=== PATIENT | female | born 1960 | race African-American/Black ===

== ENCOUNTER 2017-02-16 10:28 | Inpatient (IN) | payer OTHER ==
[2017-02-16] VITALS (14 sets, daily range): BP systolic 109–178; BP diastolic 58–103; PULSE 76–114; RESP 15–24; TEMP 97.8–98.9; O2SAT 96–100
[~2017-02-16] VITALS: Ht 152.4 cm; Wt 95.5 kg
[~2017-02-16 10:28] MED LIST: ASPI1TAB69 PO; ASPI81TA82 PO; CYCL1TAB29 PO; FLON0.053; FLUT50SP EACH NARE; GLIP10TA6 PO; IBUP800T23 PO; LISI40TA PO; NITR1SUB3 SL; SIMV5TAB3 PO
[2017-02-16] MEDS ORDERED: ASPIRIN 325 MG TAB PO ONE (11:00)
[2017-02-16] MEDS ORDERED: SODIUM CHLORIDE 0.9% FLUSH 10 ML FLUSH IVF PRN (11:00)
--- NOTE | 2017-02-16 11:02 | PD ---
HPI Chief Complaint: Chest Pain Time Seen by Provider: 10:47 Travel History International Travel<30 days: No Contact w/Intl Traveler<30days: No Traveled to known affect area: No History of Present Illness HPI 56 y/o female states she's been having intermittent chest pain for 2 months but it has gotten bad over the past couple days. She states this morning's episode felt even more intense. She states she took a baby aspirin and 2 nitroglycerin and the pain is now resolved. She states rest will help to episodes clear. She states her primary care physician ordered a stress test and she was told there was a blockage based on this and she was referred to Dr. Bernard that she has elected to switch to Dr. Archer. She had a cardiac catheterization scheduled for today but this got canceled after she switched atg java developer. She denies any other concurrent complaints. Severity is now resolved. Quality when present is tight. PFSH Past Medical History Blood Disorders: No Cancer: No High Cholesterol: Yes Chest Pain: Yes Diabetes: Yes (DIET CONTROLLED) Patient Takes Glucophage: Yes (GLIPIZIDE ) Diminished Hearing: No Genitourinary: No Hypertension: Yes Musculoskeletal: No Neurologic: No Psychiatric: No Respiratory: No ?: Not Menopausal: Yes : 0 Past Surgical History Abdominal Surgery: No Cardiac Surgery: No Ear Surgery: No Endocrine Surgery: No Eye Surgery: No Genitourinary Surgery: No Gynecologic Surgery: Yes (TOTAL HYSTERECTOMY) Hysterectomy: Yes Pacemaker: No Thoracic Surgery: No Social History Alcohol Use: No Tobacco Use: No Substance Use: No Allergies-Medications (Allergen,Severity, Reaction): Coded Allergies: No Known Allergies (Verified , 12/27/16) Reported Meds & Prescriptions Reported Meds & Active Scripts Active Nitroglycerin SL (Nitroglycerin) 0.4 Mg Subl 0.4 Mg SL DIRECTED PRN ONE TABLET UNDER THE TONGUE NEEDED FOR CHEST PAIN, MAY REPEAT EVERY FIVE MINUTES FOR A TOTAL OF 3 DOSES OR CALL 911 IF NO RELIEF Reported Aspir-81 (Aspirin) 81 Mg Tabdr Lisinopril 40 Mg Tab 40 Mg PO DAILY Glipizide 10 Mg Tab 10 Mg PO DAILY Take 30 minutes before a meal Review of Systems Except as stated in HPI: all other systems reviewed are Neg Physical Exam Narrative GENERAL: Well-nourished, well-developed patient. SKIN: Warm and dry. HEAD: Normocephalic and atraumatic. EYES: No injection or drainage. ENT: No nasal drainage noted. NECK: Supple, trachea midline. CARDIOVASCULAR: Regular rate and rhythm RESPIRATORY: Breath sounds equal bilaterally. No accessory muscle use. GASTROINTESTINAL: Abdomen soft, non-tender, nondistended. EXTREMITIES: No edema. NEUROLOGICAL: Awake and alert. Motor and sensory grossly within normal limits. Normal speech. Data Data Last Documented VS Vital Signs Date Time Temp Pulse Resp B/P Pulse Ox O2 Delivery O2 Flow Rate FiO2 02/16/17 11:15 88 15 145/73 99 Room Air 178/92 02/16/17 10:39 98.4 Orders Electrocardiogram (02/16/17 ) Electrocardiogram (02/16/17 10:48) Ckmb (Isoenzyme) Profile (02/16/17 10:48) Complete Blood Count With Diff (02/16/17 10:48) Comprehensive Metabolic Panel (02/16/17 10:48) Magnesium (Mg) (02/16/17 10:48) Prothrombin Time / Inr (Pt) (02/16/17 10:48) Act Partial Throm Time (Ptt) (02/16/17 10:48) Troponin I (02/16/17 10:48) Chest, Single Ap (02/16/17 10:48) Ecg Monitoring (02/16/17 10:48) Bilateral Bp Monitoring (02/16/17 10:48) Iv Access Insert/Monitor (02/16/17 10:48) Oximetry (02/16/17 10:48) Sodium Chloride 0.9% Flush (Ns Flush) (02/16/17 11:00) Aspirin (Aspirin) (02/16/17 11:00) Nitroglycerin 2% Oint (Nitroglycerin 2% (02/16/17 11:15) CKMB (02/16/17 10:50) CKMB% (02/16/17 10:50) Heparin Infusion FROILAN.Q1H (02/16/17 12:16) Heparin Inj (Heparin Inj) (02/16/17 12:30) Heparin Inj (Heparin Inj) (02/16/17 18:30) Heparin Inj (Heparin Inj) (02/16/17 18:30) Heparin-D5w Inj (Heparin-D5w Inj) (02/16/17 12:30) Cbc No Diff, Includes Plts (02/19/17 06:00) Act Partial Throm Time (Ptt) (02/16/17 19:16) Occult Blood (Hemoccult) Stool (02/16/17 12:16) Diet Npo (02/16/17 Lunch) Consult Cardiology (02/16/17 ) Admit Order (Ed Use Only) (02/16/17 12:24) Admit To Inpatient (02/16/17 ) Code Status (02/16/17 12:24) Vital Signs (Adult) FROILAN.Q4H (02/16/17 12:24) Activity Oob With Assistance (02/16/17 12:24) Aircraft Maintenance Engineer / Telemetry FROILAN.Q8H (02/16/17 12:24) Resp Oxygen Jesus C Titrat 1-4 L (02/16/17 ) Sodium Chloride 0.9% Flush (Ns Flush) (02/16/17 12:30) Sodium Chloride 0.9% Flush (Ns Flush) (02/16/17 21:00) Inpatient Certification (02/16/17 ) Labs Laboratory Tests Test 02/16/17 10:50 White Blood Count 8.2 TH/MM3 Red Blood Count 4.98 MIL/MM3 Hemoglobin 12.7 GM/DL Hematocrit 39.8 % Mean Corpuscular Volume 79.9 FL Mean Corpuscular Hemoglobin 25.4 PG Mean Corpuscular Hemoglobin 31.8 % Concent Red Cell Distribution Width 14.6 % Platelet Count 241 TH/MM3 Mean Platelet Volume 8.4 FL Neutrophils (%) (Auto) 48.5 % Lymphocytes (%) (Auto) 40.5 % Monocytes (%) (Auto) 8.6 % Eosinophils (%) (Auto) 1.7 % Basophils (%) (Auto) 0.7 % Neutrophils # (Auto) 4.0 TH/MM3 Lymphocytes # (Auto) 3.3 TH/MM3 Monocytes # (Auto) 0.7 TH/MM3 Eosinophils # (Auto) 0.1 TH/MM3 Basophils # (Auto) 0.1 TH/MM3 CBC Comment DIFF FINAL Differential Comment Prothrombin Time 10.7 SEC Prothromb Time International 1.0 RATIO Ratio Activated Partial 25.3 SEC Thromboplast Time Sodium Level 139 MEQ/L Potassium Level 4.4 MEQ/L Chloride Level 105 MEQ/L Carbon Dioxide Level 26.5 MEQ/L Anion Gap 8 MEQ/L Blood Urea Nitrogen 16 MG/DL Creatinine 1.03 MG/DL Estimat Glomerular Filtration 67 ML/MIN Rate Random Glucose 303 MG/DL Calcium Level 8.8 MG/DL Magnesium Level 2.0 MG/DL Total Bilirubin 0.3 MG/DL Aspartate Amino Transf 29 U/L (AST/SGOT) Alanine Aminotransferase 39 U/L (ALT/SGPT) Alkaline Phosphatase 135 U/L Total Creatine Kinase 114 U/L Creatine Kinase MB 0.8 NG/ML Troponin I LESS THAN 0.02 NG/ML Total Protein 8.0 GM/DL Albumin 3.4 GM/DL MDM Medical Decision Making Medical Screen Exam Complete: Yes Emergency Medical Condition: Yes Medical Record Reviewed: Yes (past history confirmed) Interpretation(s) EKG is normal sinus rhythm at [address] segment changes or T-wave inversion CBC & BMP Diagram 02/16/17 10:50 Last 24 hours Impressions Chest X-Ray 02/16/17 1048 Signed Impressions: Service Date/Time: Thursday, February 16, 2017 10:49 - CONCLUSION: Minimal atelectasis otherwise no evidence of acute process. Srinath Malloy MD Differential Diagnosis VA, angina, musculoskeletal, gastritis Narrative Course Will check blood work, chest x-ray and dose with additional aspirin and monitor patient developed pain, nitro paste ordered patient updated and agrees to admit Physician Communication Physician Communication dr Negrete states to start on heparin and work on getting nuclear stress test results from Dr. Bernard to find area of defect resident team states to admit under dr mukherjee and notify about need for records Diagnosis Primary Impression: Angina at rest Admitting Information Admitting Physician Requests: Admit Kelly Singleton MD Feb 16, 2017 11:02
[2017-02-16 11:04] LABS: BASOPHIL # 0.1 TH/MM3 (0-0.2); BASOPHIL % 0.7 % (0.0-2.0); EOSINOPHIL # 0.1 TH/MM3 (0-0.4); EOSINOPHIL % 1.7 % (0.0-4.0); HEMATOCRIT 39.8 % (35.0-46.0); HEMO FLAGS DIFF FINAL; LYMPH % 40.5 % (9.0-44.0); LYMPHOCYTE # 3.3 TH/MM3 (1.0-4.8); MEAN CELL VOLUME 79.9 FL (80.0-100.0); MEAN CORPUSCULAR HEMOGLOBIN 25.4 PG (27.0-34.0); MEAN CORPUSCULAR HGB CONC 31.8 % (32.0-36.0); MONO % 8.6 % (0.0-8.0); NEUT % 48.5 % (16.0-70.0); PLATELET COUNT 241 TH/MM3 (150-450); RED BLOOD COUNT 4.98 MIL/MM3 (4.00-5.30); RED CELL DISTRIBUTION WIDTH 14.6 % (11.6-17.2); WHITE BLOOD COUNT 8.2 TH/MM3 (4.0-11.0)
[2017-02-16 11:14] LABS: APTT (PATIENT) 25.3 SEC (24.3-30.1); PROTHROMBIN TIME - PATIENT 10.7 SEC (9.8-11.6)
[2017-02-16] MEDS ORDERED: NITROGLYCERIN 2% OINT 1 GM PACKET TOP ONE (11:15)
[2017-02-16 11:35] LABS: ALKALINE PHOSPHATASE 135 U/L (45-117); ALT (GPT) 39 U/L (10-53); ANION GAP 8 MEQ/L (5-15); AST (GOT) 29 U/L (15-37); BICARBONATE 26.5 MEQ/L (21.0-32.0); BLOOD UREA NITROGEN 16 MG/DL (7-18); CHLORIDE 105 MEQ/L (98-107); CREATINE KINASE 114 U/L (26-192); GLOMERULAR FILTRATION RATE 67 ML/MIN (>89); POTASSIUM 4.4 MEQ/L (3.5-5.1); SODIUM (NA) 139 MEQ/L (136-145); TOTAL BILIRUBIN ADULT 0.3 MG/DL (0.2-1.0)
[2017-02-16] MEDS ORDERED: ASPI81TA81 (11:43)
[2017-02-16 11:48] LABS: CKMB 0.8 NG/ML (0.5-3.6)
--- NOTE | 2017-02-16 11:51 | RADRPT ---
EXAM DATE/TIME: 02/16/2017 10:49 [facility] COMPARISON: No previous studies available for comparison. INDICATIONS : Chest pain. MEDICAL HISTORY : Hypertension. Diabetes mellitus type II. Heart blockage. SURGICAL HISTORY : None. ENCOUNTER: Initial ACUITY: 3 weeks PAIN SCORE: 10/10 LOCATION: Bilateral chest FINDINGS: A single view of the chest demonstrates the lungs to be symmetrically aerated without evidence of mas s, infiltrate or effusion. Minimal atelectasis is identified in the right midlung and left base. The cardiomediastinal contours are unremarkable. Osseous structures are intact. CONCLUSION: Minimal atelectasis otherwise no evidence of acute process. Srinath Malloy MD on February 16, 2017 at 11:49 Board Certified Radiologist. This report was verified electronically.
[2017-02-16] MEDS ORDERED: SODIUM CHLORIDE 0.9% FLUSH 10 ML FLUSH IV FLUSH PRN ×2 (12:30→14:15)
[2017-02-16] MEDS ORDERED: HEPARIN SODIUM - IV 10,000 UNITS/10 ML VIAL IV ONE (12:30)
[2017-02-16] MEDS ORDERED: HEPARIN-D5W 25,000 U/250 ML 250 ML IV SCH (12:30)
--- NOTE | 2017-02-16 13:55 | HHI.HP ---
[facility] Service Family Medicine Primary Care Physician Stephen Perez MD Admission Diagnosis angina Diagnoses: International Travel<30 Days: No Contact w/Intl Traveler<30days: No Known Affected Area: No History of Present Illness Patient is a 56 year old female with past history of HTN and DM2 who presented to the ED with chest pain. For the past 3 months she has had intermittent chest tightness, left sided, accompanied by shortness of breath, provoked by physical activity. No tenderness of the chest, nausea, vomiting, fever, chill, arm or jaw pain, sweating, weakness. She states she sees Dr. Perez for primary care , who sent her to have a nuclear stress stress test, which was abnormal. She was also followed with by Dr Bernard for cardiology. Recently she saw for a second opinion. The patient stated she was going to have a cardiac catheterization today, however it was cancelled after changing cardiologists. Over the past week the tightness has gotten worse, especially the past two days. At this point the tightness is exacerbated by minimal physical activity such as walking up stairs or picking anything up. She states she took nitro at 1140pm (02/16/17) and at 900 this morning (02/16/17). No other complaints of abdominal pain, change in bowel habits, change in urinary habits. (Jerry Griffith MD R1) Review of Systems Constitutional: DENIES: Diaphoretic episodes, Fatigue, Fever, Chills, Dizziness , Night Sweats Endocrine: DENIES: Polydipsia, Polyuria Eyes: DENIES: Blurred vision, Diplopia, Eye pain, Vision loss, Double Vision Ears, nose, mouth, throat: DENIES: Tinnitus, Hearing loss, Nasal discharge, Throat pain, Hoarseness, Ear Pain, Running Nose Respiratory: COMPLAINS OF: Shortness of breath, DENIES: Cough, Snoring, Wheezing, Hemoptysis, Sputum production Cardiovascular: COMPLAINS OF: Chest pain, Palpitations, Dyspnea on Exertion, Lower Extremity Edema (normal), DENIES: Syncope Gastrointestinal: DENIES: Abdominal pain, Black stools, Bloody stools, Constipation, Diarrhea, Nausea, Vomiting Genitourinary: DENIES: Urinary frequency, Urinary incontinence, Urgency, Hematuria, Dysuria, Nocturia Musculoskeletal: DENIES: Joint pain, Muscle aches, Joint Swelling Integumentary: DENIES: Rash Neurologic: DENIES: Abnormal gait, Headache, Localized weakness, Paresthesias Psychiatric: DENIES: Anxiety, Confusion, Depression (Jerry Griffith MD R1) Past Family Social History Past Medical History HTN DM type 2 (on glipizide) Past Surgical History Total hysterectomy Reported Medications Reported Meds & Active Scripts Active Nitroglycerin SL (Nitroglycerin) 0.4 Mg Subl 0.4 Mg SL DIRECTED PRN ONE TABLET UNDER THE TONGUE NEEDED FOR CHEST PAIN, MAY REPEAT EVERY FIVE MINUTES FOR A TOTAL OF 3 DOSES OR CALL 911 IF NO RELIEF Reported Aspir-81 (Aspirin) 81 Mg Tabdr Lisinopril 40 Mg Tab 40 Mg PO DAILY Glipizide 10 Mg Tab 10 Mg PO DAILY Take 30 minutes before a meal (Jerry Griffith MD R1) Allergies: Coded Allergies: No Known Allergies (Verified , 12/27/16) Family History Adopted Social History EtOH : none Smoking: never Illicit: Cocaine, marijuana in her 20s lives in [facility] in an apartment alone (Jerry Griffith MD R1) Physical Exam Vital Signs Vital Signs Date Time Temp Pulse Resp B/P Pulse Ox O2 Delivery O2 Flow Rate FiO2 02/16/17 13:10 87 20 170/103 99 02/16/17 11:15 88 15 145/73 99 Room Air 178/92 02/16/17 10:50 98 Room Air 02/16/17 10:48 90 18 99 Room Air 02/16/17 10:39 98.4 98 18 149/83 99 02/16/17 10:33 98.9 104 24 173/93 98 Physical Exam GENERAL: This is a well-nourished, well-developed patient, in no apparent distress. SKIN: No rashes, ecchymoses or lesions. Cool and dry. HEAD: Atraumatic. Normocephalic. No temporal or scalp tenderness. EYES: Pupils equal round and reactive. Extraocular motions intact. No scleral icterus. No injection or drainage. ENT: Nose without bleeding, purulent drainage or septal hematoma. Throat without erythema, tonsillar hypertrophy or exudate. Uvula midline. Airway patent. NECK: Trachea midline. No JVD or lymphadenopathy. Supple, nontender, no meningeal signs. CARDIOVASCULAR: Regular rate and rhythm without murmurs, gallops, or rubs. RESPIRATORY: Clear to auscultation. Breath sounds equal bilaterally. No wheezes , rales, or rhonchi. GASTROINTESTINAL: Abdomen soft, non-tender, nondistended. No hepato-splenomegaly , or palpable masses. No guarding. MUSCULOSKELETAL: Extremities without clubbing, cyanosis, or edema. No joint tenderness, effusion, or edema noted. No calf tenderness. NEUROLOGICAL: Awake and alert. Cranial nerves II through XII intact. Motor and sensory grossly within normal limits. Five out of 5 muscle strength in all muscle groups. Normal speech. Laboratory Laboratory Tests Test 02/16/17 10:50 White Blood Count 8.2 Red Blood Count 4.98 Hemoglobin 12.7 Hematocrit 39.8 Mean Corpuscular Volume 79.9 Mean Corpuscular Hemoglobin 25.4 Mean Corpuscular Hemoglobin 31.8 Concent Red Cell Distribution Width 14.6 Platelet Count 241 Mean Platelet Volume 8.4 Neutrophils (%) (Auto) 48.5 Lymphocytes (%) (Auto) 40.5 Monocytes (%) (Auto) 8.6 Eosinophils (%) (Auto) 1.7 Basophils (%) (Auto) 0.7 Neutrophils # (Auto) 4.0 Lymphocytes # (Auto) 3.3 Monocytes # (Auto) 0.7 Eosinophils # (Auto) 0.1 Basophils # (Auto) 0.1 CBC Comment DIFF FINAL Differential Comment Prothrombin Time 10.7 Prothromb Time International 1.0 Ratio Activated Partial 25.3 Thromboplast Time Sodium Level 139 Potassium Level 4.4 Chloride Level 105 Carbon Dioxide Level 26.5 Anion Gap 8 Blood Urea Nitrogen 16 Creatinine 1.03 Estimat Glomerular Filtration 67 Rate Random Glucose 303 Calcium Level 8.8 Magnesium Level 2.0 Total Bilirubin 0.3 Aspartate Amino Transf 29 (AST/SGOT) Alanine Aminotransferase 39 (ALT/SGPT) Alkaline Phosphatase 135 Total Creatine Kinase 114 Creatine Kinase MB 0.8 Troponin I LESS THAN 0.02 Total Protein 8.0 Albumin 3.4 (Jerry Griffith MD R1) Result Diagram: 02/16/17 1050 02/16/17 1050 Imaging Last Impressions Chest X-Ray 02/16/17 1048 Signed Impressions: Service Date/Time: Thursday, February 16, 2017 10:49 - CONCLUSION: Minimal atelectasis otherwise no evidence of acute process. Srinath Malloy MD (Jerry Griffith MD R1) Assessment and Plan Assessment and Plan 56 year old female with DM2 and HTN who came into the ED complaining of chest tightness. She has had chest tightness for 3 month, had an abnormal nuclear stress test and had a cardiac catheterization with stent scheduled for 02/16/17 which was cancelled when she changed cardiologists. Continues to have severe chest tightness and shortness of breath during minimal physical activity upon admission. Code Status Full (Jerry Griffith MD R1) Attending Attestation THIS PATIENT WAS SEEN AND EXAMINED. CASE DISCUSSED WITH THE RESIDENT PHYSICIANS. I HAVE REVIEWED THE RECORD AND AGREE WITH THE ABOVE NOTE AND PLAN OF CARE WAS DISCUSSED. I HAVE AUTHORIZED THE ORDER FOR ADMISSION TO AN IN- PATIENT STATUS. (Reyes Al MD) Problem List: (1) Chest pain, atypical Status: Acute Plan: 3 months of chest pain, worsening, had a scheduled cath with sten on which was cancelled. -Consult cardiology, appreciate recommendations -Nitro Q8 prn chest pain -F/U lipid profile -Troponin >.2 at admission, follow up troponin @ 1400, 2000 - ASA - [place]/morphine PRN pain (2) Diabetes mellitus type 2 in obese Status: Chronic Plan: Held home medications - Low dose sliding scale insulin (3) Benign hypertension Status: Chronic Plan: Continue home meds -Lisinopril 40mg daily (4) FEN Status: Acute Plan: Fluids -Maintenance NS 140 Electrolytes -Monitor and correct as needed Nutrition -NPO for possible cath, F/U cardiac recommendations PPX -SCDs (likely to have catheterization soon) - Zofran prn (Jerry Griffith MD R1) Physician Certification 2 Midnight Certification Type: Admission for Inpatient Services Order for Inpatient Services The services are ordered in accordance with Medicare regulations or non- Medicare payer requirements, as applicable. In the case of services not specified as inpatient-only, they are appropriately provided as inpatient services in accordance with the 2-midnight benchmark. Estimated LOS (days): 2 2 days is the estimated time the patient will need to remain in the hospital, assuming treatment plan goals are met and no additional complications. Post-Hospital Plan: Home (Jerry Griffith MD R1) Jerry Griffith MD R1 Feb 16, 2017 13:54 Reyes Al MD Feb 16, 2017 16:56
[2017-02-16] MEDS ORDERED: ONDANSETRON HCL 4 MG/2 ML VIAL IVP PRN (14:15)
[2017-02-16] MEDS ORDERED: LACTULOSE SYRUP 20 GM/30 ML CUP PO PRN (14:15)
[2017-02-16] MEDS ORDERED: GLUCAGON 1 MG/ML VIAL OTHER PRN (14:15)
[2017-02-16] MEDS ORDERED: ACETAMINOPHEN/HYDROcodone 325 MG/10 MG TAB PO PRN (14:15)
[2017-02-16] MEDS ORDERED: SENNOSIDES 8.6 MG TAB PO PRN (14:15)
[2017-02-16] MEDS ORDERED: ZOLPIDEM TARTRATE 5 MG TAB PO PRN (14:15)
[2017-02-16] MEDS ORDERED: NALOXONE HCL 0.4 MG/ML AMP IV PRN ×2 (14:15)
[2017-02-16] MEDS ORDERED: MORPHINE SULFATE 4 MG/ML INJ IV PRN (14:15)
[2017-02-16] MEDS ORDERED: ACETAMINOPHEN 325 MG TAB PO PRN (14:15)
[2017-02-16] MEDS ORDERED: BISACODYL 10 MG SUPP RECTAL PRN (14:15)
[2017-02-16] MEDS ORDERED: IBUPROFEN 400 MG TAB PO PRN (14:15)
[2017-02-16] MEDS ORDERED: MAGNESIUM HYDROXIDE SUSP 30 ML CUP PO PRN (14:15)
[2017-02-16] MEDS ORDERED: DEXTROSE 50% IN WATER 50 ML VIAL(D50) IV PRN (14:15)
[2017-02-16] MEDS ORDERED: NITROGLYCERIN 0.4 MG SL 25 TABS/BTL SL PRN (14:30)
--- NOTE | 2017-02-16 14:46 | MB ---
cc: JOSE ANTONIO HAYDEN MD DATE OF CONSULTATION: 02/16/2017 REASON FOR CONSULTATION: Angina. HISTORY OF PRESENT ILLNESS: Miss Cruz is a 56 year-old a 56-year-old female he does have a history of hypertension and diabetes. She had initially been following with Dr. Bernard. She had a normal exercise treadmill study at her primary care providers. She subsequently because of ongoing angina was referred to Dr. Bernard. She underwent nuclear stress test which was reportedly abnormal. He subsequently requested cardiac catheterization and she elected to have a second opinion with my partner Dr. Archer. This was however scheduled for next week. The records from Dr. Bernard are not available. The patient does report progressive episodes of chest pain or any exertion. She has relief with rest. It is over her left thigh. She describes it as a tightness. She is currently pain free. PAST MEDICAL HISTORY: 1. Past medical history significant for hypertension 2. Obesity 3. diabetes. PAST SURGICAL HISTORY: Her surgical history includes a hysterectomy. SOCIAL HISTORY The patient does not smoke or drink. ALLERGIES NO KNOWN DRUG ALLERGIES. OUTPATIENT MEDICATIONS Include 1. Aspirin. 2. Lisinopril 40 mg of 20. 3. Glipizide 10 mg a day. REVIEW OF SYSTEMS Except as mentioned in HPI all 12 systems are negative. PHYSICAL EXAMINATION: On physical examination vital signs are 170 over 103 with a heart rate 87, respiratory rate of 20. IN GENERAL: In general she is a morbidly obese female in no apparent distress. NECK: Her neck is free from jugular venous distention. LUNGS: The lungs are bilaterally clear to auscultation. CARDIOVASCULAR SYSTEM: She has a normal S1, S2, no murmurs, rubs, or gallops were appreciated. ABDOMEN: The abdomen is soft. EXTREMITIES: The extremities are free from edema. LABORATORY VALUES: Significant for creatinine of 1.03. Her glucose is 303, The troponin is less than 0.02. EKG shows sinus tachycardia and 103 beats a minute. There are inverted T-waves inferiorly which is unchanged from her 2010 EKG. IMPRESSION/PLAN: Angina - the patient does give a history of progressive angina. She does have cardiovascular risk factors and reportedly abnormal nuclear stress test. The patient is going to be observed at this point that she is pain free. We will continue an aspirin. She has been placed on heparin. Her blood pressure is uncontrolled, in light of this and her abnormal stress test I am going to add a vasodilator; Amlodipine. Consideration will be given towards catheterization when she has better blood pressure control. Camille Robles /2:14 PM /2:35 PM
[2017-02-16] MEDS ORDERED: SODIUM CHLOR 0.9% 1000 ML INJ 1,000 ML IV SCH (15:00)
[2017-02-16] MEDS: amLODIPine BESYLATE 5 MG TAB PO SCH (15:30)
[2017-02-16] MEDS: INSULIN ASPART SUPPLEMENTAL SCALE SQ SCH ×2 (15:41→21:50)
[2017-02-16] MEDS: ACETAMINOPHEN/HYDROcodone 325 MG/5 MG TAB PO PRN (17:46)
[2017-02-16] MEDS ORDERED: HEPARIN SODIUM - IV 10,000 UNITS/10 ML VIAL IV PRN ×2 (18:30)
[2017-02-16 18:42] LABS: APTT (PATIENT) 36.1 SEC (24.3-30.1)
[2017-02-16] MEDS: DOCUSATE SODIUM 50 MG/SENNA 8.6 MG TAB PO SCH (21:00)
[2017-02-16] MEDS: SODIUM CHLORIDE 0.9% FLUSH 10 ML FLUSH IV FLUSH SCH (21:00)
[2017-02-16] MEDS ORDERED: SODIUM CHLORIDE 0.9% FLUSH 10 ML FLUSH IV FLUSH SCH (21:00)
[2017-02-16] MEDS: NITROGLYCERIN 2% OINT 1 GM PACKET TOPICAL SCH (21:46)
[2017-02-17] VITALS (27 sets, daily range): BP systolic 100–138; BP diastolic 50–81; PULSE 68–112; RESP 16–18; TEMP 98–99.1; O2SAT 98–99
[2017-02-17 02:00] LABS: APTT (PATIENT) 40.5 SEC (24.3-30.1)
[2017-02-17 03:56] LABS: HEMATOCRIT 36.7 % (35.0-46.0); MEAN CELL VOLUME 79.5 FL (80.0-100.0); MEAN CORPUSCULAR HEMOGLOBIN 25.5 PG (27.0-34.0); MEAN CORPUSCULAR HGB CONC 32.1 % (32.0-36.0); PLATELET COUNT 221 TH/MM3 (150-450); RED BLOOD COUNT 4.62 MIL/MM3 (4.00-5.30); RED CELL DISTRIBUTION WIDTH 14.4 % (11.6-17.2); REVIEW FLAG FINAL; WHITE BLOOD COUNT 9.3 TH/MM3 (4.0-11.0)
[2017-02-17 04:32] LABS: ALKALINE PHOSPHATASE 104 U/L (45-117); ALT (GPT) 35 U/L (10-53); ANION GAP 9 MEQ/L (5-15); AST (GOT) 18 U/L (15-37); BICARBONATE 26.8 MEQ/L (21.0-32.0); BLOOD UREA NITROGEN 15 MG/DL (7-18); CHLORIDE 105 MEQ/L (98-107); CREATINE KINASE 111 U/L (26-192); GLOMERULAR FILTRATION RATE 91 ML/MIN (>89); HDL CHOLESTEROL 34.5 MG/DL (40.0-60.0); LDL CHOLESTEROL 142 MG/DL (0-99); POTASSIUM 3.8 MEQ/L (3.5-5.1); SODIUM (NA) 141 MEQ/L (136-145); TOTAL BILIRUBIN ADULT 0.2 MG/DL (0.2-1.0)
[2017-02-17] MEDS: ACETAMINOPHEN/HYDROcodone 325 MG/5 MG TAB PO PRN ×2 (05:22→14:52)
[2017-02-17] MEDS: NITROGLYCERIN 2% OINT 1 GM PACKET TOPICAL SCH ×3 (05:44→21:21)
[2017-02-17] MEDS: INSULIN ASPART SUPPLEMENTAL SCALE SQ SCH ×4 (05:53→21:19)
[2017-02-17] MEDS: SODIUM CHLORIDE 0.9% FLUSH 10 ML FLUSH IV FLUSH SCH ×2 (08:12→21:21)
[2017-02-17] MEDS: DOCUSATE SODIUM 50 MG/SENNA 8.6 MG TAB PO SCH ×2 (08:12→21:00)
[2017-02-17] MEDS: amLODIPine BESYLATE 5 MG TAB PO SCH (08:12)
[2017-02-17] MEDS ORDERED: LISINOPRIL 20 MG TAB PO SCH (09:00)
[2017-02-17] MEDS: SODIUM CHLOR 0.9% 1000 ML INJ 1,000 ML IV SCH (09:03)
--- NOTE | 2017-02-17 09:05 | PD.CARD.PN ---
Subjective Subjective Remarks Pt without complaints Objective Medications Current Medications Medications (Trade) Dose Ordered Sig/Telma Route Start Time Stop Time Status Last Admin (Heparin Inj) 5,000 units UNSCH PRN IV 02/16/17 18:30 Heparin Sodium (Porcine) 2500 units 2,500 units UNSCH PRN IV 02/16/17 18:30 Heparin Sodium/ Dextrose 250 ml @ 0 mls/hr TITRATE IV 02/16/17 12:30 02/16/17 13:10 (NS 1000 ml Inj) 1,000 ml @ 0 mls/hr Q7H9M IV 02/16/17 15:00 02/16/17 15:25 (NS Flush) 2 ml UNSCH PRN IV FLUSH 02/16/17 14:15 (NS Flush) 2 ml BID IV FLUSH 02/16/17 21:00 (Tylenol) 650 mg Q4H PRN PO 02/16/17 14:15 02/16/17 15:30 (Zofran Inj) 4 mg Q6H PRN IVP 02/16/17 14:15 (Ambien) 5 mg HS PRN PO 02/16/17 14:15 (Mary Beth-Colace) 1 tab BID PO 02/16/17 21:00 (Milk Of Magnesia Liq) 30 ml Q12H PRN PO 02/16/17 14:15 (Senokot) 17.2 mg Q12H PRN PO 02/16/17 14:15 (Dulcolax Supp) 10 mg DAILY PRN RECTAL 02/16/17 14:15 (Lactulose Liq) 30 ml DAILY PRN PO 02/16/17 14:15 (D50w (Vial) Inj) 50 ml UNSCH PRN IV 02/16/17 14:15 (Glucagon Inj) 1 mg UNSCH PRN OTHER 02/16/17 14:15 (Motrin) 400 mg Q6H PRN PO 02/16/17 14:15 ([place] 5-325 Mg) 1 tab Q4H PRN PO 02/16/17 14:15 02/17/17 05:22 ([place] 10-325 Mg) 1 tab Q4H PRN PO 02/16/17 14:15 (Morphine Inj) 4 mg Q3H PRN IV 02/16/17 14:15 8/11/17 23:11 (Narcan Inj) 0.4 mg UNSCH PRN IV 02/16/17 14:15 (Prinivil) 40 mg DAILY PO 02/17/17 09:00 (Norvasc) 5 mg DAILY PO 02/16/17 15:00 02/16/17 15:30 (Nitroglycerin 2% Oint) 1 inch Q8HR TOPICAL 02/16/17 22:00 02/17/17 05:44 (Pneumovax-23 Inj) 25 mcg ONCE ONCE IM 02/17/17 10:00 02/17/17 10:01 Vital Signs / I&O Vital Signs Date Time Temp Pulse Resp B/P Pulse Ox O2 Delivery O2 Flow Rate FiO2 02/17/17 08:09 96 02/17/17 07:00 91 02/17/17 07:00 98.1 97 17 100/54 99 02/17/17 06:00 84 02/17/17 05:00 74 02/17/17 04:08 85 16 102/64 98 02/17/17 04:00 80 02/17/17 03:00 81 02/17/17 02:00 88 02/17/17 01:00 80 02/17/17 00:00 88 02/16/17 23:15 76 16 118/58 96 02/16/17 23:00 87 02/16/17 22:00 114 02/16/17 21:00 92 02/16/17 20:00 98 02/16/17 19:30 98.4 94 16 109/60 100 02/16/17 19:00 88 02/16/17 15:46 100 02/16/17 15:46 97.8 100 18 141/82 96 02/16/17 14:10 101 18 156/87 99 02/16/17 13:10 87 20 170/103 99 02/16/17 11:15 88 15 145/73 99 Room Air 178/92 02/16/17 10:50 98 Room Air 02/16/17 10:48 90 18 99 Room Air 02/16/17 10:39 98.4 98 18 149/83 99 02/16/17 10:33 98.9 104 24 173/93 98 I/O 02/16/17 02/16/17 02/16/17 02/17/17 02/17/17 02/17/17 07:00 15:00 23:00 07:00 15:00 23:00 Intake Total 530 ml 612 ml Output Total 400 ml Balance 530 ml 212 ml Intake Oral 500 ml 480 ml IV Total 30 ml 132 ml Output Urine Total 400 ml # Voids 2 # Bowel Movements 0 Physical Exam GENERAL: Well developed, well nourished. No acute distress. HEENT: Jugular venous pressure is normal. CHEST: Lungs clear to auscultation bilaterally. Unlabored respiratory effort. CARDIAC: Regular rate and rhythm without S3, S4, or murmur. ABDOMEN: Soft, nontender, no hepatosplenomegaly. Bowel sounds present. EXTREMITIES: No clubbing, cyanosis, or edema. Laboratory Laboratory Tests Test 02/16/17 02/16/17 02/17/17 02/17/17 10:50 18:19 01:31 03:15 White Blood Count 8.2 TH/MM3 9.3 TH/MM3 Red Blood Count 4.98 MIL/MM3 4.62 MIL/MM3 Hemoglobin 12.7 GM/DL 11.8 GM/DL Hematocrit 39.8 % 36.7 % Mean Corpuscular Volume 79.9 FL 79.5 FL Mean Corpuscular Hemoglobin 25.4 PG 25.5 PG Mean Corpuscular Hemoglobin 31.8 % 32.1 % Concent Red Cell Distribution Width 14.6 % 14.4 % Platelet Count 241 TH/MM3 221 TH/MM3 Mean Platelet Volume 8.4 FL 8.5 FL Neutrophils (%) (Auto) 48.5 % Lymphocytes (%) (Auto) 40.5 % Monocytes (%) (Auto) 8.6 % Eosinophils (%) (Auto) 1.7 % Basophils (%) (Auto) 0.7 % Neutrophils # (Auto) 4.0 TH/MM3 Lymphocytes # (Auto) 3.3 TH/MM3 Monocytes # (Auto) 0.7 TH/MM3 Eosinophils # (Auto) 0.1 TH/MM3 Basophils # (Auto) 0.1 TH/MM3 CBC Comment DIFF FINAL Differential Comment Prothrombin Time 10.7 SEC Prothromb Time International 1.0 RATIO Ratio Activated Partial 25.3 SEC 36.1 SEC 40.5 SEC Thromboplast Time Sodium Level 139 MEQ/L 141 MEQ/L Potassium Level 4.4 MEQ/L 3.8 MEQ/L Chloride Level 105 MEQ/L 105 MEQ/L Carbon Dioxide Level 26.5 MEQ/L 26.8 MEQ/L Anion Gap 8 MEQ/L 9 MEQ/L Blood Urea Nitrogen 16 MG/DL 15 MG/DL Creatinine 1.03 MG/DL 0.79 MG/DL Estimat Glomerular Filtration 67 ML/MIN 91 ML/MIN Rate Random Glucose 303 MG/DL 174 MG/DL Calcium Level 8.8 MG/DL 8.4 MG/DL Magnesium Level 2.0 MG/DL Total Bilirubin 0.3 MG/DL 0.2 MG/DL Aspartate Amino Transf 29 U/L 18 U/L (AST/SGOT) Alanine Aminotransferase 39 U/L 35 U/L (ALT/SGPT) Alkaline Phosphatase 135 U/L 104 U/L Total Creatine Kinase 114 U/L 146 U/L 111 U/L Creatine Kinase MB 0.8 NG/ML Troponin I LESS THAN 0.02 0.05 NG/ML 0.08 NG/ML NG/ML Total Protein 8.0 GM/DL 7.0 GM/DL Albumin 3.4 GM/DL 3.0 GM/DL Triglycerides Level 228 MG/DL Cholesterol Level 222 MG/DL LDL Cholesterol 142 MG/DL HDL Cholesterol 34.5 MG/DL Cholesterol/HDL Ratio 6.43 RATIO Assessment and Plan Assessment and Plan Angina- episode of CP overnight, on 2 vasodilators -Trop 0.08 -risk/bene of cath today discussed and she is agreeable HTN- good to low today Yenny Negrete MD Feb 17, 2017 09:05
[2017-02-17 09:12] LABS: APTT (PATIENT) 39.6 SEC (24.3-30.1)
[2017-02-17] MEDS ORDERED: diphenhydrAMINE HCL 50 MG/ML VIAL IV SCH (09:15)
[2017-02-17] MEDS ORDERED: ASPIRIN 325 MG TAB PO SCH (09:15)
--- NOTE | 2017-02-17 09:19 | HHI.FPPN ---
Subjective Remarks Patient seen and examined this morning. Patient reports that last night she had another episode of chest tightness. Morphine alleviated the pain. She also noted a significant headache which she attributes to the nitroglycerine she is taking. It was mostly resolved at the time of interview. No changes in vision, weakness, numbness, tingling, confusion. No other complaints of nausea, vomiting , fever, chills, chest pain, shortness of breath, abdominal pain, change in bowel habits, change in urinary habits. (Jerry Griffith MD R1) Objective Vitals Vital Signs Date Time Temp Pulse Resp B/P Pulse Ox O2 Delivery O2 Flow Rate FiO2 02/17/17 09:08 85 02/17/17 08:09 96 02/17/17 07:00 91 02/17/17 07:00 98.1 97 17 100/54 99 02/17/17 06:00 84 02/17/17 05:00 74 02/17/17 04:08 85 16 102/64 98 02/17/17 04:00 80 02/17/17 03:00 81 02/17/17 02:00 88 02/17/17 01:00 80 02/17/17 00:00 88 02/16/17 23:15 76 16 118/58 96 02/16/17 23:00 87 02/16/17 22:00 114 02/16/17 21:00 92 02/16/17 20:00 98 02/16/17 19:30 98.4 94 16 109/60 100 02/16/17 19:00 88 02/16/17 15:46 100 02/16/17 15:46 97.8 100 18 141/82 96 02/16/17 14:10 101 18 156/87 99 02/16/17 13:10 87 20 170/103 99 02/16/17 11:15 88 15 145/73 99 Room Air 178/92 02/16/17 10:50 98 Room Air 02/16/17 10:48 90 18 99 Room Air 02/16/17 10:39 98.4 98 18 149/83 99 02/16/17 10:33 98.9 104 24 173/93 98 I/O 02/16/17 02/16/17 02/16/17 02/17/17 02/17/17 02/17/17 07:00 15:00 23:00 07:00 15:00 23:00 Intake Total 530 ml 612 ml Output Total 400 ml Balance 530 ml 212 ml Intake Oral 500 ml 480 ml IV Total 30 ml 132 ml Output Urine Total 400 ml # Voids 2 # Bowel Movements 0 (Jerry Griffith MD R1) Result Diagram: 02/17/1731402/17/17 0315 Imaging Last 48 hours Impressions Chest X-Ray 02/16/17 1048 Signed Impressions: Service Date/Time: Thursday, February 16, 2017 10:49 - CONCLUSION: Minimal atelectasis otherwise no evidence of acute process. Srinath Malloy MD Objective Remarks GENERAL: Pleasant, laying in bed, no acute distress SKIN: Warm and dry. HEAD: Atraumatic. Normocephalic. EYES: Pupils equal and round. No scleral icterus. No injection or drainage. ENT: No nasal bleeding or discharge. Mucous membranes pink and moist. NECK: Trachea midline. No JVD. CARDIOVASCULAR: Regular rate and rhythm. Normal S1/S2 RESPIRATORY: No accessory muscle use. Clear to auscultation. Breath sounds equal bilaterally. GASTROINTESTINAL: Abdomen soft, non-tender, nondistended. Hepatic and splenic margins not palpable. MUSCULOSKELETAL: Extremities without clubbing, cyanosis, or edema. No obvious deformities. NEUROLOGICAL: Awake and alert. No obvious cranial nerve deficits. Motor grossly within normal limits. Five out of 5 muscle strength in the arms and legs. Normal speech. PSYCHIATRIC: Appropriate mood and affect; insight and judgment normal. Medications and IVs Current Medications Medications (Trade) Dose Ordered Sig/Telma Route Start Time Stop Time Status Last Admin (NS 1000 ml Inj) 1,000 ml @ 0 mls/hr Q7H9M IV 02/16/17 15:00 02/16/17 15:25 (NS Flush) 2 ml UNSCH PRN IV FLUSH 02/16/17 14:15 (NS Flush) 2 ml BID IV FLUSH 02/16/17 21:00 (Tylenol) 650 mg Q4H PRN PO 02/16/17 14:15 02/16/17 15:30 (Zofran Inj) 4 mg Q6H PRN IVP 02/16/17 14:15 (Ambien) 5 mg HS PRN PO 02/16/17 14:15 (Mary Beth-Colace) 1 tab BID PO 02/16/17 21:00 (Milk Of Magnesia Liq) 30 ml Q12H PRN PO 02/16/17 14:15 (Senokot) 17.2 mg Q12H PRN PO 02/16/17 14:15 (Dulcolax Supp) 10 mg DAILY PRN RECTAL 02/16/17 14:15 (Lactulose Liq) 30 ml DAILY PRN PO 02/16/17 14:15 (D50w (Vial) Inj) 50 ml UNSCH PRN IV 02/16/17 14:15 (Glucagon Inj) 1 mg UNSCH PRN OTHER 02/16/17 14:15 (Motrin) 400 mg Q6H PRN PO 02/16/17 14:15 ([place] 5-325 Mg) 1 tab Q4H PRN PO 02/16/17 14:15 02/17/17 05:22 ([place] 10-325 Mg) 1 tab Q4H PRN PO 02/16/17 14:15 (Morphine Inj) 4 mg Q3H PRN IV 02/16/17 14:15 02/16/17 23:11 (Narcan Inj) 0.4 mg UNSCH PRN IV 02/16/17 14:15 Nitroglycerin 1 inch 1 inch Q8HR TOPICAL 02/16/17 22:00 02/17/17 05:44 (NS 1000 ml Inj) 1,000 ml @ 30 mls/hr Q24H IV 02/17/17 09:03 02/22/17 09:02 (Norvasc) 2.5 mg DAILY PO 02/18/17 09:00 (Prinivil) 20 mg DAILY PO 02/18/17 09:00 (Lipitor) 80 mg HS PO 02/17/17 21:00 (Coreg) 3.125 mg Q12HR PO 02/17/17 21:00 (Jerry Griffith MD R1) A/P Assessment and Plan 56 year old female with DM2 and HTN who came into the ED complaining of chest tightness. She has had chest tightness for 3 month, had an abnormal nuclear stress test and had a cardiac catheterization with stent scheduled for 02/16/17 which was cancelled when she changed cardiologists. Continues to have severe chest tightness and shortness of breath during minimal physical activity upon admission. Discharge Planning Need to evaluate s/p cath, cardio clearance (Jerry Griffith MD R1) Attending Attestation Patient seen and examined. Case reviewed and discussed with the resident team. Agree with plan of care as discussed with me and documented in the resident note. (Reyes Al MD) Problem List: (1) Chest pain, atypical Status: Acute Plan: 3 months of chest pain, worsening, had a scheduled cath with sten on which was cancelled. -Consult cardiology, appreciate recommendations -F/U cardiac catheterization today (02/17/17) -Nitro Q8 prn chest pain -F/U lipid profile -Troponin >.2 at admission, uptrending .05, then .08 - ASA - [place]/morphine PRN pain (2) Diabetes mellitus type 2 in obese Status: Acute Plan: Held home medications - Low dose sliding scale insulin (3) Benign hypertension Status: Chronic Plan: Continue home meds -Lisinopril 40mg daily (4) FEN Status: Acute Plan: Fluids -Maintenance NS 140 Electrolytes -Monitor and correct as needed Nutrition -NPO for possible cath, F/U cardiac recommendations PPX -SCDs (likely to have catheterization soon) - Zofran prn (Jerry Griffith MD R1) Jerry Griffith MD R1 Feb 17, 2017 09:19 Reyes Al MD Feb 18, 2017 15:11
[2017-02-17] MEDS: PNEUMOCOCCAL POLYVALENT INJ 25 MCG/0.5 ML SYR IM ONE ×2 (10:00→14:53)
[2017-02-17] MEDS ORDERED: INFLUENZA VIRUS VACCINE (QUADRIVALENT) 0.5 ML SYR IM ONE (10:00)
[2017-02-17] MEDS ORDERED: HEPARIN-NS/PF INJ 500 ML ONE (10:53)
[2017-02-17] MEDS ORDERED: diphenhydrAMINE HCL 50 MG/ML VIAL ONE (10:54)
--- NOTE | 2017-02-17 12:37 | CATHPROC ---
[employer] I/O HIS Report Study Information Study Number Admission Scheduled Start Study Start [id number] Feb 16 2017 12:26PM 02/17/2017 Feb 17 2017 11:23AM Study Type Ronald Service Left/Possible PCI Cardiac Catheterization Admit Source Facility Department Other [facility] - [employer] Operator Physician and Clinical Staff Initial Yenny Gonzalez Blending Tank Helper Maryjo Talbot RN Blending Tank Helper Marianela Thompson RN/BA Recorder Yulia Rizzo RT(R) Scrub Jorden Rolon RCIS(BS) Procedures Performed Procedure Location (Site) Vessel Name Angiogram LV LV Ventricle Coronary Angiograms LCA Left Coronary Coronary Angiograms RCA Right Coronary Coronary Angiograms TSE TSE L Heart Cath Wire insertion Fem Art (right) Femoral Art Equipment Time Sprinkling Truck Driver Description Size Mfg Part Number Used/Scraped TRANSDUCER, TRSatariiAVE [id number] 11:24 TENORIO TALBOT * Used W/STOCKCOCK *[id number] *[id number] *[id number] *[id number] *[id number] 11:24 MEDLINE INDUSTRIES PACK, CCL CUSTOM * Used *[id number] 11:24 MEDLINE PACER PEN, SKIN DUAL W/ RULER * Used *[id number] 11:24 Lang-8 MEDICAL SHEATH, FR4.5 PRELUDE 11CM FR 4.5 Used 035ACT [id number] 11:24 Lang-8 MEDICAL WIRE, 3MMJ .035 180CM 180CM Used *[id number] 11:24 NAMIC CONTRAST CONTROLLER, SPIKE * Used *[id number] 11:24 NAMIC MANIFOLD, 4 PORT * Used *[id number] 11:24 NYCOMED OMNIPAQUE, 350 MG, 150ML 150ML [id number] Used 12:09 NYCOMED OMNIPAQUE, 350 MG, 150ML 150ML [id number] Used [id number] 11:24 WALKER MEDICAL BLANKET,WARM AIR CCL * Used *[id number] 11:24 WALKER MEDICAL BLANKET,WARM AIR CCL * Used *[id number] History: Current Medications Medication Dosage/Unit Route Frequency Last Date/Time Taken ASA LISINOPRIL Statins (any) Glypizide History: Allergies Allergy Reaction No Known Allergies History: Risk Factors Family History of Hypertension Dyslipidemia Previous [place] Previous Heart Failure Premature CAD Yes Yes No No No Prior Valve Prior PCI Prior CABG Surgery No No No Cerebrovascular Peripheral Artery Chronic Lung On Dialysis Diabetes Diabetes Therapy Disease Disease Disease No No No No Yes Oral History: Symptoms/Diagnosis Selection Items Chest pain History: Stress Tests Stress or Imaging Studies Performed Yes Standard Exercise Stress Test No Stress Echo No Stress Test SPECT Stress Test SPECT Result Stress Test SPECT Ischemia Risk/Extent Yes Positive Intermediate Stress Test CMR No Cardiac CTA Coronary Calcium Score No No History: Other Disease Selection Items HTN History: Other Current Smoker No Labs Hgb (g/dl) Hct (%) RBC (MIL/MM3) WBC (l/cumm) Platelets (thousands) 11.60-17.00 35.00-51.00 4.00-5.90 4.00-11.00 150.00-450.00 11.8 36.7 4.6 9.3 221 Glucose (mg/dl) BUN (mg/dl) Creatinine (mg/dl) BUN:Creatinine (1:x) 74.00-106.00 7.00-18.00 0.50-1.30 10.00-20.00 174 15 0.7 21.4 Na (meq/l) K (meq/l) Cl (meq/l) CO2 (mmol/L) Ca (mg/dl) 136.00-145.00 3.50-5.10 98.00-107.00 21.00-32.00 8.50-10.10 141 3.8 105 26.3 8.4 PT (sec) PTT (sec) INR (PTT:PT) 9.80-11.60 24.30-30.10 0.90-1.10 10.7 40.5 1 Troponin I (ng/ml) CPK (u/l) CPK-MB (ng/ML) 0.02-0.05 26.00-308.00 0.50-3.60 0.08 111 0.8 Medication Medication Total Dose (Bolus/Oral) Medication Total Dosage/Unit 1% XYLOCAINE 20 mL BENADRYL 25 mg FENTANYL 50 mcg NTG (IC) 100 mcg Medications (Bolus/Oral) Medication Time Given Dosage/Unit Administered By Reason BENADRYL 02/17/2017 11:25:47 AM 25 mg Maryjo Talbot Patient arrived on 25 mg BENADRYL given by Maryjo Talbot, RN in Left Antecubital via Peripheral I V. FENTANYL 02/17/2017 11:52:50 AM 50 mcg Maryjo Talbot Patient arrived on 50 mcg FENTANYL given by Maryjo Talbot RN via Peripheral IV. 1% XYLOCAINE 02/17/2017 11:56:26 AM 20 mL Yenny Negrete 20 mL 1% XYLOCAINE given by Yenny Negrete in Right Groin via Subcutaneous. NTG (IC) 02/17/2017 12:03:28 PM 100 mcg Jorden Rolon 100 mcg NTG (IC) given in lab by Jorden Rolon RCIS(BS) via Intra-coronary. Medication (Drip) Medication Time Given Dosage/Unit Concentration/Unit Diluent (ml) Solutio n IV Solutions 02/17/2017 11:36:01 AM 0 mL (IV) 1000 NaCl .9 Patient arrived on IV Solutions in Left Antecubital via Peripheral IV. Pump/Drip Flow = 100 ml/hr usi ng NaCl .9. Initial Case Assessment Cardiovascular HR Rhythm NIBP Chest Pain 105 REG 155/93 0 Edema Present Skin color Skin None Normal Warm Circulatory - Right Pulses Dorsalis Pedis Femoral 3 2 Scale (0,1,2,3,4,d) Circulatory - Left Pulses Dorsalis Pedis Femoral 3 2 Scale (0,1,2,3,4,d) Circulatory - Lower Extremities Color Lower Right Color Lower Left Normal Normal Neurological State Oriented to time-place- Alert Moves all extremities person Respiration - General Respiration Rate SpO2 (%) (B/min) 16 97 Final Case Assessment Cardiovascular HR Rhythm Chest Pain 104 REG 0 Edema Present Skin color Skin None Normal Warm Circulatory - Right Pulses Dorsalis Pedis Femoral 3 2 Scale (0,1,2,3,4,d) Circulatory - Left Pulses Dorsalis Pedis Femoral 3 2 Scale (0,1,2,3,4,d) Circulatory - Lower Extremities Color Lower Right Color Lower Left Normal Normal Neurological State Oriented to time-place- Alert Moves all extremities person Respiration - General Respiration Rate SpO2 (%) (B/min) 20 100 Chronological Log Time Study Chronological Log 11:24:12 Patient arrived via Bed. 11:24:13 Patient Name, D.O.B, / Armband Verified By R.N. 11:24:13 Consent signed by the physician and the patient and verified by the [employer] staff. 11:24:14 Pre-op and post- op instructions given; patient acknowledges understanding of instructions. 11:24:15 Verbal Stimulation=2 Physical Stimulation=2 Airway=2 Respiration=2 TOTAL=8. (0=absent, 1=li mited, 2=present) 11:25:47 Patient arrived on 25 mg BENADRYL given by Maryjo Talbot RN in Left Antecubital via Pe ripheral IV. Vitals capture started with the following parameters, Patient=Adult, Interval=5 min, Initial Pr vtdwgu=239 mmHg, 11:33:33 Deflation Rate=5 mmHg, Cuff placed on LEFT Arm 11:34:09 XD=226 bpm, BZYN=970/96 mmhg, SpO2=98 %, Resp=20 B/min, Pain=0, Yadiel=10, Pelayo=2 11:35:31 Reference ECG taken 11:35:39 Patient has been NPO for More than 6Hrs. 11:35:41 Skin Breakdown-NONE 11:35:49 Patient Warmer Placed on the Table. 11:35:52 A # 20 IV was noted in the Antecubital (left). Grade = 0 11:36:01 Patient arrived on IV Solutions in Left Antecubital via Peripheral IV. Pump/Drip Flow = 100 ml/hr using NaCl .9. 11:39:08 HR=97 bpm, SETW=106/96 mmhg, SpO2=97.0 %, Resp=17 B/min, Pain=0, Yadiel=10, Pelayo=2 11:44:12 History and physical on the chart or being dictated. Assessment: Initial Case, YP=900 BPM, Rhythm=REG, EAND=501/93 mmhg, Chest Pain=0, Edema=None, Color=Normal, Skin = Warm Right Pulses: Marquez Ped=3, Femoral=2 Left Pulses: Marquez Ped=3, Femoral=2 11:44:22 Lower Right Extremities: Color=Normal Lower Left Extremities: Color=Normal Neurological: State=Alert, Ox3, JIEMNEZ Respiration: Resp=16 B/min, SpO2=97 % 11:44:38 FQ=344 bpm, NTJO=911/103 mmhg, SpO2=98.0 %, Resp=19 B/min, Pain=0, Yadiel=10, Pelayo=2 11:46:03 Bilateral groins prepped with 2% chlorhexidine, and with a 3 min. waiting time. 11:46:07 paged 11:47:03 HEPARIN DISCONTINUED IN PTS ROOM AT 11:15AM 11:47:45 Pressure channel 1 zeroed. 11:49:08 OC=723 bpm, FRPY=962/99 mmhg, SpO2=98.0 %, Resp=25 B/min, Pain=0, Yadiel=10, Pelayo=2 11:52:06 MD arrived. 11:52:50 Patient arrived on 50 mcg FENTANYL given by Maryjo Talbot, RN via Peripheral IV. 11:54:09 KT=678 bpm, UZAI=692/95 mmhg, SpO2=99.0 %, Resp=21 B/min, Pain=0, Yadiel=10, Pelayo=2 Time Out. Correct patient, correct procedure,correct physician, ,power injector loaded with con trast with surgical team 11:55:17 present. Time Out Concurred by MD, individual staff and QUALITY CONTROL MANAGER in procedure 11:55:31 Case Start 11:55:38 Verbal Stimulation=2 Physical Stimulation=2 Airway=2 Respiration=2 TOTAL=8. (0=absent, 1=li mited, 2=present) 11:56:06 Case Start 11:56:26 20 mL 1% XYLOCAINE given by Yenyn Negrete in Right Groin via Subcutaneous. 11:59:04 Access site was Right Femoral Artery. 11:59:10 WT=917 bpm, BUPZ=153/95 mmhg, ZnM7=046.0 %, Resp=19 B/min, Pain=0, Yadiel=10, Pelayo=2 11:59:10 A WIRE, 3MMJ .035 180CM 180CM was inserted via Fem Art (right). 11:59:29 A SHEATH, FR4.5 PRELUDE 11CM FR 4.5 was advanced into the Fem Art (right) using the Percuta neous technique. 11:59:43 Activated Clotting Time Drawn Recorded Pressure: Ao, CL=275, Condition=Condition 1 11:59:54 (Aorta) Ao 166/86/119 12:00:23 An injection in the Fem Art (right) was made through the SHEATH, FR4.5 PRELUDE 11CM FR 4.5. A JL 4.0 INFINITI CATHETER FR 4 was advanced over a wire. OMNIPAQUE, 350 MG, 150ML 150ML was us ed for 12:01:09 injections. 12:02:26 The LCA was injected and visualized at various angles. OMNIPAQUE, 350 MG, 150ML 150ML used . 12:03:28 100 mcg NTG (IC) given in lab by Jorden Rolon RCIS(SLY) via Intra-coronary. 12:04:07 BI=052 bpm, CZNS=417/100 mmhg, VyF7=777.0 %, Resp=23 B/min, Pain=0, Yadiel=10, Pelayo=2 12:04:22 PT ARRIVED WITH NITRO PATCH ON RIGHT ANKLE 12:05:17 The LCA was injected and visualized at various angles. OMNIPAQUE, 350 MG, 150ML 150ML used . After removing the current catheter a 3DRC INFINITI CATHETER FR 4 was advanced over a WIRE, 3MM J .035 180CM 12:08:11 180CM. 12:09:08 NF=893 bpm, CXSC=580/93 mmhg, SpO2=98.0 %, Resp=19 B/min, Pain=0, Yadiel=10, Pelayo=2 12:12:40 The RCA was injected and visualized at various angles. OMNIPAQUE, 350 MG, 150ML 150ML used . 12:13:50 The TSE was injected and visualized at various angles. OMNIPAQUE, 350 MG, 150ML 150ML used . 12:14:07 CD=350 bpm, OEIZ=992/96 mmhg, SpO2=99 %, Resp=18 B/min, Pain=0, Yadiel=10, Pelayo=2 After removing the current catheter a PIGTAIL ANG. INFINITI CATHETER FR 4 was advanced over a WIRE, 3MMJ .035 12:14:44 180CM 180CM. 12:15:54 The LV was injected at 10 cc/sec for a total of 30. OMNIPAQUE, 350 MG, 150ML 150ML used. Recorded Pressure: LV, HR=99, Condition=Condition 1 12:16:39 (Left Ventricle) LV 157/11/19 Recorded Pressure: LV, Ao, JN=818, Condition=Condition 1 12:17:51 (Left Ventricle) LV 158/11/21, (Aorta) Ao 156/88/120 12:18:20 Catheter was removed Assessment: Final Case, UO=065 BPM, Rhythm=REG, Chest Pain=0, Edema=None, Color=Normal, Skin = Warm Right Pulses: Marquez Ped=3, Femoral=2 Left Pulses: Marquez Ped=3, Femoral=2 12:18:31 Lower Right Extremities: Color=Normal Lower Left Extremities: Color=Normal Neurological: State=Alert, Ox3, JIMENEZ Respiration: Resp=20 B/min, PnV2=736 % 12:19:10 YF=541 bpm, WOIW=692/96 mmhg, GeE4=405.0 %, Resp=14 B/min, Pain=0, Yadiel=10, Pelayo=2 12:19:53 Case End 12:24:32 Sheath removed; pressure applied to access site. JORDEN ROLON 12:24:52 WQ=796 bpm, TQJV=222/105 mmhg, VnU6=380.0 %, Resp=22 B/min, Pain=0, Yadiel=10, Pelayo=2 12:29:14 HR=94 bpm, CQHQ=954/95 mmhg, SpO2=97.0 %, Resp=16 B/min, Pain=0, Yadiel=10, Pelayo=2 12:33:29 Catheter(s) removed without difficulty 12:34:03 Sterile dressing applied to site 12:34:04 No case complications noted. 12:34:06 Cine recording checked. 12:34:09 Bedside Report will be given. 12:34:12 Contrast Scanned 12:34:13 HR=96 bpm, EHBH=550/96 mmhg, SpO2=99.0 %, Resp=16 B/min, Pain=0, Yadiel=10, Pelayo=2 12:34:16 A Left Heart Cath was performed. End Study - Contrast Media Used In Study Contrast Total Opened (mL) Total Used (mL) Total Wasted (mL) Omnipaque 110 110 0 End Study - Maximum Contrast Load Max Contrast Load (mL) 696.4 End Study - Radiation Exposure Fluoro Time (minutes) 3.6 End Study - Sheaths Sheaths Pulled By Sheath Hold Time (min) Jorden Rolon 20 End Study - Patient Disposition Complications Transferred To Interventional Outcome No Regular Bed No attempt made
[2017-02-17] MEDS ORDERED: MISC INFORMATION XX ONE (12:45)
--- NOTE | 2017-02-17 13:02 | MA ---
cc: JOSE ANTONIO HAYDEN MD DATE: 02/17/2017. PROCEDURES PERFORMED: Left heart catheterization, selective coronary angiography, left ventriculography, ASHLEY angiography. INDICATIONS FOR THE PROCEDURE: Unstable angina. DESCRIPTION OF THE PROCEDURE IN DETAIL: The patient gave informed consent. She was prepped in the usual sterile fashion. A subcutaneous injection of lidocaine was made in the right inguinal area. Access was achieved into the right femoral artery and a 4-American catheter was inserted. The angiogram was obtained through the sheath. A JL-4 and 3DRC were utilized to engage and left and right coronary arteries. Angiograms were obtained in multiple views and projections. The patient tolerated the procedure well. At the end of the case, the sheath was pulled. FINDINGS: 1. Left ventriculogram - this shows an ejection fraction of 60%. There are no focal wall motion abnormalities. 2. Left ventricular pressure 158/11 mmHg. 3. Aortic pressure 156/18 mmHg. CORONARY ANATOMY: 1. Left main - this is a long vessel that has a distal 80% to 90% stenosis. It gives rise to the left anterior descending and circumflex. The left anterior descending has an ostial 90% stenosis and bifurcates quickly into the diagonal. This too has an ostial 90% and proximal 80% stenosis. It is a fairly large sized vessel. The remainder of the left anterior descending is moderate caliber and has only mild disease. It barely reaches the apex. 2. Circumflex - Some images do suggest an ostial 90% stenosis. It is a small nondominant vessel. 3. Right coronary artery - this is a hyper-dominant vessel that has an ostial / proximal 90% stenosis. 4. Left internal mammary - this vessel is widely patent. CONCLUSIONS: 1. Normal left ventricular function. 2. Severe multivessel disease. 3. CT surgery consultation for CABG. Jose Antonio Hayden M.D. TAM/ROSALINA /12:30 PM /12:52 PM
--- NOTE | 2017-02-17 17:24 | EKG ---
Date Performed: 02/16/2017 Time Performed: 18:12:40 PTAGE: 56 years EKG: Sinus tachycardia Poor R wave progression - probable normal variant Inferior T wave changes are nonspecific Borderline ECG Compared to prior tracing no significant change PREVIOUS TRACING : 02/16/2017 10.43 DOCTOR: Efe Olivarez Interpretating Date/Time 02/17/2017 17:20:16
--- NOTE | 2017-02-17 17:38 | EKG ---
Date Performed: 02/16/2017 Time Performed: 10:43:01 PTAGE: 56 years EKG: SINUS TACHYCARDIA New Q waves in the inferior leads Diffuse nonspecific ST-T wave changes P oor R wave progession in the anterior precordium Clinical correlation is recommended ABNORMAL RHYTHM ECG PREVIOUS TRACING : 12/25/2003 19.29 DOCTOR: Efe Olivarez Interpretating Date/Time 02/17/2017 17:38:19
[2017-02-17] MEDS: ATORVASTATIN 80 MG TAB PO SCH (21:21)
[2017-02-17] MEDS: CARVEDILOL 3.125 MG TAB PO SCH (21:21)
[2017-02-18] VITALS (30 sets, daily range): BP systolic 107–142; BP diastolic 58–86; PULSE 65–114; RESP 16–18; TEMP 98.6–98.7; O2SAT 97–99
[2017-02-18] MEDS: INSULIN ASPART SUPPLEMENTAL SCALE SQ SCH ×4 (05:49→22:13)
[2017-02-18] MEDS: NITROGLYCERIN 2% OINT 1 GM PACKET TOPICAL SCH ×3 (05:49→22:09)
[2017-02-18] MEDS: ACETAMINOPHEN/HYDROcodone 325 MG/5 MG TAB PO PRN (05:53)
[2017-02-18] MEDS: CARVEDILOL 3.125 MG TAB PO SCH (07:41)
[2017-02-18] MEDS: DOCUSATE SODIUM 50 MG/SENNA 8.6 MG TAB PO SCH ×2 (07:41→19:34)
[2017-02-18] MEDS: amLODIPine BESYLATE 5 MG TAB PO SCH (07:42)
[2017-02-18] MEDS: SODIUM CHLOR 0.9% 1000 ML INJ 1,000 ML IV SCH (07:42)
[2017-02-18] MEDS: SODIUM CHLORIDE 0.9% FLUSH 10 ML FLUSH IV FLUSH SCH ×2 (07:42→21:00)
[2017-02-18] MEDS ORDERED: LISINOPRIL 20 MG TAB PO SCH (09:00)
--- NOTE | 2017-02-18 10:47 | PD.CARD.PN ---
Subjective Subjective Remarks Pt without complaints, reports twing of CP this am with bending over Objective Medications Current Medications Medications (Trade) Dose Ordered Sig/Telma Route Start Time Stop Time Status Last Admin (NS 1000 ml Inj) 1,000 ml @ 0 mls/hr Q7H9M IV 02/16/17 15:00 02/16/17 15:25 (NS Flush) 2 ml UNSCH PRN IV FLUSH 02/16/17 14:15 (NS Flush) 2 ml BID IV FLUSH 02/16/17 21:00 02/18/17 07:42 (Tylenol) 650 mg Q4H PRN PO 02/16/17 14:15 02/16/17 15:30 (Zofran Inj) 4 mg Q6H PRN IVP 02/16/17 14:15 (Ambien) 5 mg HS PRN PO 02/16/17 14:15 (Mary Beth-Colace) 1 tab BID PO 02/16/17 21:00 02/18/17 07:41 (Milk Of Magnesia Liq) 30 ml Q12H PRN PO 02/16/17 14:15 (Senokot) 17.2 mg Q12H PRN PO 02/16/17 14:15 (Dulcolax Supp) 10 mg DAILY PRN RECTAL 02/16/17 14:15 (Lactulose Liq) 30 ml DAILY PRN PO 02/16/17 14:15 (D50w (Vial) Inj) 50 ml UNSCH PRN IV 02/16/17 14:15 (Glucagon Inj) 1 mg UNSCH PRN OTHER 02/16/17 14:15 (Motrin) 400 mg Q6H PRN PO 02/16/17 14:15 ([place] 5-325 Mg) 1 tab Q4H PRN PO 02/16/17 14:15 02/18/17 05:53 ([place] 10-325 Mg) 1 tab Q4H PRN PO 02/16/17 14:15 (Morphine Inj) 4 mg Q3H PRN IV 02/16/17 14:15 02/16/17 23:11 (Narcan Inj) 0.4 mg UNSCH PRN IV 02/16/17 14:15 Nitroglycerin 1 inch 1 inch Q8HR TOPICAL 02/16/17 22:00 02/18/17 05:49 (NS 1000 ml Inj) 1,000 ml @ 30 mls/hr Q24H IV 02/17/17 09:03 02/22/17 09:02 (Norvasc) 2.5 mg DAILY PO 02/18/17 09:00 02/18/17 07:42 (Lipitor) 80 mg HS PO 02/17/17 21:00 02/17/17 21:21 (Coreg) 3.125 mg Q12HR PO 02/17/17 21:00 02/18/17 07:41 Vital Signs / I&O Vital Signs Date Time Temp Pulse Resp B/P Pulse Ox O2 Delivery O2 Flow Rate FiO2 02/18/17 10:12 97 02/18/17 09:02 92 02/18/17 08:08 95 02/18/17 07:04 92 02/18/17 07:00 98.6 94 18 134/81 97 02/18/17 06:00 94 02/18/17 05:00 80 02/18/17 04:00 88 02/18/17 03:12 102 16 125/86 98 02/18/17 03:00 94 02/18/17 02:00 90 02/18/17 01:00 94 02/18/17 00:00 96 02/17/17 23:52 103 18 138/81 98 02/17/17 23:00 98 02/17/17 22:00 98 02/17/17 21:00 100 02/17/17 20:00 106 02/17/17 20:00 99 21 02/17/17 19:15 99.1 110 18 137/77 99 02/17/17 19:00 108 02/17/17 18:14 112 02/17/17 17:12 108 02/17/17 16:16 108 02/17/17 15:02 101 18 136/73 99 02/17/17 15:02 107 02/17/17 14:31 92 02/17/17 13:19 89 02/17/17 11:02 88 02/17/17 11:00 98.0 98 17 129/50 99 I/O 02/17/17 02/17/17 02/17/17 02/18/17 02/18/17 02/18/17 07:00 15:00 23:00 07:00 15:00 23:00 Intake Total 612 ml 1550 ml 300 ml Output Total 400 ml 900 ml Balance 212 ml 1550 ml -600 ml Intake Oral 480 ml 500 ml 300 ml IV Total 132 ml 1050 ml Output Urine Total 400 ml 900 ml # Voids 3 # Bowel Movements 0 1 0 Physical Exam GENERAL: Well developed, well nourished. No acute distress. HEENT: Jugular venous pressure is normal. CHEST: Lungs clear to auscultation bilaterally. Unlabored respiratory effort. CARDIAC: Regular rate and rhythm without S3, S4, or murmur. ABDOMEN: Soft, nontender, no hepatosplenomegaly. Bowel sounds present. EXTREMITIES: No clubbing, cyanosis, or edema. Imaging Last 72 hours Impressions Chest X-Ray 02/16/17 1048 Signed Impressions: Service Date/Time: Thursday, February 16, 2017 10:49 - CONCLUSION: Minimal atelectasis otherwise no evidence of acute process. Srinath Malloy MD Assessment and Plan Assessment and Plan Angina- multivessel disease, awaiting CABG -restart heparin -aspirin BB statin HTN- good, increase coreg lipids- statin Yenny Negrete MD Feb 18, 2017 10:47
--- NOTE | 2017-02-18 10:50 | PD.CONS ---
History of Present Illness Service CT Surgery Consult Requested By Dr. Negrete Reason for Consult NSTEMI, CAD Primary Care Physician Stephen Perez MD Diagnoses: (1) NSTEMI (non-ST elevated myocardial infarction) (2) CAD (coronary artery disease) History of Present Illness 56 y/o female presents with several week h/o crescendo angina and an abnormal stress test. She experienced severe chest pain at rest with diaphoresis, nausea , dyspnea and presented to the ED. She ruled in for NSTEMI and underwent LHC yesterday which shows multivessel CAD with an EF of 50%. She is being considered for CABG. Review of Systems Constitutional: COMPLAINS OF: Fatigue, DENIES: Diaphoretic episodes, Fever, Weight gain, Weight loss, Chills, Dizziness, Change in appetite, Night Sweats Endocrine: DENIES: Abnorml menstrual pattern, Heat/cold intolerance, Polydipsia , Polyuria, Polyphagia Eyes: DENIES: Blurred vision, Diplopia, Eye inflammation, Eye pain, Vision loss , Photosensitivity, Double Vision Ears, nose, mouth, throat: DENIES: Tinnitus, Hearing loss, Vertigo, Nasal discharge, Oral lesions, Throat pain, Hoarseness, Ear Pain, Running Nose, Epistaxis, Sinus Pain, Toothache, Odynophagia Respiratory: DENIES: Apneas, Cough, Snoring, Wheezing, Hemoptysis, Sputum production, Shortness of breath Cardiovascular: COMPLAINS OF: Chest pain, Dyspnea on Exertion, Lower Extremity Edema, DENIES: Palpitations, Syncope, PND, Orthopnea, Claudication Gastrointestinal: DENIES: Abdominal pain, Black stools, Bloody stools, Constipation, Diarrhea, Nausea, Vomiting, Difficulty Swallowing, Anorexia Genitourinary: DENIES: Abnormal vaginal bleeding, Dysmenorrhea, Dyspareunia, Sexual dysfunction, Urinary frequency, Urinary incontinence, Urgency, Hematuria , Dysuria, Nocturia, Vaginal discharge Musculoskeletal: DENIES: Joint pain, Muscle aches, Stiffness, Joint Swelling, Back pain, Neck pain Integumentary: DENIES: Abnormal pigmentation, Pruritus, Rash, Nail changes, Breast masses, Breast skin changes, Nipple discharge Hematologic/lymphatic: DENIES: Bruising, Lymphadenopathy Immunologic/allergic: DENIES: Eczema, Urticaria Neurologic: DENIES: Abnormal gait, Headache, Localized weakness, Paresthesias, Seizures, Speech Problems, Tremor, Poor Balance Psychiatric: DENIES: Anxiety, Confusion, Mood changes, Depression, Hallucinations, Agitation, Suicidal Ideation, Homicidal Ideation, Delusions Past Family Social History Allergies: Coded Allergies: No Known Allergies (Verified , 12/27/16) Past Medical History HTN DM type 2 (on glipizide) Past Surgical History Total hysterectomy Reported Medications Reported Meds & Active Scripts Active Nitroglycerin SL (Nitroglycerin) 0.4 Mg Subl 0.4 Mg SL DIRECTED PRN ONE TABLET UNDER THE TONGUE NEEDED FOR CHEST PAIN, MAY REPEAT EVERY FIVE MINUTES FOR A TOTAL OF 3 DOSES OR CALL 911 IF NO RELIEF Reported Aspir-81 (Aspirin) 81 Mg Tabdr Lisinopril 40 Mg Tab 40 Mg PO DAILY Glipizide 10 Mg Tab 10 Mg PO DAILY Take 30 minutes before a meal Family History DM, HTN, CAD Social History Denies tobacco, ETOH Remote drug use Physical Exam Vital Signs Vital Signs Date Time Temp Pulse Resp B/P Pulse Ox O2 Delivery O2 Flow Rate FiO2 02/18/17 10:12 97 02/18/17 09:02 92 02/18/17 08:08 95 02/18/17 07:04 92 02/18/17 07:00 98.6 94 18 134/81 97 02/18/17 06:00 94 02/18/17 05:00 80 02/18/17 04:00 88 02/18/17 03:12 102 16 125/86 98 02/18/17 03:00 94 02/18/17 02:00 90 02/18/17 01:00 94 02/18/17 00:00 96 02/17/17 23:52 103 18 138/81 98 02/17/17 23:00 98 02/17/17 22:00 98 02/17/17 21:00 100 02/17/17 20:00 106 02/17/17 20:00 99 21 02/17/17 19:15 99.1 110 18 137/77 99 02/17/17 19:00 108 02/17/17 18:14 112 02/17/17 17:12 108 02/17/17 16:16 108 02/17/17 15:02 101 18 136/73 99 02/17/17 15:02 107 02/17/17 14:31 92 02/17/17 13:19 89 02/17/17 11:02 88 02/17/17 11:00 98.0 98 17 129/50 99 Physical Exam GENERAL: This is a morbidly obese patient, in no apparent distress. SKIN: No rashes, ecchymoses or lesions. Cool and dry. HEAD: Atraumatic. Normocephalic. No temporal or scalp tenderness. EYES: Pupils equal round and reactive. Extraocular motions intact. No scleral icterus. No injection or drainage. ENT: Nose without bleeding, purulent drainage or septal hematoma. Throat without erythema, tonsillar hypertrophy or exudate. Uvula midline. Airway patent. NECK: Trachea midline. No JVD or lymphadenopathy. Supple, nontender, no meningeal signs. CARDIOVASCULAR: Regular rate and rhythm without murmurs, gallops, or rubs. RESPIRATORY: Clear to auscultation. Breath sounds equal bilaterally. No wheezes , rales, or rhonchi. GASTROINTESTINAL: Abdomen soft, non-tender, nondistended. No hepato-splenomegaly , or palpable masses. No guarding. MUSCULOSKELETAL: Extremities without clubbing, cyanosis, or edema. No joint tenderness, effusion, or edema noted. No calf tenderness. Negative Homans sign bilaterally. NEUROLOGICAL: Awake and alert. Cranial nerves II through XII intact. Motor and sensory grossly within normal limits. Five out of 5 muscle strength in all muscle groups. Normal speech. Result Diagram: 02/17/1731402/17/175 Imaging Last Impressions Chest X-Ray 02/16/17 1048 Signed Impressions: Service Date/Time: Thursday, February 16, 2017 10:49 - CONCLUSION: Minimal atelectasis otherwise no evidence of acute process. Srinath Malloy MD Course Patient is stable s/p LHC and NSTEMI. Denies chest pain currently. Assessment and Plan Problem List: (1) BMI 40.0-44.9, adult Status: Acute (2) NSTEMI (non-ST elevated myocardial infarction) Status: Acute (3) CAD (coronary artery disease) Status: Acute (4) Diabetes mellitus type 2 in obese Status: Acute Plan: Check HbA1C Assessment and Plan 56y/o female presents with crescendo angina and NSTEMI. She was found to have multivessel CAD with an EF ~50%. CABG is recommended. Risk of surgery higher secondary to body habitus and comorbidities. I discussed the risks and benefits of CABG with her and she agrees to proceed. Risk Model and Variables - STS Adult Cardiac Surgery Database Version 2.81 RISK SCORES About the STS Risk Calculator Procedure: CAB Only Risk of Mortality: 0.43% Morbidity or Mortality: 9.031% Long Length of Stay: 2.803% Short Length of Stay: 54.064% Permanent Stroke: 0.922% Prolonged Ventilation: 6.491% DSW Infection: 0.32% Renal Failure: 1.191% Reoperation: 3.078% Problem Qualifiers (1) CAD (coronary artery disease): Qualified Code: I25.110 - Coronary artery disease involving [place] coronary artery of [place] heart with unstable angina pectoris Lluvia Perry MD Feb 18, 2017 10:50
--- NOTE | 2017-02-18 10:53 | HHI.FPPN ---
Subjective Remarks Patient seen and examined this morning. States she had a short period of chest tightness last night when she tried to greens picker a pen off the floor. The tightness went away, and was similar to her previous episodes. She also notes a slight headache which she attributes to her nitro patch. It was moved to her leg , which improved the severity of the headache. Her knowledge of her current situation and future plans were discussed. At this time the patient appears well informed of her catheter results and the necessity of cardiac surgery. No other complaints of nausea, vomiting, fever, chills, shortness of breath, abdominal pain, change in bowel habits, change in urinary habits. (Jerry Griffith MD R1) Objective Vitals Vital Signs Date Time Temp Pulse Resp B/P Pulse Ox O2 Delivery O2 Flow Rate FiO2 02/18/17 10:12 97 02/18/17 09:02 92 02/18/17 08:08 95 02/18/17 07:04 92 02/18/17 07:00 98.6 94 18 134/81 97 02/18/17 06:00 94 02/18/17 05:00 80 02/18/17 04:00 88 02/18/17 03:12 102 16 125/86 98 02/18/17 03:00 94 02/18/17 02:00 90 02/18/17 01:00 94 02/18/17 00:00 96 02/17/17 23:52 103 18 138/81 98 02/17/17 23:00 98 02/17/17 22:00 98 02/17/17 21:00 100 02/17/17 20:00 106 02/17/17 20:00 99 21 02/17/17 19:15 99.1 110 18 137/77 99 02/17/17 19:00 108 02/17/17 18:14 112 02/17/17 17:12 108 02/17/17 16:16 108 02/17/17 15:02 101 18 136/73 99 02/17/17 15:02 107 02/17/17 14:31 92 02/17/17 13:19 89 02/17/17 11:02 88 02/17/17 11:00 98.0 98 17 129/50 99 I/O 02/17/17 02/17/17 02/17/17 02/18/17 02/18/17 8/13/17 07:00 15:00 23:00 07:00 15:00 23:00 Intake Total 612 ml 1550 ml 300 ml Output Total 400 ml 900 ml Balance 212 ml 1550 ml -600 ml Intake Oral 480 ml 500 ml 300 ml IV Total 132 ml 1050 ml Output Urine Total 400 ml 900 ml # Voids 3 # Bowel Movements 0 1 0 (Jerry Griffith MD R1) Result Diagram: 02/17/175 02/17/175 Imaging Last Impressions Chest X-Ray 02/16/17 1048 Signed Impressions: Service Date/Time: Thursday, February 16, 2017 10:49 - CONCLUSION: Minimal atelectasis otherwise no evidence of acute process. Srinath Malloy MD Cardiac Cath 02/17/17 - 90% occlusion of the circumflex, RCA, distal left main and 80-90% occlusion of the LAD. Objective Remarks GENERAL: Pleasant, laying in bed, no acute distress SKIN: Warm and dry. HEAD: Atraumatic. Normocephalic. EYES: Pupils equal and round. No scleral icterus. No injection or drainage. ENT: No nasal bleeding or discharge. Mucous membranes pink and moist. NECK: Trachea midline. No JVD. CARDIOVASCULAR: Regular rate and rhythm. Normal S1/S2 RESPIRATORY: No accessory muscle use. Clear to auscultation. Breath sounds equal bilaterally. GASTROINTESTINAL: Abdomen soft, non-tender, nondistended. Hepatic and splenic margins not palpable. MUSCULOSKELETAL: Extremities without clubbing, cyanosis, or edema. No obvious deformities. NEUROLOGICAL: Awake and alert. No obvious cranial nerve deficits. Motor grossly within normal limits. Five out of 5 muscle strength in the arms and legs. Normal speech. PSYCHIATRIC: Appropriate mood and affect; insight and judgment normal. Procedures Cardiac catheterization 02/17/17 Medications and IVs Current Medications Medications (Trade) Dose Ordered Sig/Telma Route Start Time Stop Time Status Last Admin (NS 1000 ml Inj) 1,000 ml @ 0 mls/hr Q7H9M IV 02/16/17 15:00 02/16/17 15:25 (NS Flush) 2 ml UNSCH PRN IV FLUSH 02/16/17 14:15 (NS Flush) 2 ml BID IV FLUSH 02/16/17 21:00 02/18/17 07:42 (Tylenol) 650 mg Q4H PRN PO 02/16/17 14:15 02/16/17 15:30 (Zofran Inj) 4 mg Q6H PRN IVP 02/16/17 14:15 (Ambien) 5 mg HS PRN PO 02/16/17 14:15 ([place]-Colace) 1 tab BID PO 02/16/17 21:00 02/18/17 07:41 (Milk Of Magnesia Liq) 30 ml Q12H PRN PO 02/16/17 14:15 (Senokot) 17.2 mg Q12H PRN PO 02/16/17 14:15 (Dulcolax Supp) 10 mg DAILY PRN RECTAL 02/16/17 14:15 (Lactulose Liq) 30 ml DAILY PRN PO 02/16/17 14:15 (D50w (Vial) Inj) 50 ml UNSCH PRN IV 02/16/17 14:15 (Glucagon Inj) 1 mg UNSCH PRN OTHER 02/16/17 14:15 (Motrin) 400 mg Q6H PRN PO 02/16/17 14:15 ([place] 5-325 Mg) 1 tab Q4H PRN PO 02/16/17 14:15 02/18/17 05:53 ([place] 10-325 Mg) 1 tab Q4H PRN PO 02/16/17 14:15 (Morphine Inj) 4 mg Q3H PRN IV 02/16/17 14:15 02/16/17 23:11 (Narcan Inj) 0.4 mg UNSCH PRN IV 02/16/17 14:15 Nitroglycerin 1 inch 1 inch Q8HR TOPICAL 02/16/17 22:00 02/18/17 05:49 (NS 1000 ml Inj) 1,000 ml @ 30 mls/hr Q24H IV 02/17/17 09:03 02/22/17 09:02 (Norvasc) 2.5 mg DAILY PO 02/18/17 09:00 02/18/17 07:42 (Lipitor) 80 mg HS PO 02/17/17 21:00 02/17/17 21:21 (Coreg) 3.125 mg Q12HR PO 02/17/17 21:00 02/18/17 07:41 (Jerry Griffith MD R1) A/P Assessment and Plan 56 year old female with DM2 and HTN who came into the ED complaining of chest tightness. She has had chest tightness for 3 month, had an abnormal nuclear stress test and had a cardiac catheterization with stent scheduled for 02/16/17 which was cancelled when she changed cardiologists. Continues to have severe chest tightness and shortness of breath during minimal physical activity upon admission. Cardiac Cath 02/17/17 - 90% occlusion of the circumflex, RCA, distal left main and 80-90% occlusion of the LAD. Discharge Planning Need to evaluate s/p cath, cardio clearance (Jerry Griffith MD R1) Attending Attestation Patient seen and examined. Case reviewed and discussed with the resident team. Agree with plan of care as discussed with me and documented in the resident note. (Reyes Al MD) Problem List: (1) Chest pain, atypical Status: Acute Plan: 3 months of chest pain, worsening, had a scheduled cath with stent on which was cancelled after changing cardiologists. -Consult cardiology, appreciate recommendations -Cardiac Cath 02/17/17 - 90% occlusion of the circumflex, RCA, distal left main and 80-90% occlusion of the LAD. - CT surgery consulted for CABG -Nitro Q8 prn chest pain -Troponin >.2 at admission, uptrending .05, then .08 - ASA - New Era/morphine PRN pain (2) Diabetes mellitus type 2 in obese Status: Acute Plan: Held home medications - Low dose sliding scale insulin (3) Benign hypertension Status: Chronic Plan: Continue home meds -Lisinopril 40mg daily (4) FEN Status: Acute Plan: Fluids -Maintenance NS 140 Electrolytes -Monitor and correct as needed Nutrition -NPO for possible cath, F/U cardiac recommendations PPX -SCDs (likely to have catheterization soon) - Zofran prn (Jerry Griffith MD R1) Jerry Griffith MD R1 Feb 18, 2017 10:53 Reyes Al MD Feb 18, 2017 15:28
[2017-02-18] MEDS ORDERED: METOPROLOL TARTRATE 25 MG TAB PO SCH (11:15)
[2017-02-18] MEDS ORDERED: PAPAVERINE INJ 60 MG, NITROGLYCERIN INJ 100 MCG, DILTIAZEM INJ 100 MG in SODIUM CHLORID... IRRIGATION SCH (11:15)
[2017-02-18] MEDS ORDERED: ceFAZolin 2 GM PREMIX 50 ML IV SCH (11:15)
[2017-02-18] MEDS ORDERED: CEFAZOLIN INJ 500 MG in SODIUM CHLORIDE 0.9% IRR BTL 500 ML IRRIGATION SCH (11:15)
[2017-02-18] MEDS ORDERED: INSULIN REGULAR (IV INFUSION) 100 UNITS in SODIUM CHLORIDE 0.9% INJ 100 ML IV SCH (11:15)
[2017-02-18] MEDS ORDERED: HEPARIN SODIUM - IV 10,000 UNITS/10 ML VIAL IV ONE (11:15)
[2017-02-18] MEDS ORDERED: CHLORHEXIDINE GLUCONATE 4% SOLN 120 ML BTL TOPICAL SCH (11:15)
[2017-02-18] MEDS: MUPIROCIN 2% OINT 1 APPLIC/GM SYR EACH NARE SCH ×2 (13:04→19:34)
[2017-02-18] MEDS: HEPARIN-D5W 25,000 U/250 ML 250 ML IV SCH (13:09)
[2017-02-18 14:11] LABS: AUTOMATED NEUTROPHIL # 5.3 TH/MM3 (1.8-7.7); BASOPHIL # 0.1 TH/MM3 (0-0.2); BASOPHIL % 0.6 % (0.0-2.0); EOSINOPHIL # 0.2 TH/MM3 (0-0.4); EOSINOPHIL % 1.9 % (0.0-4.0); HEMATOCRIT 41.2 % (35.0-46.0); HEMO FLAGS DIFF FINAL; LYMPH % 37.8 % (9.0-44.0); LYMPHOCYTE # 3.8 TH/MM3 (1.0-4.8); MEAN CELL VOLUME 79.8 FL (80.0-100.0); MEAN CORPUSCULAR HEMOGLOBIN 26.2 PG (27.0-34.0); MEAN CORPUSCULAR HGB CONC 32.8 % (32.0-36.0); MONO % 7.8 % (0.0-8.0); NEUT % 51.9 % (16.0-70.0); PLATELET COUNT 239 TH/MM3 (150-450); RED BLOOD COUNT 5.17 MIL/MM3 (4.00-5.30); RED CELL DISTRIBUTION WIDTH 14.5 % (11.6-17.2); WHITE BLOOD COUNT 10.2 TH/MM3 (4.0-11.0)
[2017-02-18 14:17] LABS: PROTHROMBIN TIME - PATIENT 10.9 SEC (9.8-11.6)
[2017-02-18 14:29] LABS: ALKALINE PHOSPHATASE 119 U/L (45-117); ALT (GPT) 36 U/L (10-53); ANION GAP 8 MEQ/L (5-15); AST (GOT) 19 U/L (15-37); BICARBONATE 27.4 MEQ/L (21.0-32.0); BLOOD UREA NITROGEN 13 MG/DL (7-18); CHLORIDE 101 MEQ/L (98-107); GLOMERULAR FILTRATION RATE 80 ML/MIN (>89); POTASSIUM 4.3 MEQ/L (3.5-5.1); SODIUM (NA) 136 MEQ/L (136-145); TOTAL BILIRUBIN ADULT 0.4 MG/DL (0.2-1.0)
[2017-02-18 17:14] LABS: BLOOD, URINE NEG (NEG); COMMENT (UR) CULT NOT INDICATED; CULTURE IF INDICATED CULT NOT INDICATED; GLUCOSE,URINE 1000 mg/dL (NEG); KETONE, URINE NEG (NEG); MUCUS URINE FEW /lpf (OCC); NITRITE,URINE NEG (NEG); PH, URINE 5.5 (5.0-8.5); URINE COLOR YELLOW (YELLW/STRAW)
[2017-02-18] MEDS ORDERED: HEPARIN SODIUM - IV 10,000 UNITS/10 ML VIAL IV PRN (17:15)
--- NOTE | 2017-02-18 19:21 | RADRPT ---
EXAM DATE/TIME: 02/18/2017 18:05 [facility] COMPARISON: No previous studies available for comparison. INDICATIONS : Pre-op cardiac surgery. MEDICAL HISTORY : Hypercholesterolemia. Hypertension. Myocardial infarction. Diabetes. Coronary artery disease. SURGICAL HISTORY : Hysterectomy. ENCOUNTER: Initial ACUITY: 1 day PAIN SCORE: 0/10 LOCATION: Bilateral neck. PEAK SYSTOLIC VELOCITIES (cm/sec): ICA/CCA RATIO: Right: 1.0 Left: 1.1 ICA: Right: 96 Left: 95 CCA: Right: 100 Left: 89 ECA: Right: 172 Left: 100 VERTEBRAL: Right: 64 antegrade Left: 67 antegrade Elevated flow velocities and ICA/CCA ratios have been found to correlate with increased degrees of vessel stenosis, calculated as percentage of diameter relative to a normal segment of distal ICA/CCA FINDINGS: RIGHT CAROTID: No significant stenosis is visualized. The waveforms are within normal limits. LEFT CAROTID: Mild calcified plaque in the distal common carotid artery and carotid bulb. VERTEBRAL ARTERIES: Antegrade flow is seen in both vertebral arteries. MISCELLANEOUS: None. CONCLUSION: No evidence of hemodynamically significant carotid stenosis. Omar Hogan MD on February 18, 2017 at 19:18 Board Certified Radiologist. This report was verified electronically.
[2017-02-18] MEDS: AMIODARONE 200 MG TAB PO SCH (19:33)
[2017-02-18] MEDS: ATORVASTATIN 80 MG TAB PO SCH (19:33)
[2017-02-18] MEDS: CARVEDILOL 6.25 MG TAB PO SCH (19:33)
--- NOTE | 2017-02-18 19:38 | RADRPT ---
EXAM DATE/TIME: 02/18/2017 17:29 [facility] COMPARISON: No previous studies available for comparison. INDICATIONS : Pre-op cardiac surgery. MEDICAL HISTORY : Hypercholesterolemia. Hypertension. Myocardial infarction. Diabetes. Coronary artery disease. SURGICAL HISTORY : Hysterectomy. ENCOUNTER: Initial ACUITY: 1 day PAIN SCORE: 0/10 LOCATION: Bilateral legs. TECHNIQUE: Venous ultrasound of the left and right leg was performed from the inguinal ligament to the proximal calf. Real-time, color Doppler and spectral tracing, compression and augmentation techniques were us ed. FINDINGS: RIGHT LEG: There is normal compressibility of the deep venous system from the inguinal region to the proximal ca lf. No echogenic clot is seen in the lumen of the common femoral, femoral, popliteal, and posterior tibial veins. There is a normal response of the venous system to proximal and distal augmentation an d respiration. LEFT LEG: There is normal compressibility of the deep venous system from the inguinal region to the proximal ca lf. No echogenic clot is seen in the lumen of the common femoral, femoral, popliteal, and posterior tibial veins. There is a normal response of the venous system to proximal and distal augmentation an d respiration. CONCLUSION: No evidence of lower extremity DVT on the right or left. Omar Hogan MD on February 18, 2017 at 19:36 Board Certified Radiologist. This report was verified electronically.
--- NOTE | 2017-02-18 19:39 | RADRPT ---
EXAM DATE/TIME: 02/18/2017 17:42 [facility] COMPARISON: No previous studies available for comparison. INDICATIONS : Pre-op cardiac surgery. MEDICAL HISTORY : Hypercholesterolemia. Hypertension. Myocardial infarction. Diabetes. Coronary artery disease. SURGICAL HISTORY : Hysterectomy. ENCOUNTER: Initial ACUITY: 1 day PAIN SCORE: 0/10 LOCATION: Bilateral legs. GREATER SAPHENOUS VEIN THIGH: PROXIMAL: Right 4 mm Left 5 mm MID: Right 4 mm Left 5 mm DISTAL: Right 3 mm Left 5 mm CALF: PROXIMAL: Right 3 mm Left 4 mm MID: Right 2 mm Left 3 mm DISTAL: Right 3 mm Left 3 mm FINDINGS: The venous system of the lower extremities are patent by color Doppler imaging. Measurements of the leg veins (in mm) are listed above. CONCLUSION: Within normal limits. Omar Hogan MD on February 18, 2017 at 19:37 Board Certified Radiologist. This report was verified electronically.
[2017-02-18 21:29] LABS: APTT (PATIENT) 36.2 SEC (24.3-30.1)
[2017-02-18] MEDS: HEPARIN SODIUM - IV 10,000 UNITS/10 ML VIAL IV PRN (22:27)
[2017-02-19] VITALS (27 sets, daily range): BP systolic 119–138; BP diastolic 68–92; PULSE 78–106; RESP 16–18; TEMP 97.3–98.5; O2SAT 92–99
[2017-02-19] MEDS: NITROGLYCERIN 2% OINT 1 GM PACKET TOPICAL SCH ×3 (06:20→22:05)
[2017-02-19] MEDS: INSULIN ASPART SUPPLEMENTAL SCALE SQ SCH ×4 (06:24→22:12)
[2017-02-19 06:57] LABS: APTT (PATIENT) 40.8 SEC (24.3-30.1)
--- NOTE | 2017-02-19 07:48 | PD.CARD.PN ---
Subjective Subjective Remarks Pt without complaints Objective Medications Current Medications Medications (Trade) Dose Ordered Sig/Telma Route Start Time Stop Time Status Last Admin (NS 1000 ml Inj) 1,000 ml @ 0 mls/hr Q7H9M IV 02/16/17 15:00 02/16/17 15:25 (NS Flush) 2 ml UNSCH PRN IV FLUSH 02/16/17 14:15 (NS Flush) 2 ml BID IV FLUSH 02/16/17 21:00 02/18/17 07:42 (Tylenol) 650 mg Q4H PRN PO 02/16/17 14:15 02/16/17 15:30 (Zofran Inj) 4 mg Q6H PRN IVP 02/16/17 14:15 (Ambien) 5 mg HS PRN PO 02/16/17 14:15 (Mary Beth-Colace) 1 tab BID PO 02/16/17 21:00 02/18/17 07:41 (Milk Of Magnesia Liq) 30 ml Q12H PRN PO 02/16/17 14:15 (Senokot) 17.2 mg Q12H PRN PO 02/16/17 14:15 (Dulcolax Supp) 10 mg DAILY PRN RECTAL 02/16/17 14:15 (Lactulose Liq) 30 ml DAILY PRN PO 02/16/17 14:15 (D50w (Vial) Inj) 50 ml UNSCH PRN IV 02/16/17 14:15 (Glucagon Inj) 1 mg UNSCH PRN OTHER 02/16/17 14:15 (Motrin) 400 mg Q6H PRN PO 02/16/17 14:15 ([place] 5-325 Mg) 1 tab Q4H PRN PO 02/16/17 14:15 02/18/17 05:53 ([place] 10-325 Mg) 1 tab Q4H PRN PO 02/16/17 14:15 (Morphine Inj) 4 mg Q3H PRN IV 02/16/17 14:15 02/16/17 23:11 (Narcan Inj) 0.4 mg UNSCH PRN IV 02/16/17 14:15 Nitroglycerin 1 inch 1 inch Q8HR TOPICAL 02/16/17 22:00 02/19/17 06:20 (NS 1000 ml Inj) 1,000 ml @ 30 mls/hr Q24H IV 02/17/17 09:03 02/22/17 09:02 (Norvasc) 2.5 mg DAILY PO 02/18/17 09:00 02/18/17 07:42 (Lipitor) 80 mg HS PO 02/17/17 21:00 02/18/17 19:33 (Coreg) 6.25 mg Q12HR PO 02/18/17 21:00 02/18/17 19:33 (Heparin Inj) 5,000 units UNSCH PRN IV 02/18/17 17:15 Heparin Sodium (Porcine) 2500 units 2,500 units UNSCH PRN IV 02/18/17 17:15 02/18/17 22:27 (Heparin-D5W Inj) 250 ml @ 0 mls/hr TITRATE IV 02/18/17 11:15 02/18/17 13:09 (Bactroban Nasal 2% Oint) 1 applic BID EACH NARE 02/18/17 11:15 02/23/17 11:14 02/18/17 19:34 (Cordarone) 400 mg Q12HR PO 02/18/17 21:00 02/18/17 19:33 Vital Signs / I&O Vital Signs Date Time Temp Pulse Resp B/P Pulse Ox O2 Delivery O2 Flow Rate FiO2 02/19/17 06:00 88 02/19/17 05:00 80 02/19/17 04:05 78 18 119/68 96 02/19/17 04:00 78 02/19/17 03:00 84 02/19/17 02:00 78 02/19/17 01:00 78 02/19/17 00:00 88 02/18/17 23:43 86 16 107/58 99 02/18/17 23:00 89 02/18/17 22:00 96 02/18/17 21:00 98 02/18/17 20:00 112 02/18/17 19:15 98.7 114 18 142/79 99 02/18/17 19:00 111 02/18/17 18:20 103 02/18/17 17:38 98.7 99 18 122/78 99 02/18/17 17:37 107 02/18/17 16:09 65 02/18/17 15:23 96 02/18/17 14:10 93 02/18/17 13:20 95 02/18/17 12:55 95 02/18/17 11:28 94 02/18/17 11:16 98.7 89 18 115/72 99 02/18/17 10:12 97 02/18/17 09:02 92 02/18/17 08:08 95 I/O 02/18/17 02/18/17 02/18/17 02/19/17 02/19/17 02/19/17 06:59 14:59 22:59 06:59 14:59 22:59 Intake Total 300 ml 1050 ml 400 ml Output Total 900 ml 1000 ml 800 ml Balance -600 ml 50 ml -400 ml Intake Oral 300 ml 1000 ml 400 ml IV Total 50 ml Output Urine Total 900 ml 1000 ml 800 ml # Bowel Movements 0 1 1 Physical Exam GENERAL: Well developed, well nourished. No acute distress. HEENT: Jugular venous pressure is normal. CHEST: Lungs clear to auscultation bilaterally. Unlabored respiratory effort. CARDIAC: Regular rate and rhythm without S3, S4, or murmur. ABDOMEN: Soft, nontender, no hepatosplenomegaly. Bowel sounds present. EXTREMITIES: No clubbing, cyanosis, or edema. Laboratory Laboratory Tests Test 02/18/17 02/18/17 02/18/17 02/18/17 11:30 12:50 15:31 16:40 Nasal Screen MRSA (PCR) MRSA NOT DETECTED White Blood Count 10.2 TH/MM3 Red Blood Count 5.17 MIL/MM3 Hemoglobin 13.5 GM/DL Hematocrit 41.2 % Mean Corpuscular Volume 79.8 FL Mean Corpuscular Hemoglobin 26.2 PG Mean Corpuscular Hemoglobin 32.8 % Concent Red Cell Distribution Width 14.5 % Platelet Count 239 TH/MM3 Mean Platelet Volume 9.0 FL Neutrophils (%) (Auto) 51.9 % Lymphocytes (%) (Auto) 37.8 % Monocytes (%) (Auto) 7.8 % Eosinophils (%) (Auto) 1.9 % Basophils (%) (Auto) 0.6 % Neutrophils # (Auto) 5.3 TH/MM3 Lymphocytes # (Auto) 3.8 TH/MM3 Monocytes # (Auto) 0.8 TH/MM3 Eosinophils # (Auto) 0.2 TH/MM3 Basophils # (Auto) 0.1 TH/MM3 CBC Comment DIFF FINAL Differential Comment Prothrombin Time 10.9 SEC Prothromb Time International 1.0 RATIO Ratio Activated Partial 28.0 SEC Thromboplast Time Sodium Level 136 MEQ/L Potassium Level 4.3 MEQ/L Chloride Level 101 MEQ/L Carbon Dioxide Level 27.4 MEQ/L Anion Gap 8 MEQ/L Blood Urea Nitrogen 13 MG/DL Creatinine 0.89 MG/DL Estimat Glomerular Filtration 80 ML/MIN Rate Random Glucose 236 MG/DL Calcium Level 9.1 MG/DL Total Bilirubin 0.4 MG/DL Aspartate Amino Transf 19 U/L (AST/SGOT) Alanine Aminotransferase 36 U/L (ALT/SGPT) Alkaline Phosphatase 119 U/L Total Protein 8.5 GM/DL Albumin 3.6 GM/DL Blood Type O POSITIVE O POSITIVE Antibody Screen NEGATIVE Crossmatch Leukocyte-Reduced Red Blood Cells Blood Bank Comment Urine Color YELLOW Urine Turbidity CLEAR Urine pH 5.5 Urine Specific [place] 1.019 Urine Protein NEG mg/dL Urine Glucose (UA) 1000 mg/dL Urine Ketones NEG mg/dL Urine Occult Blood NEG Urine Nitrite NEG Urine Bilirubin NEG Urine Urobilinogen LESS THAN 2.0 MG/DL Urine Leukocyte Esterase NEG Urine WBC 1 /hpf Urine Mucus FEW /lpf Microscopic Urinalysis Comment CULT NOT INDICATED Test 02/18/17 02/19/17 20:31 04:45 Activated Partial 36.2 SEC 40.8 SEC Thromboplast Time Assessment and Plan Assessment and Plan Angina- multivessel disease, awaiting CABG -on heparin -aspirin BB statin -asymptomatic, ok to ambulate HTN- good, lipids- statin Yenny Negrete MD Feb 19, 2017 07:48
[2017-02-19] MEDS: amLODIPine BESYLATE 5 MG TAB PO SCH (08:14)
[2017-02-19] MEDS: DOCUSATE SODIUM 50 MG/SENNA 8.6 MG TAB PO SCH ×2 (08:14→21:00)
[2017-02-19] MEDS: CARVEDILOL 6.25 MG TAB PO SCH ×2 (08:14→20:55)
[2017-02-19] MEDS: MUPIROCIN 2% OINT 1 APPLIC/GM SYR EACH NARE SCH ×2 (08:15→20:58)
[2017-02-19] MEDS: AMIODARONE 200 MG TAB PO SCH ×2 (08:15→20:56)
[2017-02-19] MEDS: SODIUM CHLORIDE 0.9% FLUSH 10 ML FLUSH IV FLUSH SCH ×2 (08:15→20:57)
[2017-02-19] MEDS: SODIUM CHLOR 0.9% 1000 ML INJ 1,000 ML IV SCH (09:03)
--- NOTE | 2017-02-19 09:49 | HHI.FPPN ---
Subjective Remarks Pt seen and examined this morning. No acute events overnight. Denies any complaints this morning. States she is pain free and is ready for surgery. CABG is scheduled for tomorrow. She denies any chest pain, shortness of breath, leg pain. (Gus Alarcon MD, R2) Objective Vitals Vital Signs Date Time Temp Pulse Resp B/P Pulse Ox O2 Delivery O2 Flow Rate FiO2 02/19/17 09:00 80 02/19/17 08:00 80 02/19/17 07:30 97.3 84 16 126/80 98 02/19/17 07:00 80 02/19/17 06:00 88 02/19/17 05:00 80 02/19/17 04:05 78 18 119/68 96 02/19/17 04:00 78 02/19/17 03:00 84 02/19/17 02:00 78 02/19/17 01:00 78 02/19/17 00:00 88 02/18/17 23:43 86 16 107/58 99 02/18/17 23:00 89 02/18/17 22:00 96 02/18/17 21:00 98 02/18/17 20:00 112 02/18/17 19:15 98.7 114 18 142/79 99 02/18/17 19:00 111 02/18/17 18:20 103 02/18/17 17:38 98.7 99 18 122/78 99 02/18/17 17:37 107 02/18/17 16:09 65 02/18/17 15:23 96 02/18/17 14:10 93 02/18/17 13:20 95 02/18/17 12:55 95 02/18/17 11:28 94 02/18/17 11:16 98.7 89 18 115/72 99 02/18/17 10:12 97 I/O 02/18/17 02/18/17 02/18/17 02/19/17 02/19/17 02/19/17 07:00 15:00 23:00 07:00 15:00 23:00 Intake Total 300 ml 1050 ml 400 ml Output Total 900 ml 1000 ml 800 ml Balance -600 ml 50 ml -400 ml Intake Oral 300 ml 1000 ml 400 ml IV Total 50 ml Output Urine Total 900 ml 1000 ml 800 ml # Bowel Movements 0 1 1 (Gus Alarcon MD, R2) Result Diagram: 02/18/17 1250 02/18/17 1250 Objective Remarks GENERAL: Pleasant, sitting in chair, no acute distress SKIN: Warm and dry. NECK: Trachea midline. No JVD. CARDIOVASCULAR: Regular rate and rhythm. Normal S1/S2 RESPIRATORY: No accessory muscle use. Clear to auscultation. Breath sounds equal bilaterally. GASTROINTESTINAL: Abdomen soft, non-tender, nondistended. Hepatic and splenic margins not palpable. MUSCULOSKELETAL: Extremities without clubbing, cyanosis, or edema. No obvious deformities. NEUROLOGICAL: Awake and alert. No obvious cranial nerve deficits. Normal speech. PSYCHIATRIC: Appropriate mood and affect; insight and judgment normal. Procedures Cardiac catheterization 02/17/17 (Gus Alarcon MD, R2) A/P Assessment and Plan 56 year old female with DM2 and HTN who came into the ED complaining of chest tightness. She has had chest tightness for 3 month, had an abnormal nuclear stress test and had a cardiac catheterization with stent scheduled for 02/16/17 which was cancelled when she changed cardiologists. Continues to have severe chest tightness and shortness of breath during minimal physical activity upon admission. Cardiac Cath 02/17/17 - 90% occlusion of the circumflex, RCA, distal left main and 80-90% occlusion of the LAD. Discharge Planning Pending CABG and recovery (Gus Alarcon MD, R2) Attending Attestation Patient seen and examined. Case reviewed and discussed with the resident team. Agree with plan of care as discussed with me and documented in the resident note. (Reyes Al MD) Problem List: (1) Chest pain, atypical Status: Acute Plan: 3 months of chest pain, worsening, had a scheduled cath with stent on which was cancelled after changing cardiologists. S/p cath, results below, now requiring CABG -Cardiology consulted-appreciate recommendations -Cardiac Cath 02/17/17 - 90% occlusion of the circumflex, RCA, distal left main and 80-90% occlusion of the LAD. -CT surgery consulted for CABG -CABG scheduled for 02/20 -Pre-op management per CTS -Heparin gtt -Nitro Q8 prn chest pain -ASA -[place]/morphine PRN pain -Coreg 6.25mg BID -Lipitor 80mg HS (2) Diabetes mellitus type 2 in obese Status: Acute Plan: Held home medications - Low dose sliding scale insulin (3) Benign hypertension Status: Chronic Plan: Continue home meds -Lisinopril 40mg daily (4) FEN Status: Acute Plan: Fluids: tolerating PO Electrolytes: Monitor and correct as needed Nutrition: NPO after midnight DVT ppx: Heparin gtt (Gus Alarcon MD, R2) Gus Alarcon MD, R2 Feb 19, 2017 09:49 Reyes Al MD Feb 19, 2017 10:57
--- NOTE | 2017-02-19 10:53 | PD.CAR.PN ---
CVT Progress Note Subjective/Hospital Course: 56/ black female presented to ED with chest pain / ruled in for NSTEMI, underwent heart cath showing multivessel disease/ LM 80-90% EF 50% . PMH: obesity BMI 42/ DM on oral glipizide, HTN scheduled for surgery in am , currently pain free Objective: GENERAL: SKIN: Warm and dry. HEAD: Normocephalic. EYES: No scleral icterus. No injection or drainage. NECK: Supple, trachea midline. No JVD or lymphadenopathy. CARDIOVASCULAR: Regular rate and rhythm without murmurs, gallops, or rubs. RESPIRATORY: Breath sounds equal bilaterally. No accessory muscle use. GASTROINTESTINAL: Abdomen soft, non-tender, nondistended. MUSCULOSKELETAL: No cyanosis, or edema. BACK: Nontender without obvious deformity. No CVA tenderness. Vital Signs Date Time Temp Pulse Resp B/P Pulse Ox O2 Delivery O2 Flow Rate FiO2 02/19/17 10:00 82 02/19/17 09:00 80 02/19/17 08:00 80 02/19/17 07:30 97.3 84 16 126/80 98 02/19/17 07:00 80 02/19/17 06:00 88 02/19/17 05:00 80 02/19/17 04:05 78 18 119/68 96 02/19/17 04:00 78 02/19/17 03:00 84 02/19/17 02:00 78 02/19/17 01:00 78 02/19/17 00:00 88 02/18/17 23:43 86 16 107/58 99 02/18/17 23:00 89 02/18/17 22:00 96 02/18/17 21:00 98 02/18/17 20:00 112 02/18/17 19:15 98.7 114 18 142/79 99 02/18/17 19:00 111 02/18/17 18:20 103 02/18/17 17:38 98.7 99 18 122/78 99 02/18/17 17:37 107 02/18/17 16:09 65 02/18/17 15:23 96 02/18/17 14:10 93 02/18/17 13:20 95 02/18/17 12:55 95 02/18/17 11:28 94 02/18/17 11:16 98.7 89 18 115/72 99 Labs: Laboratory Tests Test 02/19/17 04:45 Activated Partial 40.8 SEC Thromboplast Time (24.3-30.1) Result Diagram: 02/18/17 1250 02/18/17 1250 (1) CAD (coronary artery disease) Plan: on ASA, stain , BB for surgery in am 2nd case (2) NSTEMI (non-ST elevated myocardial infarction) (3) Obesity (4) Diabetes mellitus type 2 in obese (5) Benign hypertension Problem Qualifiers (1) CAD (coronary artery disease): Qualified Code: I25.110 - Coronary artery disease involving [place] coronary artery of [place] heart with unstable angina pectoris (2) Obesity: Concepcion Oquendo Feb 19, 2017 10:53
[2017-02-19] MEDS: HEPARIN-D5W 25,000 U/250 ML 250 ML IV SCH (11:54)
[2017-02-19] MEDS ORDERED: IOHEXOL 350 MG/ML 100 ML BTL (for Cath Lab) OTHER ONE (13:18)
[2017-02-19 15:59] LABS: APTT (PATIENT) 32.4 SEC (24.3-30.1)
[2017-02-19] MEDS: HEPARIN SODIUM - IV 10,000 UNITS/10 ML VIAL IV PRN (16:29)
[2017-02-19 16:44] LABS: HEMOGLOBIN A1a 1.2 %; HEMOGLOBIN A1b 2.6 %; HEMOGLOBIN Ao 77.2 %; HEMOGLOBIN LA1C 3.2 %; HEMOGLOBIN P3 4.8 %
--- NOTE | 2017-02-19 19:33 | ECHRPT ---
Indication: Chest pain, unspecified CONCLUSIONS Normal left ventricular size. Mild concentric left ventricular hypertrophy. The left ventricular systolic function is normal with an estimated ejection fraction in the range of 55-60%. No regional wall motion abnormalities are present. Mild thickening of the mitral valve leaflets. Aortic valve sclerosis is present. Trivial pulmonary valve regurgitation. BP: 115 / 72 HR: 93 Rhythm: Sinus MEASUREMENTS (Male / Female) Normal Values Technical Quality:Good 2D ECHO LV Diastolic Diameter PLAX 2.9 cm 4.2 - 5.9 / 3.9 - 5.3 cm LV Systolic Diameter PLAX 2.0 cm IVS Diastolic Thickness 1.2 cm 0.6 - 1.0 / 0.6 - 0.9 cm LVPW Diastolic Thickness 1.2 cm 0.6 - 1.0 / 0.6 - 0.9 cm LV Relative Wall Thickness 0.9 RV Internal Dim ED PLAX 2.6 cm LVOT Diameter 1.8 cm LA Systolic Diameter LX 3.6 cm 3.0 - 4.0 / 2.7 - 3.8 cm M-MODE Aortic Root Diameter MM 2.7 cm AV Cusp Separation MM 1.6 cm DOPPLER AV Peak Velocity 143.0 cm/s AV Peak Gradient 8.2 mmHg LVOT Peak Velocity 110.0 cm/s LVOT Peak Gradient 4.8 mmHg AV Area Cont Eq pk 2.0 cm MV Area PHT 2.7 cm Mitral E Point Velocity 67.1 cm/s Mitral A Point Velocity 90.3 cm/s Mitral E to A Ratio 0.7 LV E' Lateral Velocity 11.0 cm/s Mitral E to LV E' Lateral Ratio 6.1 LV E' Septal Velocity 5.9 cm/s Mitral E to LV E' Septal Ratio 11.5 TV Peak Velocity 228.0 cm/s PV Peak Velocity 109.0 cm/s PV Peak Gradient 4.8 mmHg FINDINGS LEFT VENTRICLE Normal left ventricular size. Mild concentric left ventricular hypertrophy. The left ventricular systolic function is normal with an estimated ejection fraction in the range of 55-60%. No regional wall motion abnormalities are present. RIGHT VENTRICLE Normal right ventricular size and systolic function. LEFT ATRIUM The left atrial size is normal. RIGHT ATRIUM The right atrial size is normal. ATRIAL SEPTUM Normal atrial septal thickness without atrial level shunting by limited color doppler interrogation. AORTA The aortic root and proximal ascending aorta are normal in size on limited imaging. MITRAL VALVE Mild thickening of the mitral valve leaflets. No mitral valve regurgitation. AORTIC VALVE Aortic valve sclerosis is present. TRICUSPID VALVE Normal estimated pulmonary pressures. PULMONARY VALVE Trivial pulmonary valve regurgitation. VESSELS The inferior vena cava was not well visualized. PERICARDIUM No pericardial effusion. Elmer Valerio MD, FACC (Electronically Signed) Final Date:19 February 2017 19:33
[2017-02-19] MEDS: ATORVASTATIN 80 MG TAB PO SCH (20:56)
[2017-02-19 21:59] LABS: APTT (PATIENT) 48.1 SEC (24.3-30.1)
[2017-02-20] VITALS (26 sets, daily range): BP systolic 107–138; BP diastolic 62–83; PULSE 68–98; RESP 17–20; TEMP 97.3–98.6; O2SAT 93–100
[2017-02-20] MEDS ORDERED: CHLORHEXIDINE GLUCONATE 2 % 1 PACK (2 CLOTHS) TOPICAL PRN (02:45)
[2017-02-20] MEDS ORDERED: LACTATED RINGER'S 1000 ML IV PRN (02:45)
[2017-02-20] MEDS ORDERED: POVIDONE IODINE 5% (ANTISEPSIS KIT) 4 APPLICATIONS EACH NARE PRN (02:45)
[2017-02-20] MEDS ORDERED: SODIUM CHLORID 0.9% 500 ML IV PRN (02:45)
[2017-02-20] MEDS ORDERED: METOPROLOL TARTRATE 25 MG TAB PO PRN (02:45)
[2017-02-20] MEDS ORDERED: INSULIN HUMAN REGULAR 1,000 UNITS/10 ML VIAL SQ PRN (02:45)
[2017-02-20] MEDS ORDERED: PROTAMINE SULFATE 250 MG/25 ML VIAL IV ONE ×2 (05:00→10:10)
[2017-02-20] MEDS ORDERED: ARTIFICIAL TEARS OPTH OINT 3.5 APPLIC/3.5 GM TUBO ONE (05:00)
[2017-02-20] MEDS ORDERED: CALCIUM CHLORIDE 10% SOLN 1 GRAM/10 ML SYR IV ONE (05:00)
[2017-02-20] MEDS ORDERED: HEPARIN SODIUM - SQ 10,000 UNITS/ML VIAL SQ ONE (05:00)
[2017-02-20] MEDS ORDERED: PHENYLEPHRINE HCL 10 MG/ML VIAL IV ONE (05:00)
[2017-02-20] MEDS ORDERED: AMINOCAPROIC ACID INJ 250 MG/ML 20 ML VIAL IV ONE ×2 (05:00→10:10)
[2017-02-20] MEDS ORDERED: VECURONIUM BROMIDE 10 MG VIAL IV ONE (05:00)
[2017-02-20] MEDS ORDERED: GLYCOPYRROLATE 0.2 MG/ML VIAL IV ONE (05:00)
[2017-02-20] MEDS ORDERED: MAGNESIUM SULFATE 1000 MG/2 ML VIAL (PED) IV ONE (05:00)
[2017-02-20 05:56] LABS: APTT (PATIENT) 48.6 SEC (24.3-30.1)
[2017-02-20] MEDS: NITROGLYCERIN 2% OINT 1 GM PACKET TOPICAL SCH (06:00)
[2017-02-20] MEDS: INSULIN ASPART SUPPLEMENTAL SCALE SQ SCH ×4 (06:11→20:59)
[2017-02-20] MEDS ORDERED: HEPARIN SODIUM - SQ 10,000 UNITS/ML VIAL ONE ×2 (08:13→12:01)
[2017-02-20] MEDS ORDERED: VANCOMYCIN HCL 1000 MG VIAL ONE (08:13)
[2017-02-20] MEDS ORDERED: ceFAZolin 2 GM PREMIX 50 ML ONE (08:13)
[2017-02-20] MEDS: DOCUSATE SODIUM 50 MG/SENNA 8.6 MG TAB PO SCH ×2 (08:21→21:00)
[2017-02-20] MEDS: amLODIPine BESYLATE 5 MG TAB PO SCH (08:21)
[2017-02-20] MEDS: CARVEDILOL 6.25 MG TAB PO SCH (08:21)
[2017-02-20] MEDS: MUPIROCIN 2% OINT 1 APPLIC/GM SYR EACH NARE SCH ×2 (08:22→20:57)
[2017-02-20] MEDS: AMIODARONE 200 MG TAB PO SCH ×2 (08:22→21:00)
[2017-02-20] MEDS: SODIUM CHLORIDE 0.9% FLUSH 10 ML FLUSH IV FLUSH SCH ×2 (08:22→20:57)
[2017-02-20] MEDS: SODIUM CHLOR 0.9% 1000 ML INJ 1,000 ML IV SCH (09:03)
--- NOTE | 2017-02-20 09:05 | HHI.FPPN ---
Subjective Remarks Ms. Cruz states that she is doing well this morning. She has no concerns and is looking forward to her surgery. No CP, no SOB, no fever/chills, no nausea /vomiting. She is scheduled for her CABG this morning. (Yudy Soriano MD R1) Objective Vitals Vital Signs Date Time Temp Pulse Resp B/P Pulse Ox O2 Delivery O2 Flow Rate FiO2 02/20/17 08:00 82 02/20/17 07:00 98.4 79 17 134/78 96 02/20/17 07:00 85 02/20/17 06:09 72 02/20/17 05:00 98.2 80 18 123/68 99 02/20/17 05:00 77 02/20/17 04:00 79 02/20/17 03:00 80 02/20/17 02:00 81 02/20/17 01:00 78 02/20/17 00:00 98.0 81 18 115/67 99 02/20/17 00:00 76 02/19/17 23:00 90 02/19/17 22:00 92 02/19/17 21:00 98 02/19/17 20:47 21 02/19/17 20:00 102 02/19/17 20:00 98.0 106 18 138/92 98 02/19/17 19:00 106 02/19/17 18:00 104 02/19/17 17:00 86 02/19/17 16:00 86 02/19/17 15:00 98.5 92 17 138/76 92 02/19/17 15:00 100 02/19/17 14:00 82 02/19/17 13:05 99 21 02/19/17 13:00 85 02/19/17 12:00 78 02/19/17 11:00 97.9 78 16 130/76 99 02/19/17 11:00 83 02/19/17 10:00 82 I/O 02/19/17 02/19/17 02/19/17 02/20/17 02/20/17 02/20/17 07:00 15:00 23:00 07:00 15:00 23:00 Intake Total 400 ml 980 ml 564 ml Output Total 800 ml 4 ml Balance -400 ml 976 ml 564 ml Intake Oral 400 ml 720 ml 420 ml IV Total 260 ml 144 ml Output Urine Total 800 ml 4 ml # Voids 2 # Bowel Movements 1 (Yudy Soriano MD R1) Result Diagram: 02/18/17 1250 02/18/17 1250 Objective Remarks GENERAL: Pleasant, sitting up in bed, no acute distress SKIN: Warm and dry. NECK: Trachea midline. No JVD. CARDIOVASCULAR: Regular rate and rhythm. Normal S1/S2 RESPIRATORY: No accessory muscle use. Clear to auscultation. Breath sounds equal bilaterally. GASTROINTESTINAL: Abdomen soft, non-tender, nondistended. Hepatic and splenic margins not palpable. MUSCULOSKELETAL: Extremities without clubbing, cyanosis, or edema. No obvious deformities. NEUROLOGICAL: Awake and alert. No obvious cranial nerve deficits. Normal speech. PSYCHIATRIC: Appropriate mood and affect; insight and judgment normal. Procedures Cardiac catheterization 02/17/17 (Yudy Soriano MD R1) A/P Assessment and Plan 56 year old female with DM2 and HTN who came into the ED complaining of chest tightness. She has had chest tightness for 3 month, had an abnormal nuclear stress test and had a cardiac catheterization with stent scheduled for 02/16/17 which was cancelled when she changed cardiologists. Continues to have severe chest tightness and shortness of breath during minimal physical activity upon admission. Cardiac Cath 02/17/17 - 90% occlusion of the circumflex, RCA, distal left main and 80-90% occlusion of the LAD. CABG scheduled for this morning. Discharge Planning Pending CABG and recovery (Yudy Soriano MD R1) Attending Attestation Patient seen and examined. Case reviewed and discussed with the resident team. Agree with plan of care as discussed with me and documented in the resident note. (Reyes Al MD) Problem List: (1) Chest pain, atypical Status: Acute Plan: 3 months of chest pain, worsening, had a scheduled cath with stent on which was cancelled after changing cardiologists. S/p cath, results below, now requiring CABG -Cardiology consulted-appreciate recommendations -Cardiac Cath 02/17/17 - 90% occlusion of the circumflex, RCA, distal left main and 80-90% occlusion of the LAD. -CT surgery consulted for CABG -CABG scheduled for 02/20 -Pre-op management per CTS -Heparin gtt -Nitro Q8 prn chest pain -ASA -[place]/morphine PRN pain -Coreg 6.25mg BID -Lipitor 80mg HS (2) Diabetes mellitus type 2 in obese Status: Acute Plan: Held home medications - Low dose sliding scale insulin (3) Benign hypertension Status: Chronic Plan: Continue home meds -Lisinopril 40mg daily (4) FEN Status: Acute Plan: Fluids: tolerating PO Electrolytes: Monitor and correct as needed Nutrition: NPO after midnight DVT ppx: Heparin gtt (Yudy Soriano MD R1) Yudy Soriano MD R1 Feb 20, 2017 09:05 Reyes Al MD Feb 20, 2017 10:29
[2017-02-20] MEDS ORDERED: NORMOSOL R INJ 2,000 ML IV ONE (10:10)
[2017-02-20] MEDS ORDERED: NEOSTIGMINE METHYLSULFATE 10 MG/10 ML VIAL IV PUSH ONE (10:10)
[2017-02-20] MEDS ORDERED: SODIUM CHLOR 0.9% 250 ML INJ 500 ML IV ONE (10:10)
[2017-02-20] MEDS ORDERED: LACTATED RINGER'S 1000 ML INJ 1,000 ML IV ONE (10:10)
[2017-02-20] MEDS ORDERED: POTASSIUM CHLOR 40 MEQ PREMIX 100 ML ONE (11:24)
[2017-02-20] MEDS ORDERED: fentaNYL CITRATE 1000 MCG/20 ML VIAL ONE (11:29)
[2017-02-20] MEDS ORDERED: MIDAZOLAM HCL 2 MG/2 ML VIAL ONE ×3 (11:30→18:23)
[2017-02-20] MEDS ORDERED: CARDIOPLEGIC IRR 1,000 ML ONE (11:58)
[2017-02-20] MEDS ORDERED: HEPARIN SODIUM - IV 10,000 UNITS/10 ML VIAL ONE (11:59)
[2017-02-20] MEDS ORDERED: MANNITOL INJ 50 ML ONE (12:01)
[2017-02-20] MEDS ORDERED: POTASSIUM CHLORIDE 40 MEQ/20 ML VIAL ONE (12:02)
[2017-02-20] MEDS ORDERED: SODIUM BICARBONATE 8.4% INJ 50 ML ONE (12:02)
[2017-02-20] MEDS ORDERED: ALBUMIN HUMAN 25% 12.5 GM/50 ML BAGP IV ONE (12:03)
[2017-02-20] MEDS ORDERED: methylPREDNISolone SOD SUCC 125 MG/2 ML VIAL ONE (13:30)
--- NOTE | 2017-02-20 13:45 | HHI.FF ---
Face to Face Verification Diagnosis: (1) NSTEMI (non-ST elevated myocardial infarction) (2) Obesity (3) Benign hypertension (4) Diabetes mellitus type 2 in obese Home Health Nursing Order: Signs/symptoms of disease process Diabetic education Medication education-adverse effect Wound care and dressing changes Nursing assessment with vital signs Instructions: Heart and Vascular Surgery patients *Special attention to sternal dressing Mandatory frequency Assess and evaluation, 4 days in a row The next week 3X week 2 times a week for 4 weeks 1 time a week for 5 weeks Schedule Heart and Vascular patients for full 60 day certification period Initial visit Review Open Heart Surgery Discharge Instructions (Sternal precautions, Activity, Elastic hose, Incision care, Driving, Incentive spirometry, Smoking, Goodell, Work and other) Need Betadine to paint incision Medication reconciliation Importance of follow up care/ check on appointments Make calendar record temperature daily When to call [facility] nurse, review instructions, phone list Incentive Spirometry, demonstration Visit 1- Begin discharge instruction for patient family and/ or caregiver using teach back method- Signs and symptoms of infection Disease characteristics Medicines and side effects Foods and nutrition/ appetite Infection control/ hand washing/ hygiene Visit 2- Continue teaching Discharge instructions- include additional information on smoking cessation , sternal dressing (sternal vac) Visit 3- Continue teaching- Cough and deep breathing, incision monitoring. Choose my plate Visit 4- Continue teaching- Discuss limitations Discuss how they are feeling Discuss progress toward goals Remaining visits- continue teaching and monitoring PREVENA Single Use Negative Wound Therapy System Caregiver Instruction Sheet 1. A Prevena dressing system was applied to the chest incision during surgery , to promote wound healing. It works via a suction device (negative pressure wound therapy) to remove low to moderate levels of exudate (drainage) and infectious materials. We recommend that the device stay in place for up to seven days, from day of surgery. 2. Day of Surgery____/ Day of Removal ___/ 3. The dressing should only be removed by a health care analyst. Please arrange removal of device to coincide with Home Health visit and or with Nursing staff at Rehab 4. If skin reddening or irritation of skin occurs, or excessive drainage, please notify the Cardiovascular Surgeons office at [phone]. 5. Light showering is permissible; however the pump should be disconnected and placed in safe location, where it will not get wet. The dressing should not be exposed to direct spray or submerged in water. No bath tub / shower only. Ensure the end of the tubing attached to the dressing is facing down so that water does not enter the top of the tube. 6. To remove Prevena dressing: press purple button to turn off device / remove the suction. Then disconnect the tubing from the pump. The fixation strips should be stretched away from the skin and the dressing lifted at one corner and peeled back until it has been fully removed. 7. After removal, it is ok to shower daily using liquid dial soap and clean wash cloth, rinse and pat dry, and leave incision open to air dry. For any concerns regarding Prevena dressing, and or wounds, please contact Ilana Schwartz, patient navigator at [phone] or notify the Cardiovascular Surgeons office at [phone]. Incentive spirometry Q1 hr x 10, while awake, also use acapella device hourly whole awake Sternal Breast Bone Precautions: NO pushing or pulling, ( pt must use sternal pillow to support chest with all activities and with coughing ( takes up to 3 months breast bone to heal ) All females to wear sternal bra , launder as needed Daily incision care: ok to shower daily, no tub bath. Wash all incisions with liquid dial soap, clean wash cloth to each site, rinse and pat dry. Observe for any signs of infection, such as drainage which is dark yellow, sorto, green or foul smelling. Immediately report to the surgeon any drainage from the chest incision, or legs, and for any abnormal drainage from the chest tube sites. Notify surgeon if any temp >101.5 degrees F. When specialty dressing removed/ or if you do not have one, continue to shower daily as above, then rinse and pat incision dry and paint with betadine daily x 5 days. Allow steri strips to fall off if you have any. Avoid lotions, creams, salves, oils, etc. for the first month Please see attached forms for additional instructions regarding post Open Heart specialty wound vacuum dressings. BRIGETTE or Prevena , Dressing to be removed by Nursing staff on __02/27/[address] Perry patients , please obtain CBC, BMP, PA & Lat CXR in 2 weeks, results to Dr. Perry ( prescription will be given) ( ) (Tele: [phone]) , F/U appointment: as per DC instructions: PCP in 2 weeks, CV surgeon 2 weeks, Geotechnician 3-4 weeks For any questions regarding incisions/ dressing / meds / post op care or above Symptoms, Sunday 8am-5pm Heart & Vascular Surgery Office ( Dr. tSark & Dr. Perry), After Hours / Nights (5pm -8am) Weekends and Holidays Please call [facility] ([facility]) Charge Nurse I have seen patient Ambreen Cruz on 02/20/17. My clinical findings support the need for the requested home health care services because: Deconditioned w/ increased weakness I certify that my clinical findings support that this patient is homebound because: Post-op weakness Concepcion Oquendo Feb 20, 2017 13:45
[2017-02-20] MEDS ORDERED: ceFAZolin INJ 1,000 MG VIAL ONE (17:20)
[2017-02-20] MEDS ORDERED: LACTATED RINGER'S 1000 ML INJ 500 ML IV PRN (17:53)
[2017-02-20] MEDS ORDERED: Post-op Orders (for Pharmacy) MISC OTHER ONE (18:00)
[2017-02-20] MEDS ORDERED: RESP: RACEPINEPHRINE 2.25% 0.5 ML NEB NEB PRN (18:00)
[2017-02-20] MEDS ORDERED: METOPROLOL TARTRATE 5 MG/5 ML VIAL IV PUSH PRN (18:00)
[2017-02-20] MEDS ORDERED: ACETAMINOPHEN 325 MG TAB PO PRN (18:00)
[2017-02-20] MEDS ORDERED: POTASSIUM CHLORIDE 20 MEQ CONTROLLED RELEASE TAB PO PRN ×2 (18:00)
[2017-02-20] MEDS ORDERED: CALCIUM CHLORIDE INJ 1 GM in SODIUM CHLORIDE 0.9% INJ 100 ML IV PRN (18:00)
[2017-02-20] MEDS ORDERED: ACETAMINOPHEN 650 MG SUPP RECTAL PRN (18:00)
[2017-02-20] MEDS ORDERED: hydrALAZINE HCL 20 MG/ML VIAL IV PRN (18:00)
[2017-02-20] MEDS ORDERED: MAGNESIUM SULFATE INJ 2 GM in SODIUM CHLORIDE 0.9% INJ 100 ML IV PRN ×4 (18:00)
[2017-02-20] MEDS ORDERED: DEXTROSE 50% IN WATER 50 ML VIAL(D50) IV PUSH PRN (18:00)
[2017-02-20] MEDS ORDERED: ALBUMIN HUMAN 5% 12.5 GM/250 ML BOTTLE IV PRN (18:00)
[2017-02-20] MEDS ORDERED: INSULIN REGULAR (IV INFUSION) 100 UNITS in SODIUM CHLORIDE 0.9% INJ 99 ML IV SCH (18:00)
[2017-02-20] MEDS ORDERED: CALCIUM CHLORIDE 10% 1 GRAM/10 ML VIAL IV PRN (18:00)
[2017-02-20] MEDS ORDERED: CLEVIDIPINE INJ 50 ML IV SCH (18:00)
[2017-02-20] MEDS ORDERED: POTASSIUM CHLOR 20 MEQ PREMIX 100 ML IV PRN ×3 (18:00)
--- NOTE | 2017-02-20 18:05 | PD.OP ---
cc: Yenny Negrete MD; Lluvia Perry MD Operative Report Date of Surgery: Feb 20, 2017 Preoperative Diagnosis: (1) NSTEMI (non-ST elevated myocardial infarction) (2) CAD (coronary artery disease) Postoperative Diagnosis: same Procedure: CABG x 4 TSE to LAD - good SVG to D1 - good SVG to OM1 - good SVG to PDA - good EVH Anesthesia: Dr. Dougherty Surgeon: Lluvia Perry Field Marketing Director(s): Payam SIEGEL Operation and Findings: The risks, benefits, complications, treatment options, and expected outcomes were discussed with the patient. The possibilities of reaction to medication, pulmonary aspiration, perforation of viscus, bleeding, recurrent infection, the need for additional procedures, failure to diagnose a condition, and creating a complication requiring transfusion or operation were discussed with the patient. The patient concurred with the proposed plan, giving informed consent. The site of surgery properly noted/marked. The patient was taken to Operating Room, identified as Ambreen Cruz and the procedure verified as CABG, EVH. A Time Out was held and the above information confirmed. Standard monitoring lines and Polanco catheter were placed. General anesthesia was induced. The patient was prepped and draped in a sterile fashion. A median sternotomy was performed and electrocautery was used to obtain hemostasis. The left internal mammary artery was procured as a pedicle from the 7th rib to the 1st rib in the usual manner. Simultaneously left greater saphenous vein was procured from the left leg using a minimally invasive endoscopic technique. The vein was prepared for anastomosis and the leg wound was irrigated and closed in 2 layers. The pericardium was opened and a pericardial sling was created using interrupted 0 silk sutures. The patient was heparinized for cardiopulmonary bypass and the distal mammary pedicle was instrumented for anastomosis. The heart was instrumented for cardiopulmonary bypass in the usual manner. Antegrade blood cardioplegia was employed. The patient was placed on cardiopulmonary bypass. An aortic cross-clamp was applied and the heart was arrested using cold blood cardioplegia. Antegrade cardioplegia was administered after he each anastomosis. After adequate arrest, the distal right coronary circulation was investigated and the PDA was opened with a [place] blade and found to be a 1.5 millimeter good target. Saphenous vein was approximated to the PDA artery using a running 7 0 Prolene suture. The graft was measured for length and orientation and the proximal anastomosis was constructed to the ascending aorta using a running 5 0 Prolene suture after creating an aortotomy with a 5 millimeter punch. The 1st circumflex marginal artery was then opened with a [place] blade and found to be a 1.5 millimeter good target. Saphenous vein was approximated to the OM1 artery using a running 7 0 Prolene suture. The graft was measured for length and orientation and the proximal anastomosis was constructed to the ascending aorta using a running 5 0 Prolene suture after creating an aortotomy with a 5 millimeter punch. The 1st diagonal artery was then opened with a [place] blade and found to be a 1.5 millimeter good target. Saphenous vein was approximated to the D1 artery using a running 7 0 Prolene suture.The graft was measured for length and orientation and was suspended from the pericardium. The distal LAD was opened with a [place] blade and found to be a 1.5 millimeter good target. The left internal mammary artery was approximated to the LAD using a running 7 0 Prolene suture. The pedicle was attached to the epicardium using interrupted 5 0 silk suture. The patient was systemically rewarmed and received a hotshot dose of warm blood cardioplegia. The aorta was vented and the proximal anastomosis to the D1 graft was accomplished using a running 5 0 Prolene suture after creating an aortotomy was a 5 millimeter punch. The cross-clamp was removed and all proximal and distal anastomoses were examined for hemostasis. The patient was weaned from cardiopulmonary bypass. Protamine was given. There was no adverse reaction. Decannulation was carried out without incident. Wound was checked for hemostasis which was obtained using electrocautery. A 36 [place] mediastinal and 32 [place] left pleural chest was were placed and secured to the skin with 0 silk suture. The sternum was closed with stainless steel wire. The fascia was closed with 1. PDS. The subcutaneous tissue was closed using a running 2-0 Vicryl suture. The skin was closed with 4-0 Monocryl. Sterile dressings were placed. At the end of the operation, all sponge, instruments, and needle counts were correct. The patient was transferred to the CVICU in stable condition. Findings: Morbidly obese patient, good distal targets XC: 65 min CPB: 71 min Drains: mediastinal x 1 pleural x 1 Complications: none Disposition: to CVICU in stable condition Lluvia Peryr MD Feb 20, 2017 18:05
--- NOTE | 2017-02-20 18:50 | RADRPT ---
EXAM DATE/TIME: 02/20/2017 18:30 [facility] COMPARISON: CHEST SINGLE AP, February 16, 2017, 10:49. INDICATIONS : Post CABG. MEDICAL HISTORY : Hypertension. Diabetes mellitus type II. Heart blockage. SURGICAL HISTORY : None. ENCOUNTER: Initial ACUITY: 1 day PAIN SCORE: Non-responsive. LOCATION: Bilateral chest FINDINGS: Median sternotomy and CABG in the interim. There is mild right and moderate left mid and lower lung a telectasis. A tiny left apical pneumothorax is seen. Endotracheal tube tip is approximately 3 cm above the yoselin. There is a mediastinal drain and a left chest tube. Nasogastric tube courses into the stomach. There is a right internal jugular central danielle ous catheter with tip at the atrial caval junction. CONCLUSION: 1. Appropriately positioned lines and tubes as above, including a left chest tube. 2. Tiny left apical pneumothorax. 3. Left greater than right basilar atelectasis. Payam Del Toro MD on February 20, 2017 at 18:47 Board Certified Radiologist. This report was verified electronically.
[2017-02-20] MEDS: ACETAMINOPHEN 1000 MG/100 ML VIAL IV SCH (20:50)
[2017-02-20] MEDS: ATORVASTATIN 80 MG TAB PO SCH (21:00)
[2017-02-20] MEDS: RESP: ALBUTEROL 2.5 MG/IPRATROPIUM 0.5 MG NEB (SCH) NEB (21:31)
[2017-02-21] VITALS (8 sets, daily range): BP systolic 109–141; BP diastolic 66–81; PULSE 79–125; RESP 16–22; TEMP 97.9–99; O2SAT 90–95
[2017-02-21] MEDS: ACETAMINOPHEN 1000 MG/100 ML VIAL IV SCH ×3 (01:56→14:24)
[2017-02-21 04:34] LABS: HEMATOCRIT 34.3 % (35.0-46.0); MEAN CELL VOLUME 78.5 FL (80.0-100.0); MEAN CORPUSCULAR HEMOGLOBIN 25.9 PG (27.0-34.0); MEAN CORPUSCULAR HGB CONC 32.9 % (32.0-36.0); PLATELET COUNT 183 TH/MM3 (150-450); RED BLOOD COUNT 4.37 MIL/MM3 (4.00-5.30); RED CELL DISTRIBUTION WIDTH 14.5 % (11.6-17.2); REVIEW FLAG FINAL; WHITE BLOOD COUNT 19.3 TH/MM3 (4.0-11.0)
[2017-02-21] MEDS: RESP: ALBUTEROL 2.5 MG/IPRATROPIUM 0.5 MG NEB (SCH) NEB ×4 (04:40→20:46)
[2017-02-21 05:02] LABS: BICARBONATE 25.7 MEQ/L (21.0-32.0); MAGNESIUM 2.5 MG/DL (1.5-2.5); POTASSIUM 5.1 MEQ/L (3.5-5.1)
[2017-02-21] MEDS: oxyCODONE/ACETAMINOPHEN 5 MG/325 MG TAB PO PRN ×3 (05:50→19:34)
[2017-02-21] MEDS: PANTOPRAZOLE SOD 40 MG DELAYED RELEASE TAB PO SCH (05:50)
--- NOTE | 2017-02-21 05:57 | RADRPT ---
EXAM DATE/TIME: 02/21/2017 05:12 [facility] COMPARISON: CHEST SINGLE AP, February 20, 2017, 18:30. INDICATIONS : Short of breath. MEDICAL HISTORY : None. SURGICAL HISTORY : CABG. ENCOUNTER: Subsequent ACUITY: 2 days PAIN SCORE: 0/10 LOCATION: Bilateral chest FINDINGS: Bilateral chest drainage catheters similar position to prior. Interval removal of endotracheal and g astric tubes. Right internal jugular catheter tip projects over the cavoatrial junction. Patchy are as of infiltrate in the central and infrahilar lung bilaterally stable from prior. Both hemidiaphrag ms well delineated. CONCLUSION: Patchy central and lower medial infiltrates, stable from prior. Cleveland Leon MD on February 21, 2017 at 5:54 Board Certified Radiologist. This report was verified electronically.
[2017-02-21] MEDS ORDERED: DEXTROSE 50% IN WATER 50 ML VIAL(D50) IV PRN (06:45)
[2017-02-21] MEDS ORDERED: GLUCAGON 1 MG/ML VIAL OTHER PRN (06:45)
[2017-02-21] MEDS ORDERED: SOD PHOSPHATE/SOD BIPHOSPHATE (ADULT) ENEMA 133ML RECTAL PRN (06:45)
--- NOTE | 2017-02-21 06:51 | PD.CAR.PN ---
CVT Progress Note CVT: POD #: 1 Subjective/Hospital Course: 56/ black female presented to ED with chest pain / ruled in for NSTEMI, underwent heart cath showing multivessel disease/ LM 80-90% EF 50% . PMH: obesity BMI 42/ DM on oral glipizide, HTN scheduled for surgery in am , currently pain free 02/21/17 doing well thismorning. no complaints. Objective: Vital Signs Date Time Temp Pulse Resp B/P Pulse Ox O2 Delivery O2 Flow Rate FiO2 02/21/17 06:36 16 02/21/17 03:00 98.3 84 19 116/71 94 124/66 02/21/17 03:00 79 02/20/17 23:00 68 02/20/17 23:00 97.9 69 20 107/71 95 113/62 02/20/17 22:03 98.6 02/20/17 21:42 93 Nasal Cannula 6.00 02/20/17 21:40 93 Nasal Cannula 6 02/20/17 21:20 98 60 02/20/17 20:00 74 02/20/17 19:00 96 Mechanical Ventilator 60 02/20/17 19:00 98.0 74 18 128/81 96 128/72 02/20/17 19:00 70 02/20/17 18:44 60 02/20/17 18:38 97.8 70 18 126/79 94 126/71 02/20/17 18:35 72 02/20/17 18:31 97.3 02/20/17 18:10 94 50 02/20/17 12:00 77 02/20/17 11:24 97 21 02/20/17 11:17 98.0 79 17 138/83 100 02/20/17 11:00 79 02/20/17 10:00 74 02/20/17 09:00 83 02/20/17 08:00 82 02/20/17 07:00 98.4 79 17 134/78 96 02/20/17 07:00 85 Labs: Laboratory Tests Test 02/21/17 03:50 White Blood Count 19.3 TH/MM3 (4.0-11.0) Red Blood Count 4.37 MIL/MM3 (4.00-5.30) Hemoglobin 11.3 GM/DL (11.6-15.3) Hematocrit 34.3 % (35.0-46.0) Mean Corpuscular Volume 78.5 FL (80.0-100.0) Mean Corpuscular Hemoglobin 25.9 PG (27.0-34.0) Mean Corpuscular Hemoglobin 32.9 % Concent (32.0-36.0) Red Cell Distribution Width 14.5 % (11.6-17.2) Platelet Count 183 TH/MM3 (150-450) Mean Platelet Volume 8.9 FL (7.0-11.0) Sodium Level 137 MEQ/L (136-145) Potassium Level 5.1 MEQ/L (3.5-5.1) Chloride Level 105 MEQ/L (98-107) Carbon Dioxide Level 25.7 MEQ/L (21.0-32.0) Anion Gap 6 MEQ/L (5-15) Blood Urea Nitrogen 12 MG/DL (7-18) Creatinine 0.79 MG/DL (0.50-1.00) Estimat Glomerular Filtration 91 ML/MIN (>89) Rate Random Glucose 211 MG/DL (74-106) Calcium Level 7.7 MG/DL (8.5-10.1) Magnesium Level 2.5 MG/DL (1.5-2.5) Result Diagram: 02/21/1734902/21/17 035 Imaging: Last 24 hours Impressions Chest X-Ray 02/21/17 050 Signed Impressions: Service Date/Time: Tuesday, February 21, 2017 05:12 - CONCLUSION: Patchy central and lower medial infiltrates, stable from prior. Cleveland Leon MD Cardiovascular: RRR Telemetry: NSR Pulmonary: Decreased Bs bilat GI/: NABS Incision: dry and intact CT: ~350ml since OR [facility]c [place] Encourage ambulation Diurese No BB today due to eliezer BP Adjust insulin, monitor glucose - uncontrolled DM with HbA1C of 10.2% (1) CAD (coronary artery disease) Plan: on ASA, stain , BB for surgery in am 2nd case (2) NSTEMI (non-ST elevated myocardial infarction) (3) Obesity (4) Diabetes mellitus type 2 in obese (5) Benign hypertension Problem Qualifiers (1) CAD (coronary artery disease): Qualified Code: I25.110 - Coronary artery disease involving [place] coronary artery of [place] heart with unstable angina pectoris (2) Obesity: Lluvia Perry MD Feb 21, 2017 06:50
[2017-02-21] MEDS ORDERED: INSULIN DETEMIR 100 UNITS/ML VIAL SQ ONE (08:15)
[2017-02-21] MEDS ORDERED: INSULIN REGULAR (IV INFUSION) 100 UNITS in SODIUM CHLORIDE 0.9% INJ 99 ML IV SCH (08:15)
[2017-02-21] MEDS: SODIUM CHLOR 0.9% 1000 ML INJ 1,000 ML IV SCH (09:03)
--- NOTE | 2017-02-21 09:16 | HHI.FPPN ---
Subjective Remarks Pt seen and examined this morning. Pt is s/p CABG yesterday. Tolerated surgery well. Today, pt is sitting up in chair and in good spirits. She is having some back pain, otherwise, no complaints. (Gus Alarcon MD, R2) Objective Vitals Vital Signs Date Time Temp Pulse Resp B/P Pulse Ox O2 Delivery O2 Flow Rate FiO2 02/21/17 08:55 95 Nasal Cannula 6.00 02/21/17 06:36 16 02/21/17 03:00 98.3 84 19 116/71 94 124/66 02/21/17 03:00 79 02/20/17 23:00 68 02/20/17 23:00 97.9 69 20 107/71 95 113/62 02/20/17 22:03 98.6 02/20/17 21:42 93 Nasal Cannula 6.00 02/20/17 21:40 93 Nasal Cannula 6 02/20/17 21:20 98 60 02/20/17 20:00 74 02/20/17 19:00 96 Mechanical Ventilator 60 02/20/17 19:00 98.0 74 18 128/81 96 128/72 02/20/17 19:00 70 02/20/17 18:44 60 02/20/17 18:38 97.8 70 18 126/79 94 126/71 02/20/17 18:35 72 02/20/17 18:31 97.3 02/20/17 18:10 94 50 02/20/17 12:00 77 02/20/17 11:24 97 21 02/20/17 11:17 98.0 79 17 138/83 100 02/20/17 11:00 79 02/20/17 10:00 74 I/O 02/20/17 02/20/17 02/20/17 02/21/17 02/21/17 02/21/17 07:00 15:00 23:00 07:00 15:00 23:00 Intake Total 564 ml 637 ml Output Total 1141 ml Balance 564 ml -504 ml Intake Oral 420 ml IV Total 144 ml 637 ml Output Urine Total 855 ml Gastric Drainage Total 0 ml Chest Tube Drainage Total 286 ml # Voids 2 (Gus Alarcon MD, R2) Result Diagram: 02/21/17 03502/21/17 0350 Objective Remarks GENERAL: Pleasant, sitting up in bed, no acute distress SKIN: Warm and dry. Chest incision C/D/I CARDIOVASCULAR: Regular rate and rhythm. RESPIRATORY: No accessory muscle use. CTAB. Decreased breath sounds. GASTROINTESTINAL: Abdomen soft, non-tender, nondistended. MUSCULOSKELETAL: Extremities without clubbing, cyanosis, or edema. No obvious deformities. NEUROLOGICAL: Awake and alert. No obvious cranial nerve deficits. Normal speech. PSYCHIATRIC: Appropriate mood and affect; insight and judgment normal. Procedures Cardiac catheterization 02/17/17 CABG 02/20/17 (Gus Alarcon MD, R2) A/P Assessment and Plan 56 year old female with DM2 and HTN who came into the ED complaining of chest tightness. She has had chest tightness for 3 month, had an abnormal nuclear stress test and had a cardiac catheterization with stent scheduled for 02/16/17 which was cancelled when she changed cardiologists. Continues to have severe chest tightness and shortness of breath during minimal physical activity upon admission. Cardiac Cath 02/17/17 - 90% occlusion of the circumflex, RCA, distal left main and 80-90% occlusion of the LAD. S/p CABG on 02/20. Discharge Planning Pending post-op CABG recovery and CTS clearance (Gus Alarcon MD, R2) Attending Attestation Patient seen and examined. Case reviewed and discussed with the resident team. Agree with plan of care as discussed with me and documented in the resident note. (Reyes Al MD) Problem List: (1) CAD (coronary artery disease) Status: Acute Plan: 3 months of chest pain, worsening, had a scheduled cath with stent on which was cancelled after changing cardiologists. S/p cath, results below, s/p CABG POD#1 from CABG -Cardiology consulted-appreciate recommendations -Cardiac Cath 02/17/17 - 90% occlusion of the circumflex, RCA, distal left main and 80-90% occlusion of the LAD. -CT surgery consulted for CABG -CABG performed on 02/20/17 -Post-op management per CTS -ASA -Amlodipine 2.5mg daily -Amiodarone (2) Diabetes mellitus type 2 in obese Status: Acute Plan: Held home medications. A1c of 10.2. Will need f/u of insulin and DM control - Low dose sliding scale insulin (3) Benign hypertension Status: Chronic Plan: Continue home meds -Lisinopril 40mg daily (4) FEN Status: Acute Plan: Fluids: IV fluids, per CTS Electrolytes: Monitor and correct as needed Nutrition: Heart healthy DVT ppx: per CTS (Gus Alarcon MD, R2) Problem Qualifiers (1) CAD (coronary artery disease): Qualified Code: I25.110 - Coronary artery disease involving [place] coronary artery of [place] heart with unstable angina pectoris Gus Alarcon MD, R2 Feb 21, 2017 09:16 Reyes Al MD Feb 21, 2017 15:57
[2017-02-21] MEDS: ASPIRIN 81 MG CHEW TAB PO SCH (09:21)
[2017-02-21] MEDS: MULTIVITAMINS/MINERALS THERAPEUTIC TAB PO SCH (09:21)
[2017-02-21] MEDS: AMIODARONE 200 MG TAB PO SCH (09:21)
[2017-02-21] MEDS: amLODIPine BESYLATE 5 MG TAB PO SCH (09:21)
[2017-02-21] MEDS: DOCUSATE SODIUM 50 MG/SENNA 8.6 MG TAB PO SCH (09:21)
[2017-02-21] MEDS: FUROSEMIDE 40 MG/4 ML VIAL IV PUSH SCH ×2 (09:22→18:55)
[2017-02-21] MEDS: MUPIROCIN 2% OINT 1 APPLIC/GM SYR EACH NARE SCH ×2 (09:23→21:00)
[2017-02-21] MEDS: SODIUM CHLORIDE 0.9% FLUSH 10 ML FLUSH IV FLUSH SCH ×2 (09:27→21:00)
[2017-02-21] MEDS: INSULIN ASPART SUPPLEMENTAL SCALE SQ SCH ×3 (10:00→18:00)
[2017-02-21] MEDS: MAGNESIUM HYDROXIDE SUSP 30 ML CUP PO SCH (12:34)
[2017-02-21] MEDS ORDERED: BISACODYL 10 MG SUPP RECTAL PRN (13:00)
[2017-02-21] MEDS ORDERED: KETOROLAC TROMETHAMINE 60 MG/2 ML (IM) VIAL IM PRN (13:00)
[2017-02-21] MEDS: CYCLOBENZAPRINE HCL 10 MG TAB PO PRN (13:21)
--- NOTE | 2017-02-21 15:04 | EKG ---
Date Performed: 02/21/2017 Time Performed: 04:34:00 PTAGE: 56 years EKG: Sinus rhythm Poor R wave progression - probable normal variant Lateral ST elevation, CONSIDER ACUTE INFARCT Infer ior and anterior T wave changes are nonspecific Low QRS voltages in precordial leads Abnormal ECG PREVIOUS TRACING : 02/16/2017 18.12 Compared to the previous tracing, QRS changes may be due to lead position DOCTOR: Vlad Dave Interpretating Date/Time 02/21/2017 15:03:10
[2017-02-22] VITALS (12 sets, daily range): BP systolic 89–131; BP diastolic 60–79; PULSE 88–118; RESP 20–26; TEMP 97.7–100.3; O2SAT 90–97
[2017-02-22] MEDS: SENNOSIDES 8.6 MG TAB PO SCH ×2 (01:16→20:46)
[2017-02-22] MEDS: DOCUSATE SODIUM 100 MG CAP PO SCH ×3 (01:16→20:44)
[2017-02-22] MEDS: ATORVASTATIN 80 MG TAB PO SCH ×2 (01:17→20:44)
[2017-02-22] MEDS: AMIODARONE 200 MG TAB PO SCH ×3 (01:17→20:44)
[2017-02-22] MEDS: INSULIN ASPART SUPPLEMENTAL SCALE SQ SCH ×6 (01:33→22:01)
[2017-02-22 04:28] LABS: AUTOMATED NEUTROPHIL # 16.3 TH/MM3 (1.8-7.7); BASOPHIL # 0.1 TH/MM3 (0-0.2); BASOPHIL % 0.5 % (0.0-2.0); EOSINOPHIL % 0.1 % (0.0-4.0); HEMATOCRIT 35.9 % (35.0-46.0); LYMPH % 7.9 % (9.0-44.0); LYMPHOCYTE # 1.6 TH/MM3 (1.0-4.8); MEAN CELL VOLUME 78.8 FL (80.0-100.0); MEAN CORPUSCULAR HEMOGLOBIN 25.9 PG (27.0-34.0); MEAN CORPUSCULAR HGB CONC 32.9 % (32.0-36.0); MONO % 11.6 % (0.0-8.0); NEUT % 79.9 % (16.0-70.0); PLATELET COUNT 182 TH/MM3 (150-450); RED BLOOD COUNT 4.56 MIL/MM3 (4.00-5.30); RED CELL DISTRIBUTION WIDTH 14.6 % (11.6-17.2); WHITE BLOOD COUNT 20.4 TH/MM3 (4.0-11.0)
[2017-02-22 04:29] LABS: HEMO FLAGS AUTO DIFF
[2017-02-22] MEDS: RESP: ALBUTEROL 2.5 MG/IPRATROPIUM 0.5 MG NEB (PRN) NEB ×2 (04:29→09:51)
[2017-02-22 05:21] LABS: BANDS 1 % (0-6); NEUTROPHIL # MANUAL DIFF 15.9 TH/MM3 (1.8-7.7); PLATELET ESTIMATE SMEAR NORMAL (NORMAL); PLATELET MORPHOLOGY NORMAL (NORMAL); POLYS (SEG NEUTROPHILS) 77 % (16-70); SCAN/DIFF FINAL DIFF MANUAL; WBC DIFF SAMPLE 100
[2017-02-22] MEDS: oxyCODONE/ACETAMINOPHEN 5 MG/325 MG TAB PO PRN ×3 (05:27→18:10)
[2017-02-22 05:34] LABS: BICARBONATE 30.2 MEQ/L (21.0-32.0); MAGNESIUM 2.5 MG/DL (1.5-2.5); POTASSIUM 4.1 MEQ/L (3.5-5.1)
[2017-02-22] MEDS: PANTOPRAZOLE SOD 40 MG DELAYED RELEASE TAB PO SCH (06:36)
[2017-02-22] MEDS: RESP: ALBUTEROL 2.5 MG/IPRATROPIUM 0.5 MG NEB (SCH) NEB ×3 (07:38→21:24)
[2017-02-22] MEDS: MUPIROCIN 2% OINT 1 APPLIC/GM SYR EACH NARE SCH ×2 (09:00→20:53)
[2017-02-22] MEDS: SODIUM CHLORIDE 0.9% FLUSH 10 ML FLUSH IV FLUSH SCH ×2 (09:00→20:44)
[2017-02-22] MEDS: MAGNESIUM HYDROXIDE SUSP 30 ML CUP PO SCH (09:10)
[2017-02-22] MEDS: POLYETHYLENE GLYCOL 17 GM PKG PO SCH (09:10)
[2017-02-22] MEDS: ASPIRIN 81 MG CHEW TAB PO SCH (09:10)
[2017-02-22] MEDS: MULTIVITAMINS/MINERALS THERAPEUTIC TAB PO SCH (09:10)
[2017-02-22] MEDS: FUROSEMIDE 40 MG/4 ML VIAL IV PUSH SCH ×2 (09:11→17:49)
[2017-02-22] MEDS: amLODIPine BESYLATE 5 MG TAB PO SCH (09:11)
[2017-02-22] MEDS: glipiZIDE 5 MG TAB PO SCH ×2 (09:30→17:00)
[2017-02-22] MEDS: METOPROLOL TARTRATE 25 MG TAB PO SCH ×2 (09:43→20:44)
[2017-02-22] MEDS: CYCLOBENZAPRINE HCL 10 MG TAB PO PRN (10:07)
--- NOTE | 2017-02-22 11:33 | HHI.FPPN ---
Subjective Remarks Pt states that she is not feeling well this AM. She started feeling shortness of breath this morning. She states that she was told to stop using her incentive spirometer. Fever of 100.3 this morning, no chills, no nausea/vomiting , she has not had an appetite. Did not eat much of her breakfast this morning. ( Yudy Soriano MD R1) Objective Vitals Vital Signs Date Time Temp Pulse Resp B/P Pulse Ox O2 Delivery O2 Flow Rate FiO2 02/22/17 07:43 94 Non-Rebreather 15.00 100 02/22/17 07:00 90 Non-Rebreather 15.00 02/22/17 07:00 100.3 116 22 131/79 94 02/22/17 06:30 18 02/22/17 03:00 118 02/22/17 03:00 98.4 118 20 128/75 93 02/22/17 02:20 18 02/21/17 23:00 98.6 125 22 116/75 90 02/21/17 23:00 125 02/21/17 20:46 Nasal Cannula 6.00 02/21/17 19:00 114 02/21/17 19:00 99.0 114 18 141/70 94 02/21/17 19:00 94 Nasal Cannula 6.00 02/21/17 16:55 108 02/21/17 16:51 98.3 108 18 128/81 92 02/21/17 14:54 18 I/O 02/21/17 02/21/17 02/21/17 02/22/17 02/22/17 02/22/17 07:00 15:00 23:00 07:00 15:00 23:00 Intake Total 637 ml 726 ml 660 ml Output Total 1141 ml 810 ml 850 ml Balance -504 ml -84 ml -190 ml Intake Oral 720 ml 460 ml IV Total 637 ml 6 ml 200 ml Output Urine Total 855 ml 650 ml 750 ml Gastric Drainage Total 0 ml Chest Tube Drainage Total 286 ml 160 ml 100 ml # Bowel Movements 0 0 (Yudy Soriano MD R1) Result Diagram: 02/22/1740402/22/17404 Objective Remarks GENERAL: Sitting in chair at bedside with a face mask flowing at 15L. no acute distress SKIN: Warm and dry. Chest incision C/D/I CARDIOVASCULAR: Tachycardic. Regular rate and rhythm. RESPIRATORY: No accessory muscle use. CTAB. Decreased breath sounds. GASTROINTESTINAL: Abdomen soft, non-tender, nondistended. MUSCULOSKELETAL: Extremities without clubbing, cyanosis, or edema. No obvious deformities. NEUROLOGICAL: Awake and alert. No obvious cranial nerve deficits. Normal speech. PSYCHIATRIC: Appropriate mood and affect; insight and judgment normal. Procedures Cardiac catheterization 02/17/17 CABG 02/20/17 (Yudy Soriano MD R1) A/P Assessment and Plan 56 year old female with DM2 and HTN who came into the ED complaining of chest tightness. She has had chest tightness for 3 month, had an abnormal nuclear stress test and had a cardiac catheterization with stent scheduled for 02/16/17 which was cancelled when she changed cardiologists. Continues to have severe chest tightness and shortness of breath during minimal physical activity upon admission. Cardiac Cath 02/17/17 - 90% occlusion of the circumflex, RCA, distal left main and 80-90% occlusion of the LAD. S/p CABG on 02/20. Discharge Planning Pending post-op CABG recovery and CTS clearance (Yudy Soriano MD R1) Attending Attestation Patient seen and examined. Case reviewed and discussed with the resident team. Agree with plan of care as discussed with me and documented in the resident note. (Reyes Al MD) Problem List: (1) CAD (coronary artery disease) Status: Acute Plan: 3 months of chest pain, worsening, had a scheduled cath with stent on which was cancelled after changing cardiologists. S/p cath, results below, s/p CABG POD#1 from CABG -Cardiology consulted-appreciate recommendations -Cardiac Cath 02/17/17 - 90% occlusion of the circumflex, RCA, distal left main and 80-90% occlusion of the LAD. -CT surgery consulted for CABG -CABG performed on 02/20/17 -Post-op management per CTS -ASA -Amlodipine 2.5mg daily -Amiodarone (2) Dyspnea Status: Acute Plan: Shortness of breath with post op fever started this morning. Temp of 100.3F at 0700. Last WBC 20.4. Pneumonia vs atelectesis vs PE. -Order chest XR. -blood cultures -UA (3) Diabetes mellitus type 2 in obese Status: Acute Plan: Held home medications. A1c of 10.2. Will need f/u of insulin and DM control - Low dose sliding scale insulin (4) Benign hypertension Status: Chronic Plan: Continue home meds -Lisinopril 40mg daily (5) FEN Status: Acute Plan: Fluids: IV fluids, per CTS Electrolytes: Monitor and correct as needed Nutrition: Heart healthy DVT ppx: per CTS (Yudy Soriano MD R1) Problem Qualifiers (1) CAD (coronary artery disease): Qualified Code: I25.110 - Coronary artery disease involving [place] coronary artery of [place] heart with unstable angina pectoris (2) Dyspnea: Qualified Code: R06.02 - Shortness of breath Yudy Soriano MD R1 Feb 22, 2017 11:33 Reyes Al MD Feb 22, 2017 21:25
[2017-02-22 14:24] LABS: BACTERIA, URINE RARE /hpf; BLOOD, URINE NEG (NEG); GLUCOSE,URINE TRACE mg/dL (NEG); HYALINE CAST, URINE 2 /lpf (RARE); KETONE, URINE 10 mg/dL (NEG); NITRITE,URINE NEG (NEG); SQUAMOUS EPITHELIAL CELL URINE <1 /hpf (0-5); URINE COLOR YELLOW (YELLW/STRAW)
--- NOTE | 2017-02-22 14:27 | PD.CAR.PN ---
CVT Progress Note CVT: POD #: 2 Subjective/Hospital Course: 56/ black female presented to ED with chest pain / ruled in for NSTEMI, underwent heart cath showing multivessel disease/ LM 80-90% EF 50% . PMH: obesity BMI 42/ DM on oral glipizide, HTN scheduled for surgery in am , currently pain free 02/21/17 doing well this morning. no complaints. 02/22 pt had low grade temp last night , now requiring 100% NRB mask to maintain sat > 92% will place on intermittent Bipap during day and at night chest tubes dc without difficulty , post CXr pending WBC 20K , did receive steroids in OR needs aggressive pulm toileting OOB ambulate Objective: GENERAL: SKIN: Warm and dry. prevena to chest , incision intact to left leg HEAD: Normocephalic. EYES: No scleral icterus. No injection or drainage. NECK: Supple, trachea midline. No JVD or lymphadenopathy. CARDIOVASCULAR: Regular rate and rhythm without murmurs, gallops, or rubs. RESPIRATORY: diminished in bases Breath sounds equal bilaterally. No accessory muscle use. poor cough effort GASTROINTESTINAL: Abdomen soft, non-tender, nondistended. MUSCULOSKELETAL: No cyanosis, or edema. BACK: Nontender without obvious deformity. No CVA tenderness. Vital Signs Date Time Temp Pulse Resp B/P Pulse Ox O2 Delivery O2 Flow Rate FiO2 02/22/17 11:00 106 02/22/17 11:00 99.9 102 20 117/71 90 02/22/17 07:43 94 Non-Rebreather 15.00 100 02/22/17 07:00 90 Non-Rebreather 15.00 02/22/17 07:00 100.3 116 22 131/79 94 02/22/17 07:00 114 02/22/17 06:30 18 02/22/17 03:00 118 02/22/17 03:00 98.4 118 20 128/75 93 02/22/17 02:20 18 02/21/17 23:00 98.6 125 22 116/75 90 02/21/17 23:00 125 02/21/17 20:46 Nasal Cannula 6.00 02/21/17 19:00 114 02/21/17 19:00 99.0 114 18 141/70 94 02/21/17 19:00 94 Nasal Cannula 6.00 8/16/17 16:55 108 02/21/17 16:51 98.3 108 18 128/81 92 02/21/17 14:54 18 Labs: Laboratory Tests Test 02/22/17 04:05 White Blood Count 20.4 TH/MM3 (4.0-11.0) Red Blood Count 4.56 MIL/MM3 (4.00-5.30) Hemoglobin 11.8 GM/DL (11.6-15.3) Hematocrit 35.9 % (35.0-46.0) Mean Corpuscular Volume 78.8 FL (80.0-100.0) Mean Corpuscular Hemoglobin 25.9 PG (27.0-34.0) Mean Corpuscular Hemoglobin 32.9 % Concent (32.0-36.0) Red Cell Distribution Width 14.6 % (11.6-17.2) Platelet Count 182 TH/MM3 (150-450) Mean Platelet Volume 8.8 FL (7.0-11.0) Neutrophils (%) (Auto) 79.9 % (16.0-70.0) Lymphocytes (%) (Auto) 7.9 % (9.0-44.0) Monocytes (%) (Auto) 11.6 % (0.0-8.0) Eosinophils (%) (Auto) 0.1 % (0.0-4.0) Basophils (%) (Auto) 0.5 % (0.0-2.0) Neutrophils # (Auto) 16.3 TH/MM3 (1.8-7.7) Lymphocytes # (Auto) 1.6 TH/MM3 (1.0-4.8) Monocytes # (Auto) 2.4 TH/MM3 (0-0.9) Eosinophils # (Auto) 0.0 TH/MM3 (0-0.4) Basophils # (Auto) 0.1 TH/MM3 (0-0.2) CBC Comment AUTO DIFF Differential Total Cells 100 Counted Neutrophils % (Manual) 77 % (16-70) Band Neutrophils % 1 % (0-6) Lymphocytes % 12 % (9-44) Monocytes % 10 % (0-8) Neutrophils # (Manual) 15.9 TH/MM3 (1.8-7.7) Differential Comment FINAL DIFF MANUAL Platelet Estimate NORMAL (NORMAL) Platelet Morphology Comment NORMAL (NORMAL) Red Cell Morphology Comment NORMAL (NORMAL) Sodium Level 134 MEQ/L (136-145) Potassium Level 4.1 MEQ/L (3.5-5.1) Chloride Level 98 MEQ/L (98-107) Carbon Dioxide Level 30.2 MEQ/L (21.0-32.0) Anion Gap 6 MEQ/L (5-15) Blood Urea Nitrogen 18 MG/DL (7-18) Creatinine 1.11 MG/DL (0.50-1.00) Estimat Glomerular Filtration 62 ML/MIN (>89) Rate Random Glucose 265 MG/DL (74-106) Calcium Level 7.9 MG/DL (8.5-10.1) Magnesium Level 2.5 MG/DL (1.5-2.5) Result Diagram: 02/22/1740402/22/17404 Telemetry: NSR (1) CAD (coronary artery disease) Plan: on ASA, stain , BB diuresis OOB pulm toileting nebs ezpap acapella atelectasis/ add Bipap (2) NSTEMI (non-ST elevated myocardial infarction) (3) Obesity (4) Diabetes mellitus type 2 in obese Plan: insulin sliding scale / re-add glipizide diabetic diet (5) Benign hypertension Problem Qualifiers (1) CAD (coronary artery disease): Qualified Code: I25.110 - Coronary artery disease involving [place] coronary artery of [place] heart with unstable angina pectoris (2) Obesity: Concepcion Oquendo Feb 22, 2017 14:27
[2017-02-22 14:29] LABS: COMMENT (UR) CULT NOT INDICATED; CULTURE IF INDICATED CULT NOT INDICATED
--- NOTE | 2017-02-22 14:53 | RADRPT ---
EXAM DATE/TIME: 02/22/2017 14:06 [facility] COMPARISON: CHEST SINGLE AP, February 21, 2017, 5:12. INDICATIONS : Post chest tube removal. Evaluate lung status. MEDICAL HISTORY : Hypercholesterolemia. Hypertension. Myocardial infarction. Diabetes. Coronary artery disease. SURGICAL HISTORY : Hysterectomy. CABG. ENCOUNTER: Initial ACUITY: 1 day PAIN SCORE: 0/10 LOCATION: Bilateral chest FINDINGS: Median sternotomy wires are noted status post cardiac surgery. The heart is enlarged. Perihilar stre akiness is noted bilaterally suggestive of pulmonary vascular congestion, atelectasis and/or developi ng infiltrates. Clinical correlation is recommended. A right internal jugular central line has its t ip in the right atrium. No pneumothorax is noted. Chest tubes have been removed. There is no pneumo thorax. CONCLUSION: 1. Perihilar streakiness consistent with mild pulmonary vascular congestion, atelectasis and/or devel oping infiltrates. Clinical correlation is recommended. 2. Cardiomegaly. 3. No evidence of pneumothorax. Hamzah Mcrae MD on February 22, 2017 at 14:46 Board Certified Radiologist. This report was verified electronically.
[2017-02-23] VITALS (14 sets, daily range): BP systolic 91–126; BP diastolic 56–75; PULSE 80–103; RESP 20–22; TEMP 98.5–99.4; O2SAT 92–98
[2017-02-23] MEDS: oxyCODONE/ACETAMINOPHEN 5 MG/325 MG TAB PO PRN ×2 (00:21→21:33)
[2017-02-23] MEDS: INSULIN ASPART SUPPLEMENTAL SCALE SQ SCH ×6 (02:05→21:36)
[2017-02-23 04:29] LABS: AUTOMATED NEUTROPHIL # 11.3 TH/MM3 (1.8-7.7); BASOPHIL # 0.1 TH/MM3 (0-0.2); BASOPHIL % 0.4 % (0.0-2.0); EOSINOPHIL # 0.4 TH/MM3 (0-0.4); EOSINOPHIL % 2.7 % (0.0-4.0); HEMATOCRIT 34.2 % (35.0-46.0); LYMPH % 13.4 % (9.0-44.0); LYMPHOCYTE # 2.2 TH/MM3 (1.0-4.8); MEAN CELL VOLUME 80.2 FL (80.0-100.0); MEAN CORPUSCULAR HEMOGLOBIN 25.7 PG (27.0-34.0); MEAN CORPUSCULAR HGB CONC 32.1 % (32.0-36.0); MONO % 13.3 % (0.0-8.0); NEUT % 70.2 % (16.0-70.0); PLATELET COUNT 170 TH/MM3 (150-450); RED BLOOD COUNT 4.26 MIL/MM3 (4.00-5.30); RED CELL DISTRIBUTION WIDTH 14.2 % (11.6-17.2); WHITE BLOOD COUNT 16.1 TH/MM3 (4.0-11.0)
[2017-02-23 04:33] LABS: HEMO FLAGS AUTO DIFF
[2017-02-23 04:53] LABS: BICARBONATE 32.4 MEQ/L (21.0-32.0); POTASSIUM 4.2 MEQ/L (3.5-5.1)
[2017-02-23 04:58] LABS: BANDS 8 % (0-6); EOSINOPHILS 1 % (0-4); NEUTROPHIL # MANUAL DIFF 11.8 TH/MM3 (1.8-7.7); POLYS (SEG NEUTROPHILS) 65 % (16-70); WBC DIFF SAMPLE 100
[2017-02-23 04:59] LABS: PLATELET ESTIMATE SMEAR NORMAL (NORMAL); PLATELET MORPHOLOGY NORMAL (NORMAL); SCAN/DIFF FINAL DIFF MANUAL
--- NOTE | 2017-02-23 05:03 | RADRPT ---
EXAM DATE/TIME: 02/23/2017 03:57 [facility] COMPARISON: CHEST SINGLE AP, February 22, 2017, 14:06. INDICATIONS : Follow up atelectasis. MEDICAL HISTORY : Hypercholesterolemia. Hypertension. Myocardial infarction. Diabetes. Coronary artery disease. SURGICAL HISTORY : Hysterectomy. CABG. ENCOUNTER: Subsequent ACUITY: 1 week PAIN SCORE: Non-responsive. LOCATION: chest FINDINGS: A single view of the chest demonstrates stable bibasilar airspace disease. No associated effusion. He art size is borderline prominent. Intact median sternotomy wires. Right IJ large bore catheter projec ts over the central venous system. CONCLUSION: 1. Stable bibasilar airspace disease. 2. Stable cardiomegaly Chepe Smith MD on February 23, 2017 at 5:01 Board Certified Radiologist. This report was verified electronically.
[2017-02-23] MEDS: PANTOPRAZOLE SOD 40 MG DELAYED RELEASE TAB PO SCH (05:37)
[2017-02-23] MEDS: RESP: ALBUTEROL 2.5 MG/IPRATROPIUM 0.5 MG NEB (SCH) NEB (07:36)
[2017-02-23] MEDS: glipiZIDE 5 MG TAB PO SCH ×2 (08:00→17:00)
[2017-02-23] MEDS: MUPIROCIN 2% OINT 1 APPLIC/GM SYR EACH NARE SCH (08:34)
[2017-02-23] MEDS: MAGNESIUM HYDROXIDE SUSP 30 ML CUP PO SCH (08:38)
[2017-02-23] MEDS: POLYETHYLENE GLYCOL 17 GM PKG PO SCH (08:38)
[2017-02-23] MEDS: FUROSEMIDE 40 MG/4 ML VIAL IV PUSH SCH ×2 (08:38→17:47)
[2017-02-23] MEDS: SODIUM CHLORIDE 0.9% FLUSH 10 ML FLUSH IV FLUSH SCH ×2 (08:39→21:31)
[2017-02-23] MEDS: AMIODARONE 200 MG TAB PO SCH ×2 (08:39→21:30)
[2017-02-23] MEDS: MULTIVITAMINS/MINERALS THERAPEUTIC TAB PO SCH (08:39)
[2017-02-23] MEDS: METOPROLOL TARTRATE 25 MG TAB PO SCH ×3 (08:39→21:30)
[2017-02-23] MEDS: DOCUSATE SODIUM 100 MG CAP PO SCH ×2 (08:39→21:00)
[2017-02-23] MEDS: ASPIRIN 81 MG CHEW TAB PO SCH (08:39)
[2017-02-23] MEDS: CYCLOBENZAPRINE HCL 10 MG TAB PO PRN (08:41)
--- NOTE | 2017-02-23 09:57 | PD.CAR.PN ---
CVT Progress Note Subjective/Hospital Course: 56/ black female presented to ED with chest pain / ruled in for NSTEMI, underwent heart cath showing multivessel disease/ LM 80-90% EF 50% . PMH: obesity BMI 42/ DM on oral glipizide, HTN scheduled for surgery in am , currently pain free 02/21/17 doing well this morning. no complaints. 02/22 pt had low grade temp last night , now requiring 100% NRB mask to maintain sat > 92% will place on intermittent Bipap during day and at night chest tubes dc without difficulty , post CXr pending WBC 20K , did receive steroids in OR needs aggressive pulm toileting OOB ambulate 02/23 was on [place] last pm total of 4 hrs, sats high 90's with Bipap 92/93% with 100% NRB, desats with ambulation / poor 02 reserve add singular, symbicort Objective: Vital Signs Date Time Temp Pulse Resp B/P Pulse Ox O2 Delivery O2 Flow Rate FiO2 02/23/17 07:39 94 Non-Rebreather 15.00 02/23/17 03:30 84 20 91/56 96 02/23/17 03:09 80 02/22/17 23:10 97.7 88 26 89/60 97 02/22/17 23:00 88 02/22/17 22:09 96 Bi-Pap 100 02/22/17 22:00 95 100 02/22/17 21:30 95 Non-Rebreather 15.00 02/22/17 20:18 90 Non-Rebreather 15.00 02/22/17 20:18 99.4 108 20 111/63 90 02/22/17 19:00 105 02/22/17 16:30 94 Bi-Pap 100 02/22/17 16:30 95 100 02/22/17 15:00 101 02/22/17 15:00 99.3 100 20 106/75 95 02/22/17 11:00 106 02/22/17 11:00 99.9 102 20 117/71 90 Labs: Laboratory Tests Test 02/23/17 03:45 White Blood Count 16.1 TH/MM3 (4.0-11.0) Red Blood Count 4.26 MIL/MM3 (4.00-5.30) Hemoglobin 11.0 GM/DL (11.6-15.3) Hematocrit 34.2 % (35.0-46.0) Mean Corpuscular Volume 80.2 FL (80.0-100.0) Mean Corpuscular Hemoglobin 25.7 PG (27.0-34.0) Mean Corpuscular Hemoglobin 32.1 % Concent (32.0-36.0) Red Cell Distribution Width 14.2 % (11.6-17.2) Platelet Count 170 TH/MM3 (150-450) Mean Platelet Volume 8.8 FL (7.0-11.0) Neutrophils (%) (Auto) 70.2 % (16.0-70.0) Lymphocytes (%) (Auto) 13.4 % (9.0-44.0) Monocytes (%) (Auto) 13.3 % (0.0-8.0) Eosinophils (%) (Auto) 2.7 % (0.0-4.0) Basophils (%) (Auto) 0.4 % (0.0-2.0) Neutrophils # (Auto) 11.3 TH/MM3 (1.8-7.7) Lymphocytes # (Auto) 2.2 TH/MM3 (1.0-4.8) Monocytes # (Auto) 2.1 TH/MM3 (0-0.9) Eosinophils # (Auto) 0.4 TH/MM3 (0-0.4) Basophils # (Auto) 0.1 TH/MM3 (0-0.2) CBC Comment AUTO DIFF Differential Total Cells 100 Counted Neutrophils % (Manual) 65 % (16-70) Band Neutrophils % 8 % (0-6) Lymphocytes % 18 % (9-44) Monocytes % 8 % (0-8) Eosinophils % 1 % (0-4) Neutrophils # (Manual) 11.8 TH/MM3 (1.8-7.7) Differential Comment FINAL DIFF MANUAL Platelet Estimate NORMAL (NORMAL) Platelet Morphology Comment NORMAL (NORMAL) Sodium Level 138 MEQ/L (136-145) Potassium Level 4.2 MEQ/L (3.5-5.1) Chloride Level 99 MEQ/L (98-107) Carbon Dioxide Level 32.4 MEQ/L (21.0-32.0) Anion Gap 7 MEQ/L (5-15) Blood Urea Nitrogen 25 MG/DL (7-18) Creatinine 1.05 MG/DL (0.50-1.00) Estimat Glomerular Filtration 66 ML/MIN (>89) Rate Random Glucose 150 MG/DL (74-106) Calcium Level 8.2 MG/DL (8.5-10.1) Magnesium Level 3.0 MG/DL (1.5-2.5) Result Diagram: 02/23/17 0345 02/23/17 0345 (1) CAD (coronary artery disease) Plan: on ASA, stain , BB diuresis OOB pulm toileting nebs ezpap acapella atelectasis/ add Bipap (2) NSTEMI (non-ST elevated myocardial infarction) (3) Obesity (4) Diabetes mellitus type 2 in obese Plan: insulin sliding scale / re-add glipizide diabetic diet (5) Benign hypertension Problem Qualifiers (1) CAD (coronary artery disease): Qualified Code: I25.110 - Coronary artery disease involving [place] coronary artery of [place] heart with unstable angina pectoris (2) Obesity: Concepcion Oquendo Feb 23, 2017 09:57
--- NOTE | 2017-02-23 10:10 | HHI.FPPN ---
Subjective Remarks Pt states that she is feeling better this morning. She is still feeling short of breath, but it has improved. No fever/chills, no CP, no nausea/vomiting. She has been up walking with PT. (Yudy Soriano MD R1) Objective Vitals Vital Signs Date Time Temp Pulse Resp B/P Pulse Ox O2 Delivery O2 Flow Rate FiO2 02/23/17 07:39 94 Non-Rebreather 15.00 02/23/17 03:30 84 20 91/56 96 02/23/17 03:09 80 02/22/17 23:10 97.7 88 26 89/60 97 02/22/17 23:00 88 02/22/17 22:09 96 Bi-Pap 100 02/22/17 22:00 95 100 02/22/17 21:30 95 Non-Rebreather 15.00 02/22/17 20:18 90 Non-Rebreather 15.00 02/22/17 20:18 99.4 108 20 111/63 90 02/22/17 19:00 105 02/22/17 16:30 94 Bi-Pap 100 02/22/17 16:30 95 100 02/22/17 15:00 101 02/22/17 15:00 99.3 100 20 106/75 95 02/22/17 11:00 106 02/22/17 11:00 99.9 102 20 117/71 90 I/O 02/22/17 02/22/17 02/22/17 02/23/17 02/23/17 02/23/17 07:00 15:00 23:00 07:00 15:00 23:00 Intake Total 660 ml 360 ml 480 ml Output Total 850 ml 1180 ml 450 ml Balance -190 ml -820 ml 30 ml Intake Oral 460 ml 360 ml 480 ml IV Total 200 ml Output Urine Total 750 ml 1100 ml 450 ml Chest Tube Drainage Total 100 ml 80 ml # Bowel Movements 0 0 (Yudy oSriano MD R1) Result Diagram: 02/23/17 0345 02/23/17 0345 Imaging Last 24 hours Impressions Chest X-Ray 02/23/17 0600 Signed Impressions: Service Date/Time: Thursday, February 23, 2017 03:57 - CONCLUSION: 1. Stable bibasilar airspace disease. 2. Stable cardiomegaly Chepe Smith MD Chest X-Ray 02/22/17 1330 Signed Impressions: Service Date/Time: February 14:06 - CONCLUSION: 1. Perihilar streakiness consistent with mild pulmonary vascular congestion, atelectasis and/or developing infiltrates. Clinical correlation is recommended. 2. Cardiomegaly. 3. No evidence of pneumothorax. Hamzah Mcrae MD Objective Remarks GENERAL: Sitting in chair at bedside with a face mask. no acute distress SKIN: Warm and dry. Chest incision C/D/I CARDIOVASCULAR: Regular rate and rhythm. RESPIRATORY: No accessory muscle use. CTAB. Decreased breath sounds. GASTROINTESTINAL: Abdomen soft, non-tender, nondistended. MUSCULOSKELETAL: Extremities without clubbing, cyanosis, or edema. No obvious deformities. NEUROLOGICAL: Awake and alert. No obvious cranial nerve deficits. Normal speech. PSYCHIATRIC: Appropriate mood and affect; insight and judgment normal. Procedures Cardiac catheterization 02/17/17 CABG 02/20/17 (Yudy Soriano MD R1) A/P Assessment and Plan 56 year old female with DM2 and HTN who came into the ED complaining of chest tightness. She has had chest tightness for 3 month, had an abnormal nuclear stress test and had a cardiac catheterization with stent scheduled for 02/16/17 which was cancelled when she changed cardiologists. Continues to have severe chest tightness and shortness of breath during minimal physical activity upon admission. Cardiac Cath 02/17/17 - 90% occlusion of the circumflex, RCA, distal left main and 80-90% occlusion of the LAD. S/p CABG on 02/20. Discharge Planning Pending post-op CABG recovery and CTS clearance (Yudy Soriano MD R1) Attending Attestation Patient seen and examined. Case reviewed and discussed with the resident team. Agree with plan of care as discussed with me and documented in the resident note. (Reyes Al MD) Problem List: (1) CAD (coronary artery disease) Status: Acute Plan: 3 months of chest pain, worsening, had a scheduled cath with stent on which was cancelled after changing cardiologists. S/p cath, results below, s/p CABG POD#1 from CABG -Cardiology consulted-appreciate recommendations -Cardiac Cath 02/17/17 - 90% occlusion of the circumflex, RCA, distal left main and 80-90% occlusion of the LAD. -CT surgery consulted for CABG -CABG performed on 02/20/17 -Post-op management per CTS -ASA -Amlodipine 2.5mg daily -Amiodarone (2) Dyspnea Status: Acute Plan: Shortness of breath improving. Temp of 100.3F at 0700 yesterday. WBCs trending down to 16.1. Pt did get steroids post-op. Likely atelectasis. -Chest XR on yesterday: Perihilar streakiness consistent with mild pulmonary vascular congestion, atelectasis and/or developing infiltrates. Clinical correlation is recommended -Chest XR this morning: Stable bibasilar airspace disease. -aggressive pulmonary toilet -Was placed on bipap by CT surg yesterday with improvements in O2 sat -Symbicort and Singulair added by CT surg -blood cultures drawn (3) Diabetes mellitus type 2 in obese Status: Acute Plan: Held home medications. A1c of 10.2. Will need f/u of insulin and DM control - Low dose sliding scale insulin (4) Benign hypertension Status: Chronic Plan: Continue home meds -Lisinopril 40mg daily (5) FEN Status: Acute Plan: Fluids: IV fluids, per CTS Electrolytes: Monitor and correct as needed Nutrition: Heart healthy DVT ppx: per CTS (Yudy Soriano MD R1) Problem Qualifiers (1) CAD (coronary artery disease): Qualified Code: I25.110 - Coronary artery disease involving [place] coronary artery of [place] heart with unstable angina pectoris (2) Dyspnea: Qualified Code: R06.02 - Shortness of breath Yudy Soriano MD R1 Feb 23, 2017 10:10 Reyes Al MD Feb 23, 2017 11:32
[2017-02-23] MEDS ORDERED: BUDESONIDE-FORMOTEROL 160/4.5 MCG INHALER INH SCH (11:00)
[2017-02-23] MEDS ORDERED: ENOXAPARIN SODIUM 30 MG/0.3 ML SYRINGE SQ SCH (14:30)
--- NOTE | 2017-02-23 14:55 | MB ---
cc: Cleo HERNANDEZ M.D. DATE OF CONSULTATION: 02/23/2017 HISTORY OF PRESENT ILLNESS Ms. Cruz is a 56-year-old black female with a history of hypertension and type 2 diabetes, who presented with increasing chest pain over the last several months. She was found to have significant coronary disease and underwent a coronary bypass on February 21. In the postoperative period they have had difficulty maintaining adequate saturations. She is currently on a partial non-rebreather. Chest x-ray reveals basilar atelectasis bilateral and pulmonary function prior to surgery was restricted with an FEV-1 and FVC of about 40-45%. She has had no significant prior pulmonary history. No history of asthma. She never smoked. There is no evidence of recurrent pneumonia. The restriction is probably due to obesity. She had lower extremity Dopplers on presentation which were negative for DVT. She is really experiencing very few symptoms, minimal pain at the incision site. She has had no pleuritic pain. Reasonably good cooperation with coughing and deep breathing. No purulent sputum. No fever. PAST MEDICAL HISTORY 1. Hypertension. 2. Diabetes. No prior history of thromboembolic disease. PAST SURGICAL HISTORY Previous total hysterectomy. ALLERGIES No known allergies. SOCIAL HISTORY She works here at the hospital. She has never smoked. There is no alcohol use. She has a very distant use of some cocaine and marijuana as a young adult, none for over 30 years. REVIEW OF SYSTEMS As noted above. PHYSICAL EXAMINATION GENERAL: No acute distress. VITAL SIGNS: Afebrile. Pulse 90, respirations 18-22. She walked earlier with physical therapy. Blood pressure 113/75. Sat 92-94% on a partial non-rebreather. HEENT: Sclera anicteric. NECK: Neck veins are flat. CHEST: Diminished at the bases but otherwise clear. HEART: Regular rhythm. No harsh murmur. ABDOMEN: Obese but soft. EXTREMITIES: No peripheral edema or calf tenderness. Laboratory White count 16,000, hemoglobin 11. BUN 25 with creatinine of 1. DISCUSSION Ms. Cruz has hypoxemia post bypass, really seems to be in good fluid balance. Chest x-rays revealed basilar atelectasis, probably from her immobility and obesity. There is no preexisting pulmonary disease. I would suggest continuing the EzPAP. Add Atrovent twice a day to help mobilize secretions. Continue physical therapy with active mobilization an use BiPAP at night for sleep and during the day only as needed for hypoxemia. Also, if cardiovascular surgery has no objection Lovenox 30 mg subcutaneously daily prophylactically to prevent thromboembolic disease. Thank you for asking me to see her with you in consultation. Further diagnostic and/or therapeutic intervention will depend on her ongoing clinical course. I would also mention that I did discontinue Symbicort and Singulair as there is no prior history of obstructive disease or asthma. R. Carl Hernandez MD RSIan/BT /2:29 PM /2:39 PM
[2017-02-23] MEDS: SENNOSIDES 8.6 MG TAB PO SCH (21:00)
[2017-02-23] MEDS ORDERED: MONTELUKAST SODIUM 10 MG TAB PO SCH (21:00)
[2017-02-23] MEDS: RESP: IPRATROPIUM 0.5 MG/2.5 ML NEB NEB SCH (21:10)
[2017-02-23] MEDS: ATORVASTATIN 80 MG TAB PO SCH (21:30)
[2017-02-24] VITALS (15 sets, daily range): BP systolic 109–120; BP diastolic 60–83; PULSE 82–100; RESP 15–24; TEMP 98.1–99.2; O2SAT 94–98
[2017-02-24] MEDS: INSULIN ASPART SUPPLEMENTAL SCALE SQ SCH ×6 (01:55→21:04)
[2017-02-24 04:38] LABS: HEMATOCRIT 32.2 % (35.0-46.0); MEAN CELL VOLUME 79.4 FL (80.0-100.0); MEAN CORPUSCULAR HEMOGLOBIN 26.3 PG (27.0-34.0); MEAN CORPUSCULAR HGB CONC 33.2 % (32.0-36.0); PLATELET COUNT 186 TH/MM3 (150-450); RED BLOOD COUNT 4.06 MIL/MM3 (4.00-5.30); RED CELL DISTRIBUTION WIDTH 14.3 % (11.6-17.2); REVIEW FLAG FINAL; WHITE BLOOD COUNT 15.6 TH/MM3 (4.0-11.0)
[2017-02-24] MEDS: CYCLOBENZAPRINE HCL 10 MG TAB PO PRN ×2 (05:38→20:25)
[2017-02-24] MEDS: PANTOPRAZOLE SOD 40 MG DELAYED RELEASE TAB PO SCH (05:38)
[2017-02-24] MEDS: glipiZIDE 5 MG TAB PO SCH ×2 (08:00→16:52)
[2017-02-24] MEDS: SODIUM CHLORIDE 0.9% FLUSH 10 ML FLUSH IV FLUSH SCH ×2 (08:36→21:02)
[2017-02-24] MEDS: METOPROLOL TARTRATE 25 MG TAB PO SCH ×2 (08:36→21:01)
[2017-02-24] MEDS: FUROSEMIDE 40 MG/4 ML VIAL IV PUSH SCH ×2 (08:36→18:18)
[2017-02-24] MEDS: POLYETHYLENE GLYCOL 17 GM PKG PO SCH (08:37)
[2017-02-24] MEDS: MULTIVITAMINS/MINERALS THERAPEUTIC TAB PO SCH (08:37)
[2017-02-24] MEDS: AMIODARONE 200 MG TAB PO SCH ×2 (08:37→21:00)
[2017-02-24] MEDS: MAGNESIUM HYDROXIDE SUSP 30 ML CUP PO SCH (08:37)
[2017-02-24] MEDS: DOCUSATE SODIUM 100 MG CAP PO SCH ×2 (08:38→21:00)
[2017-02-24] MEDS: ASPIRIN 81 MG CHEW TAB PO SCH (08:38)
[2017-02-24] MEDS: RESP: IPRATROPIUM 0.5 MG/2.5 ML NEB NEB SCH ×2 (09:20→20:26)
--- NOTE | 2017-02-24 09:57 | PD.CAR.PN ---
CVT Progress Note Subjective/Hospital Course: 56/ black female presented to ED with chest pain / ruled in for NSTEMI, underwent heart cath showing multivessel disease/ LM 80-90% EF 50% . PMH: obesity BMI 42/ DM on oral glipizide, HTN scheduled for surgery in am , currently pain free 02/21/17 doing well this morning. no complaints. 02/22 pt had low grade temp last night , now requiring 100% NRB mask to maintain sat > 92% will place on intermittent Bipap during day and at night chest tubes dc without difficulty , post CXr pending WBC 20K , did receive steroids in OR needs aggressive pulm toileting OOB ambulate 02/23 was on B[place] last pm total of 4 hrs, sats high 90's with Bipap 92/93% with 100% NRB, desats with ambulation / poor 02 reserve add singular, symbicort 02/24 Clinically stable On high oxygen requirements. Appreciate Dr. Jo's input Continue diuresis and pulmonary toiletry Keep in ICU Objective: Vital Signs Date Time Temp Pulse Resp B/P Pulse Ox O2 Delivery O2 Flow Rate FiO2 02/24/17 09:20 95 Partial Rebreather 12.00 02/24/17 08:00 98.1 96 20 118/78 97 02/24/17 08:00 96 Non-Rebreather 15.00 02/24/17 07:00 99 02/24/17 03:11 82 02/24/17 03:07 98.5 82 24 120/83 97 02/24/17 03:07 97 Bi-Pap 90 02/24/17 02:04 95 90 02/24/17 02:03 98 Bi-Pap 90 02/24/17 00:08 86 02/23/17 23:25 94 Non-Rebreather 15.00 100 02/23/17 23:20 87 22 102/66 94 02/23/17 21:50 95 Bi-Pap 90 02/23/17 21:42 95 90 02/23/17 21:11 95 Non-Rebreather 15.00 02/23/17 19:45 94 Non-Rebreather 15.00 100 02/23/17 19:45 99.4 100 22 112/66 94 02/23/17 19:00 103 02/23/17 17:00 94 100 02/23/17 15:00 98 02/23/17 15:00 98.7 98 22 110/70 95 02/23/17 14:39 93 Bi-Pap 100 02/23/17 14:35 92 100 02/23/17 13:00 92 Partial Non-Rebreather 12.00 02/23/17 11:00 98.6 92 20 113/75 92 02/23/17 11:00 90 02/23/17 10:14 98 Partial Rebreather 15.00 Labs: Laboratory Tests Test 02/24/17 04:22 White Blood Count 15.6 TH/MM3 (4.0-11.0) Red Blood Count 4.06 MIL/MM3 (4.00-5.30) Hemoglobin 10.7 GM/DL (11.6-15.3) Hematocrit 32.2 % (35.0-46.0) Mean Corpuscular Volume 79.4 FL (80.0-100.0) Mean Corpuscular Hemoglobin 26.3 PG (27.0-34.0) Mean Corpuscular Hemoglobin 33.2 % Concent (32.0-36.0) Red Cell Distribution Width 14.3 % (11.6-17.2) Platelet Count 186 TH/MM3 (150-450) Mean Platelet Volume 8.6 FL (7.0-11.0) Result Diagram: 02/24/17 0422 02/23/17 0345 (1) CAD (coronary artery disease) Plan: on ASA, stain , BB diuresis OOB pulm toileting nebs ezpap acapella atelectasis/ add Bipap (2) NSTEMI (non-ST elevated myocardial infarction) (3) Obesity (4) Diabetes mellitus type 2 in obese Plan: insulin sliding scale / re-add glipizide diabetic diet (5) Benign hypertension Problem Qualifiers (1) CAD (coronary artery disease): Qualified Code: I25.110 - Coronary artery disease involving [place] coronary artery of [place] heart with unstable angina pectoris (2) Obesity: Ananya Stark MD Feb 24, 2017 09:57
--- NOTE | 2017-02-24 10:23 | HHI.FPPN ---
Subjective Remarks Patient seen and examined this morning. No acute events overnight. Patient reports feeling improved this morning. Patient reports breathing improved. No chest pain. Requiring continuous oxygen overnight and this morning. Otherwise, no other concerns/complaints. (Gus Alarcon MD, R2) Objective Vitals Vital Signs Date Time Temp Pulse Resp B/P Pulse Ox O2 Delivery O2 Flow Rate FiO2 02/24/17 09:20 95 Partial Rebreather 12.00 02/24/17 08:00 98.1 96 20 118/78 97 02/24/17 08:00 96 Non-Rebreather 15.00 02/24/17 07:00 99 02/24/17 03:11 82 02/24/17 03:07 98.5 82 24 120/83 97 02/24/17 03:07 97 Bi-Pap 90 02/24/17 02:04 95 90 02/24/17 02:03 98 Bi-Pap 90 02/24/17 00:08 86 02/23/17 23:25 94 Non-Rebreather 15.00 100 02/23/17 23:20 87 22 102/66 94 02/23/17 21:50 95 Bi-Pap 90 02/23/17 21:42 95 90 02/23/17 21:11 95 Non-Rebreather 15.00 02/23/17 19:45 94 Non-Rebreather 15.00 100 02/23/17 19:45 99.4 100 22 112/66 94 02/23/17 19:00 103 02/23/17 17:00 94 100 02/23/17 15:00 98 02/23/17 15:00 98.7 98 22 110/70 95 02/23/17 14:39 93 Bi-Pap 100 02/23/17 14:35 92 100 02/23/17 13:00 92 Partial Non-Rebreather 12.00 02/23/17 11:00 98.6 92 20 113/75 92 02/23/17 11:00 90 I/O 02/23/17 02/23/17 02/23/17 02/24/17 02/24/17 02/24/17 07:00 15:00 23:00 07:00 15:00 23:00 Intake Total 480 ml 360 ml 240 ml Output Total 450 ml 900 ml 650 ml Balance 30 ml -540 ml -410 ml Intake Oral 480 ml 360 ml 240 ml Output Urine Total 450 ml 900 ml 650 ml # Bowel Movements 0 1 (Gus Alarcon MD, R2) Result Diagram: 02/24/17 0422 02/23/17 0345 Objective Remarks GENERAL: Sitting in chair at bedside with a face mask. no acute distress SKIN: Warm and dry. Chest incision C/D/I CARDIOVASCULAR: Regular rate and rhythm. RESPIRATORY: No accessory muscle use. CTAB. Decreased breath sounds. GASTROINTESTINAL: Abdomen soft, non-tender, nondistended. MUSCULOSKELETAL: Extremities without clubbing, cyanosis, or edema. No obvious deformities. NEUROLOGICAL: Awake and alert. No obvious cranial nerve deficits. Normal speech. PSYCHIATRIC: Appropriate mood and affect; insight and judgment normal. Procedures Cardiac catheterization 02/17/17 CABG 02/20/17 (Gus Alarcon MD, R2) A/P Assessment and Plan 56 year old female with DM2 and HTN who came into the ED complaining of chest tightness. She has had chest tightness for 3 month, had an abnormal nuclear stress test and had a cardiac catheterization with stent scheduled for 02/16/17 which was cancelled when she changed cardiologists. Continues to have severe chest tightness and shortness of breath during minimal physical activity upon admission. Cardiac Cath 02/17/17 - 90% occlusion of the circumflex, RCA, distal left main and 80-90% occlusion of the LAD. S/p CABG on 02/20. Discharge Planning Pending post-op CABG recovery and CTS clearance (Gus Alarcon MD, R2) Attending Attestation Patient seen and examined. Case reviewed and discussed with the resident team. Agree with plan of care as discussed with me and documented in the resident note. (Reyes Al MD) Problem List: (1) CAD (coronary artery disease) Status: Acute Plan: 3 months of chest pain, worsening, had a scheduled cath with stent on which was cancelled after changing cardiologists. S/p cath, results below, s/p CABG POD#4 from CABG -Cardiology consulted-appreciate recommendations -Cardiac Cath 02/17/17 - 90% occlusion of the circumflex, RCA, distal left main and 80-90% occlusion of the LAD. -CT surgery consulted for CABG -CABG performed on 02/20/17 -Post-op management per CTS -Pulmonary toileting -ASA, statin , beta ck (2) Dyspnea Status: Acute Plan: Shortness of breath improving. Likely atelectasis. Chest XR (02/22): Perihilar streakiness consistent with mild pulmonary vascular congestion, atelectasis and/or developing infiltrates. Clinical correlation is recommended Chest XR (02/23): Stable bibasilar airspace disease. -Pulmonology consulted-appreciate recs -Likely related to obesity -Atrovent BID -EzPAP and BiPAP -Aggressive pulmonary toilet -Oxygen as needed (3) Diabetes mellitus type 2 in obese Status: Acute Plan: Held home medications. A1c of 10.2. Will need f/u of insulin and DM control - Low dose sliding scale insulin (4) Benign hypertension Status: Chronic Plan: Well-controlled -See plan above for meds (5) FEN Status: Acute Plan: Fluids: IV fluids, per CTS Electrolytes: Monitor and correct as needed Nutrition: Heart healthy DVT ppx: per CTS (Gus Alarcon MD, R2) Problem Qualifiers (1) CAD (coronary artery disease): (2) Dyspnea: Gus Alarcon MD, R2 Feb 24, 2017 10:23 Reyes Al MD Feb 27, 2017 09:04
[2017-02-24] MEDS: ENOXAPARIN SODIUM 30 MG/0.3 ML SYRINGE SQ SCH (17:49)
[2017-02-24] MEDS: ATORVASTATIN 80 MG TAB PO SCH (21:00)
[2017-02-24] MEDS: SENNOSIDES 8.6 MG TAB PO SCH (21:00)
[2017-02-25] VITALS (13 sets, daily range): BP systolic 94–147; BP diastolic 59–87; PULSE 81–101; RESP 15–20; TEMP 98–99.2; O2SAT 94–97
[2017-02-25 02:54] LABS: HEMATOCRIT 32.7 % (35.0-46.0); MEAN CELL VOLUME 79.5 FL (80.0-100.0); MEAN CORPUSCULAR HEMOGLOBIN 25.5 PG (27.0-34.0); PLATELET COUNT 230 TH/MM3 (150-450); RED BLOOD COUNT 4.12 MIL/MM3 (4.00-5.30); RED CELL DISTRIBUTION WIDTH 14.7 % (11.6-17.2); REVIEW FLAG FINAL; WHITE BLOOD COUNT 13.7 TH/MM3 (4.0-11.0)
[2017-02-25] MEDS: PANTOPRAZOLE SOD 40 MG DELAYED RELEASE TAB PO SCH (05:37)
[2017-02-25] MEDS: INSULIN ASPART SUPPLEMENTAL SCALE SQ SCH ×4 (06:18→21:37)
[2017-02-25] MEDS: glipiZIDE 5 MG TAB PO SCH ×2 (08:00→16:37)
[2017-02-25] MEDS: ASPIRIN 81 MG CHEW TAB PO SCH (09:00)
[2017-02-25] MEDS: MAGNESIUM HYDROXIDE SUSP 30 ML CUP PO SCH (09:00)
[2017-02-25] MEDS: FUROSEMIDE 40 MG/4 ML VIAL IV PUSH SCH ×2 (09:00→18:05)
[2017-02-25] MEDS: POLYETHYLENE GLYCOL 17 GM PKG PO SCH (09:00)
[2017-02-25] MEDS: MULTIVITAMINS/MINERALS THERAPEUTIC TAB PO SCH (09:00)
[2017-02-25] MEDS: METOPROLOL TARTRATE 25 MG TAB PO SCH ×2 (09:00→21:36)
[2017-02-25] MEDS: DOCUSATE SODIUM 100 MG CAP PO SCH ×2 (09:00→21:35)
[2017-02-25] MEDS: AMIODARONE 200 MG TAB PO SCH ×2 (09:00→21:36)
[2017-02-25] MEDS: SODIUM CHLORIDE 0.9% FLUSH 10 ML FLUSH IV FLUSH SCH ×2 (09:00→21:35)
--- NOTE | 2017-02-25 13:07 | HHI.FPPN ---
Subjective Remarks Patient seen and examined this morning. No acute events overnight. She reports feeling improved today. States her breathing is improved. Otherwise, denies any other complaints/concerns. (Gus Alarcon MD, R2) Objective Vitals Vital Signs Date Time Temp Pulse Resp B/P (MAP) Pulse Ox O2 Delivery O2 Flow Rate FiO2 02/25/17 03:50 95 High Flow Nasal Cannula 35.00 70 02/25/17 03:46 94 Nasal Cannula 70 02/25/17 03:46 94 02/25/17 03:46 98.0 94 15 116/72 (87) 94 02/25/17 00:24 94 50 02/24/17 23:20 98.6 85 15 109/69 (82) 94 02/24/17 23:20 94 Nasal Cannula 60 02/24/17 23:20 82 02/24/17 20:27 98 High Flow Nasal Cannula 35.00 80 02/24/17 20:00 60 02/24/17 19:41 99.2 100 18 110/60 (77) 94 02/24/17 19:41 94 Non-Rebreather 12.00 02/24/17 19:00 100 02/24/17 16:45 98.7 96 20 110/60 (77) 96 02/24/17 16:45 96 Non-Rebreather 12.00 I/O 02/24/17 02/24/17 02/24/17 02/25/17 02/25/17 02/25/17 07:00 15:00 23:00 07:00 15:00 23:00 Intake Total 240 ml 720 ml 480 ml Output Total 650 ml 600 ml 1600 ml Balance -410 ml 120 ml -1120 ml Intake Oral 240 ml 720 ml 480 ml Output Urine Total 650 ml 600 ml 1600 ml # Voids 4 # Bowel Movements 1 2 0 (Gus Alarcon MD, R2) Result Diagram: 02/25/17 0226 02/23/17 0345 Objective Remarks GENERAL: Sitting in chair at bedside with a face mask. no acute distress SKIN: Warm and dry. Chest incision C/D/I CARDIOVASCULAR: Regular rate and rhythm. RESPIRATORY: No accessory muscle use. CTAB. Decreased breath sounds. GASTROINTESTINAL: Abdomen soft, non-tender, nondistended. MUSCULOSKELETAL: Extremities without clubbing, cyanosis, or edema. No obvious deformities. NEUROLOGICAL: Awake and alert. Normal speech. PSYCHIATRIC: Appropriate mood and affect; insight and judgment normal. Procedures Cardiac catheterization 02/17/17 CABG 02/20/17 (Gus Alarcon MD, R2) A/P Assessment and Plan 56 year old female with DM2 and HTN who came into the ED complaining of chest tightness. She has had chest tightness for 3 month, had an abnormal nuclear stress test and had a cardiac catheterization with stent scheduled for 02/16/17 which was cancelled when she changed cardiologists. Continues to have severe chest tightness and shortness of breath during minimal physical activity upon admission. Cardiac Cath 02/17/17 - 90% occlusion of the circumflex, RCA, distal left main and 80-90% occlusion of the LAD. S/p CABG on 02/20. Discharge Planning Pending post-op CABG recovery and CTS clearance (Gus Alarcon MD, R2) Attending Attestation Patient seen and examined. Case reviewed and discussed with the resident team. Agree with plan of care as discussed with me and documented in the resident note. (Reyes Al MD) Problem List: (1) CAD (coronary artery disease) ICD Codes: I25.10 - Atherosclerotic heart disease of [place] coronary artery without angina pectoris Status: Acute Plan: 3 months of chest pain, worsening, had a scheduled cath with stent on which was cancelled after changing cardiologists. S/p cath, results below, s/p CABG on 02/20/17 -Cardiology consulted-appreciate recommendations -Cardiac Cath 02/17/17 - 90% occlusion of the circumflex, RCA, distal left main and 80-90% occlusion of the LAD. -CT surgery consulted for CABG -CABG performed on 02/20/17 -Post-op management per CTS -Pulmonary toileting -ASA, statin, beta ck (2) Dyspnea ICD Codes: R06.00 - Dyspnea, unspecified Status: Acute Plan: Shortness of breath improving. Likely atelectasis. Chest XR (02/22): Perihilar streakiness consistent with mild pulmonary vascular congestion, atelectasis and/or developing infiltrates. Clinical correlation is recommended Chest XR (02/23): Stable bibasilar airspace disease. -Pulmonology consulted-appreciate recs -Likely related to obesity -Atrovent BID -EzPAP and BiPAP -Aggressive pulmonary toilet -Oxygen as needed (3) Diabetes mellitus type 2 in obese ICD Codes: E11.9 - Type 2 diabetes mellitus without complications; E66.9 - Obesity, unspecified Status: Acute Plan: Held home medications. A1c of 10.2. Will need f/u of insulin and DM control - Low dose sliding scale insulin (4) Benign hypertension ICD Codes: I10 - Benign hypertension Status: Chronic Plan: Well-controlled -See plan above for meds (5) FEN Status: Acute Plan: Fluids: IV fluids, per CTS Electrolytes: Monitor and correct as needed Nutrition: Heart healthy DVT ppx: per CTS (Gus Alarcon MD, R2) Problem Qualifiers (1) CAD (coronary artery disease): (2) Dyspnea: Gus Alarcon MD, R2 Feb 25, 2017 13:07 Reyes Al MD Feb 27, 2017 09:05
[2017-02-25] MEDS ORDERED: EPINEPHrine HCL (1:10,000) 1 MG/10 ML SYRINGE ONE (16:54)
[2017-02-25] MEDS ORDERED: IOHEXOL 350 MG/ML 10 ML VIAL (for RAD DIAG) IVCONTRAST ONE (17:38)
--- NOTE | 2017-02-25 17:51 | RADRPT ---
EXAM DATE/TIME: 02/25/2017 17:01 [facility] COMPARISON: No previous studies available for comparison. INDICATIONS : Shortness of breath status post CABG. IV CONTRAST: 73 cc Omnipaque 350 (iohexol) IV RADIATION DOSE: 22.92 CTDIvol (mGy) MEDICAL HISTORY : Hypertension. diabetes SURGICAL HISTORY : Hysterectomy. CABG ENCOUNTER: Initial ACUITY: 1 day PAIN SCALE: 5/10 LOCATION: Bilateral chest TECHNIQUE: Volumetric scanning of the chest was performed using a pulmonary embolism protocol MIP images were re constructed. Using automated exposure control and adjustment of the mA and/or kV according to patien t size, radiation dose was kept as low as reasonably achievable to obtain optimal diagnostic quality images. DICOM format image data is available electronically for review and comparison. Follow-up recommendations for detected pulmonary nodules are based at a minimum on nodule size and pa tient risk factors according to Fleischner Society Guidelines. FINDINGS: There is no evidence for PE for technique. Multinodular goiter is present with the largest nodul e on the right around 3 cm in size not adequately characterized. Bilateral parenchymal infiltrates ar e present in lower lobes, lingula and parts of the right middle lobe worse involving the lower lobes which is he appearance of dense consolidation. Small pericardial effusion is seen. CONCLUSION: Bibasilar consolidation with scattered areas of parenchymal infiltrates and no evidence for pulmonary embolus. Carlo Fisher MD on February 25, 2017 at 17:47 Board Certified Radiologist. This report was verified electronically.
[2017-02-25] MEDS: ENOXAPARIN SODIUM 30 MG/0.3 ML SYRINGE SQ SCH (18:04)
[2017-02-25] MEDS: RESP: IPRATROPIUM 0.5 MG/2.5 ML NEB NEB SCH (20:25)
[2017-02-25] MEDS: SENNOSIDES 8.6 MG TAB PO SCH (21:35)
[2017-02-25] MEDS: ATORVASTATIN 80 MG TAB PO SCH (21:36)
[2017-02-26] VITALS (10 sets, daily range): BP systolic 114–127; BP diastolic 67–78; PULSE 83–105; RESP 16–20; TEMP 97–99.2; O2SAT 91–97
[2017-02-26] MEDS: PANTOPRAZOLE SOD 40 MG DELAYED RELEASE TAB PO SCH (05:47)
[2017-02-26] MEDS: INSULIN ASPART SUPPLEMENTAL SCALE SQ SCH ×4 (07:00→20:44)
[2017-02-26] MEDS: RESP: IPRATROPIUM 0.5 MG/2.5 ML NEB NEB SCH ×2 (07:34→21:12)
[2017-02-26] MEDS: glipiZIDE 5 MG TAB PO SCH ×2 (08:00→17:11)
[2017-02-26] MEDS: METOPROLOL TARTRATE 25 MG TAB PO SCH ×2 (08:52→20:43)
[2017-02-26] MEDS: FUROSEMIDE 40 MG/4 ML VIAL IV PUSH SCH ×2 (08:52→17:10)
[2017-02-26] MEDS: AMIODARONE 200 MG TAB PO SCH ×2 (08:52→20:43)
[2017-02-26] MEDS: ASPIRIN 81 MG CHEW TAB PO SCH (08:52)
[2017-02-26] MEDS: MULTIVITAMINS/MINERALS THERAPEUTIC TAB PO SCH (08:52)
[2017-02-26] MEDS: MAGNESIUM HYDROXIDE SUSP 30 ML CUP PO SCH (08:53)
[2017-02-26] MEDS: POLYETHYLENE GLYCOL 17 GM PKG PO SCH (08:53)
[2017-02-26] MEDS: SODIUM CHLORIDE 0.9% FLUSH 10 ML FLUSH IV FLUSH SCH ×2 (08:53→20:43)
[2017-02-26] MEDS: DOCUSATE SODIUM 100 MG CAP PO SCH ×2 (08:53→20:43)
[2017-02-26] MEDS ORDERED: Vancomycin Consult Pharmacy 1 EA OTHER SCH (10:00)
[2017-02-26] MEDS: PIPERACIL-TAZO 3.375 GM PREMIX 50 ML IV SCH ×2 (12:47→17:09)
[2017-02-26] MEDS ORDERED: VANCOMYCIN INJ 1,500 MG in SODIUM CHLORID 0.9% 500 ML INJ 500 ML IV ONE (14:00)
--- NOTE | 2017-02-26 14:01 | HHI.FPPN ---
Subjective Remarks Status post CABG on 02/20/17. Patient is sitting up in chair and comfortable. She is on Venturi mask set up 40 FiO2 with 6L oxygen. She is not having any current respiratory distress and is answering our questions in complete sentences. She reports normal urination and bowel movements. She has been walking up and down the [place] with physical therapy. She reports a normal appetite. She has irritation but no pain at the sternotomy site. She reports no drainage or erythema at the sternotomy site or the venous graft site. CTA showed bibasilar consolidation and scattered areas of parenchymal infiltrates, and she was started on Vancomycin and Zosyn to cover for hospital acquired pneumonia. Her WBC is trending down and is 13.7 today. (Jerry Escobar MD R3) Objective Vitals Vital Signs Date Time Temp Pulse Resp B/P (MAP) Pulse Ox O2 Delivery O2 Flow Rate FiO2 02/26/17 11:21 98.6 92 18 127/77 (94) 91 02/26/17 11:20 90 Venturi Mask 40 02/26/17 07:39 97.0 105 20 126/78 (94) 97 02/26/17 07:37 97 Venturi Mask 50 02/26/17 07:34 95 Venturi Mask 40 02/26/17 04:15 92 6.00 50 02/26/17 03:52 98.9 91 16 117/67 (84) 97 02/26/17 03:52 97 Bi-Pap 40 02/26/17 03:52 92 02/26/17 00:05 96 60 02/25/17 23:30 97 Partial Non-Rebreather 14.00 02/25/17 23:30 81 02/25/17 23:30 98.9 82 15 94/59 (71) 97 02/25/17 20:25 95 Partial Rebreather 12.00 02/25/17 19:45 94 Nasal Cannula 55 02/25/17 19:45 99.2 98 17 147/87 (107) 94 02/25/17 19:00 98 02/25/17 15:00 98.6 95 20 143/74 (97) 95 02/25/17 15:00 95 Nasal Cannula 55 02/25/17 15:00 94 I/O 02/25/17 02/25/17 02/25/17 02/26/17 02/26/17 02/26/17 06:59 14:59 22:59 06:59 14:59 22:59 Intake Total 480 ml 600 ml 480 ml Output Total 1600 ml 1200 ml 950 ml Balance -1120 ml -600 ml -470 ml Intake Oral 480 ml 600 ml 480 ml Output Urine Total 1600 ml 1200 ml 950 ml # Bowel Movements 0 0 0 (Jerry Escobar MD R3) Result Diagram: 02/25/17 0226 02/23/17 0345 Objective Remarks GENERAL: Sitting in chair, no distress, Venturi mask in place SKIN: Venous graft site is clear, dry, and intact, no surrounding erythema, no rashes or lesions CARDIOVASCULAR: Regular rate and rhythm. RESPIRATORY: Venturi mask in place, no respiratory distress, clear to auscultation bilaterally GASTROINTESTINAL: Abdomen soft, non-tender, nondistended. MUSCULOSKELETAL: Extremities without clubbing, cyanosis, or edema. No obvious deformities. NEUROLOGICAL: Awake and alert. Normal speech. PSYCHIATRIC: Appropriate mood and affect; insight and judgment normal. Procedures Cardiac catheterization 02/17/17 CABG 02/20/17 (Jerry Escobar MD R3) A/P Assessment and Plan 56 year old female with DM2 and HTN who came into the ED complaining of chest tightness. She has had chest tightness for 3 months, had an abnormal nuclear stress test and had a cardiac catheterization with stent scheduled for 02/16/17 which was cancelled when she changed cardiologists. Continued to have severe chest tightness and shortness of breath during minimal physical activity upon admission. Cardiac Cath 02/17/17 - 90% occlusion of the circumflex, RCA, distal left main and 80-90% occlusion of the LAD. S/p CABG on 02/20. Now with hospital acquired pneumonia and on vancomycin and Zosyn. Discharge Planning Pending post-op CABG recovery, CTS clearance, improvement in pneumonia symptoms (Jerry Escobar MD R3) Attending Attestation Patient seen and examined. Case reviewed and discussed with the resident team. Agree with plan of care as discussed with me and documented in the resident note. (Reyes Al MD) Problem List: (1) Hospital-acquired pneumonia ICD Codes: J18.9 - Pneumonia, unspecified organism Status: Acute Plan: CTA showing bibasilar consolidation and scattered parenchymal infiltrates , treating empirically for hospital acquired pneumonia. Having coughing with sputum production. White count is trending down. No fevers overnight. - Vancomycin and Zosyn started on 02/26 - Encourage incentive spirometry/resp acapella - O2 monitoring and supplementation, currently on Venturi mask - Atrovent 0.5 mg bid via nebulizer - Lasix 40 mg IV bid for diuresis - Pulmonology consulted (2) CAD (coronary artery disease) ICD Codes: I25.10 - Atherosclerotic heart disease of [place] coronary artery without angina pectoris Status: Acute Plan: 3 months of chest pain, worsening, had a scheduled cath with stent on which was cancelled after changing cardiologists. S/p cath, results below, s/p CABG on 02/20/17 -Cardiology consulted-appreciate recommendations -Cardiac Cath 02/17/17 - 90% occlusion of the circumflex, RCA, distal left main and 80-90% occlusion of the LAD. -CT surgery consulted for CABG -CABG performed on 02/20/17 -Post-op management per CTS -Pulmonary toileting -ASA 81 mg daily, Atorvastatin 80 mg daily, metoprolol 12.5 mg q12hrs - Pain management: Percocet 5/325 PO q3hrs PRN for pain - Cardiac rehab as an outpatient (3) Diabetes mellitus type 2 in obese ICD Codes: E11.9 - Type 2 diabetes mellitus without complications; E66.9 - Obesity, unspecified Status: Acute Plan: Held home medications. A1c of 10.2. Will need f/u of insulin and DM control - Low dose sliding scale insulin - Glipizide 5 mg bid (4) Benign hypertension ICD Codes: I10 - Benign hypertension Status: Chronic Plan: Well-controlled -See plan above for meds (5) FEN Status: Acute Plan: Fluids: PO fluids Electrolytes: Monitor and correct as needed Nutrition: Heart healthy DVT ppx: per CTS (Jerry Escobar MD R3) Problem Qualifiers (1) CAD (coronary artery disease): Jerry Escobar MD R3 Feb 26, 2017 14:01 Reyes Al MD Feb 27, 2017 08:55
--- NOTE | 2017-02-26 16:31 | PD.CAR.PN ---
CVT Progress Note Subjective/Hospital Course: 56/ black female presented to ED with chest pain / ruled in for NSTEMI, underwent heart cath showing multivessel disease/ LM 80-90% EF 50% . PMH: obesity BMI 42/ DM on oral glipizide, HTN scheduled for surgery in am , currently pain free 02/21/17 doing well this morning. no complaints. 02/22 pt had low grade temp last night , now requiring 100% NRB mask to maintain sat > 92% will place on intermittent Bipap during day and at night chest tubes dc without difficulty , post CXr pending WBC 20K , did receive steroids in OR needs aggressive pulm toileting OOB ambulate 02/23 was on [place] last pm total of 4 hrs, sats high 90's with Bipap 92/93% with 100% NRB, desats with ambulation / poor 02 reserve add singular, symbicort 02/24 Clinically stable On high oxygen requirements. Appreciate Dr. Jo's input Continue diuresis and pulmonary toiletry Keep in ICU 02/26 remains on high flow 02, intermittent Bipap / VM leukocytosis / CT chest noted, bilateral infiltrates add Vanc and zosyn, continue aggressive pulm toileting consult Risk Control Product Liability Director CTA neg for PE, on lovenox prophylactic continue diuresis + 3 kg Objective: Vital Signs Date Time Temp Pulse Resp B/P (MAP) Pulse Ox O2 Delivery O2 Flow Rate FiO2 02/26/17 11:21 98.6 92 18 127/77 (94) 91 02/26/17 11:20 90 Venturi Mask 40 02/26/17 07:39 97.0 105 20 126/78 (94) 97 02/26/17 07:37 97 Venturi Mask 50 02/26/17 07:34 95 Venturi Mask 40 02/26/17 04:15 92 6.00 50 02/26/17 03:52 98.9 91 16 117/67 (84) 97 02/26/17 03:52 97 Bi-Pap 40 02/26/17 03:52 92 02/26/17 00:05 96 60 02/25/17 23:30 97 Partial Non-Rebreather 14.00 02/25/17 23:30 81 02/25/17 23:30 98.9 82 15 94/59 (71) 97 02/25/17 20:25 95 Partial Rebreather 12.00 02/25/17 19:45 94 Nasal Cannula 55 02/25/17 19:45 99.2 98 17 147/87 (107) 94 02/25/17 19:00 98 Labs: GENERAL: SKIN: Warm and dry. prevena to chest HEAD: Normocephalic. EYES: No scleral icterus. No injection or drainage. NECK: Supple, trachea midline. No JVD or lymphadenopathy. CARDIOVASCULAR: Regular rate and rhythm without murmurs, gallops, or rubs. mild general edema RESPIRATORY: Breath sounds equal bilaterally. No accessory muscle use. bibasilar crackles, poor cough effort GASTROINTESTINAL: Abdomen soft, non-tender, nondistended. MUSCULOSKELETAL: No cyanosis, or edema. BACK: Nontender without obvious deformity. No CVA tenderness. Result Diagram: 02/25/17 0226 02/23/17 0345 (1) CAD (coronary artery disease) Plan: on ASA, stain , BB diuresis OOB pulm toileting nebs ezpap acapella add Antibiotics (2) NSTEMI (non-ST elevated myocardial infarction) (3) Obesity (4) Diabetes mellitus type 2 in obese Plan: insulin sliding scale / re-add glipizide diabetic diet (5) Benign hypertension (6) Hospital-acquired pneumonia Plan: aggressive pulm toileting add HCAP coverage consult tumbler drier operator Problem Qualifiers (1) CAD (coronary artery disease): (2) Obesity: Concepcion Oquendo Feb 26, 2017 16:31
[2017-02-26] MEDS: ONDANSETRON HCL 4 MG/2 ML VIAL IV PUSH PRN (16:38)
[2017-02-26] MEDS: ENOXAPARIN SODIUM 30 MG/0.3 ML SYRINGE SQ SCH (17:10)
--- NOTE | 2017-02-26 20:01 | PD.CONS ---
[facility] Service Critical Care Medicine Consult Requested By Dr. Perry Reason for Consult Persistent hypoxemia Primary Care Physician Stephen Perez MD History of Present Illness This is a 56-year-old female with a past history of hypertension, diabetes who presented originally to the emergency department with intermittent chest tightness was found to have multivessel disease. She underwent CABG 4 (TSE- LAD, SVG-D1, SVG-OM1, SVG-PDA) on 02/20. Her operative course was on, gated. Postoperatively she had persistent hypoxemia requiring high FiO2 including nonrebreather, BiPAP, high flow nasal cannula, and most recently 50% Ventimask. She has no history of chronic lung disease. She does not wear oxygen at home. She is not dyspneic at home. She denies any shortness of breath at home. Chest x-rays only significant for poor respiratory effort with questionable mild pulmonary vascular congestion. She has been aggressively diuresed, and her diuresis was increased today. She denies any additional symptoms, chest pain, fever. She was started on empiric antibiotics for presumed healthcare associated pneumonia given increased lower lobe interstitial markings with rising white count. The remainder the review systems otherwise negative except for noted in the history of present illness. Review of Systems Constitutional: DENIES: Fatigue, Fever, Chills Respiratory: COMPLAINS OF: Shortness of breath, DENIES: Cough, Wheezing, Sputum production Cardiovascular: DENIES: Chest pain, Syncope, Dyspnea on Exertion, Lower Extremity Edema Gastrointestinal: DENIES: Abdominal pain, Constipation, Diarrhea, Nausea, Vomiting Past Family Social History Allergies: Coded Allergies: No Known Allergies (Verified , 12/27/16) Past Medical History HTN DM type 2 (on glipizide) CAD Past Surgical History Total hysterectomy recently s/p CABG x 4 on 02/20. Reported Medications Aspir-81 (Aspirin) 81 Mg Tabdr Lisinopril 40 Mg Tab 40 Mg PO DAILY Glipizide 10 Mg Tab 10 Mg PO DAILY Take 30 minutes before a meal (Jerry Griffith MD R1) Active Ordered Medications See MAR Family History Patient was adopted and biological family history is unknown. Social History denies tob, etoh. remote cocaine and marijuana use. Physical Exam Vital Signs Vital Signs Date Time Temp Pulse Resp B/P (MAP) Pulse Ox O2 Delivery O2 Flow Rate FiO2 02/26/17 11:21 98.6 92 18 127/77 (94) 91 02/26/17 11:20 90 Venturi Mask 40 02/26/17 07:39 97.0 105 20 126/78 (94) 97 02/26/17 07:37 97 Venturi Mask 50 02/26/17 07:34 95 Venturi Mask 40 02/26/17 04:15 92 6.00 50 02/26/17 03:52 98.9 91 16 117/67 (84) 97 02/26/17 03:52 97 Bi-Pap 40 02/26/17 03:52 92 02/26/17 00:05 96 60 02/25/17 23:30 97 Partial Non-Rebreather 14.00 02/25/17 23:30 81 02/25/17 23:30 98.9 82 15 94/59 (71) 97 02/25/17 20:25 95 Partial Rebreather 12.00 Physical Exam GENERAL: Morbidly obese female, sitting in bed, Ventimask in place HEENT: Normocephalic. Atraumatic. Pupils equal, round, reactive, conjugate. Mucous membranes are moist NECK: Trachea is midline. JVD unable to be assessed due to large neck circumference CHEST: Unlabored respirations. Equal chest rise. Clear to auscultation. Midline sternal incision with wound VAC dressing which is clean and dry. CARDIOVASCULAR: Normal Rate, regular rhythm. Sinus by telemetry. No murmurs rubs or gallops. ABDOMEN: Obese, Soft, nontender, nondistended. No guarding. MUSCULOSKELETAL: Pulses 2+. 1+ edema NEUROLOGICAL: RASS 0. GCS 15. No gross focal deficits. Laboratory Date/Time Source Procedure Growth Status 02/22/17 13:59 Blood Peripheral Aerobic Blood Culture - Preliminary NO GROWTH IN 4 DAYS Resulted 02/22/17 13:59 Blood Peripheral Anaerobic Blood Culture - Preliminary NO GROWTH IN 4 DAYS Resulted 02/23/17 11:40 Sputum Expectorated Sputum Gram Stain - Final Complete 02/23/17 11:40 Sputum Expectorated Sputum Sputum Culture - Final HEAVY GROWTH NORMAL RESPIRATORY JOSE C Complete Result Diagram: 02/25/17 0226 02/23/17 0345 Imaging Last Impressions Chest X-Ray 02/23/17 0600 Signed Impressions: Service Date/Time: Thursday, February 23, 2017 03:57 - CONCLUSION: 1. Stable bibasilar airspace disease. 2. Stable cardiomegaly Chepe Smith MD Lower Extremity Ultrasound 02/18/17 0000 Signed Impressions: Service Date/Time: Saturday, February 18, 2017 17:42 - CONCLUSION: Within normal limits. Omar Hogan MD Carotid Artery Ultrasound 02/18/17 0000 Signed Impressions: Service Date/Time: Saturday, February 18, 2017 18:05 - CONCLUSION: No evidence of hemodynamically significant carotid stenosis. Omar Hogan MD Assessment and Plan Assessment and Plan Assessment: 56-year-old female status post CABG 4 with persistent hypoxemia. Differential diagnoses would include healthcare associated pneumonia versus persistent volume overload versus obesity hypoventilation syndrome with postoperative atelectasis. Certainly agree with aggressive pulmonary toilet and incentive spirometry. Out of bed walking with physical therapy. I agree with covering empirically with antibiotics until cultures were negative, however I would recommend discontinuing about except 48 hours if cultures are negative and patient continues to improve. I think her largest improvement will be seen with aggressive forced diuresis, and I would diurese her until there is laboratory evidence of intravascular volume depletion such as creatinine bump or elevated BUN. Wean oxygen as tolerated to keep SPO2 greater than 90%. I also agree with keeping her in the ICU as she has a significantly high FiO2 requirement compared to a baseline where she wears no oxygen at home. Acute and persistent hypoxemia Post-operative Atelectasis Possible healthcare associated pneumonia Probable acute intravascular volume overload Possible Obesity Hypoventilation syndrome -- wean fio2 for spo2 > 90% -- aggressive pulmonary toilet -- agree with aggressive forced diuresis until signs of intravascular volume depletion such as elevated Cr. -- remain in ICU until fio2 decreases -- OOB with PT. -- [facility] will continue to follow along while in ICU. Wenceslao Rodriguez MD Feb 26, 2017 20:01
[2017-02-26] MEDS: ATORVASTATIN 80 MG TAB PO SCH (20:43)
[2017-02-26] MEDS: CYCLOBENZAPRINE HCL 10 MG TAB PO PRN (20:43)
[2017-02-26] MEDS: SENNOSIDES 8.6 MG TAB PO SCH (20:43)
[2017-02-26] MEDS ORDERED: FUROSEMIDE 40 MG/4 ML VIAL IV PUSH ONE (23:59)
[2017-02-27] VITALS (21 sets, daily range): BP systolic 102–127; BP diastolic 55–80; PULSE 80–100; RESP 16–22; TEMP 97.9–99.1; O2SAT 95–99
[2017-02-27] MEDS: PIPERACIL-TAZO 3.375 GM PREMIX 50 ML IV SCH ×4 (01:27→18:30)
[2017-02-27] MEDS ORDERED: VANCOMYCIN 1,000 MG/NS 250 ML IV SCH ×2 (02:00)
[2017-02-27 05:33] LABS: HEMATOCRIT 33.6 % (35.0-46.0); MEAN CELL VOLUME 80.6 FL (80.0-100.0); MEAN CORPUSCULAR HEMOGLOBIN 25.8 PG (27.0-34.0); MEAN CORPUSCULAR HGB CONC 32.1 % (32.0-36.0); PLATELET COUNT 301 TH/MM3 (150-450); RED BLOOD COUNT 4.17 MIL/MM3 (4.00-5.30); REVIEW FLAG FINAL; WHITE BLOOD COUNT 14.1 TH/MM3 (4.0-11.0)
[2017-02-27] MEDS: PANTOPRAZOLE SOD 40 MG DELAYED RELEASE TAB PO SCH (06:33)
[2017-02-27] MEDS: INSULIN ASPART SUPPLEMENTAL SCALE SQ SCH ×3 (06:34→21:25)
[2017-02-27] MEDS: RESP: IPRATROPIUM 0.5 MG/2.5 ML NEB NEB SCH ×2 (07:36→21:43)
[2017-02-27] MEDS ORDERED: VANCOMYCIN INJ 1,250 MG in SODIUM CHLOR 0.9% 250 ML INJ 250 ML IV SCH (08:00)
[2017-02-27] MEDS: glipiZIDE 5 MG TAB PO SCH (08:00)
[2017-02-27] MEDS: oxyCODONE/ACETAMINOPHEN 5 MG/325 MG TAB PO PRN ×2 (08:10→18:28)
[2017-02-27] MEDS: DOCUSATE SODIUM 100 MG CAP PO SCH ×2 (08:49→21:00)
[2017-02-27] MEDS: ASPIRIN 81 MG CHEW TAB PO SCH (08:49)
[2017-02-27] MEDS: AMIODARONE 200 MG TAB PO SCH ×2 (08:49→21:18)
[2017-02-27] MEDS: MULTIVITAMINS/MINERALS THERAPEUTIC TAB PO SCH (08:49)
[2017-02-27] MEDS: METOPROLOL TARTRATE 25 MG TAB PO SCH ×2 (08:49→21:18)
[2017-02-27] MEDS: POLYETHYLENE GLYCOL 17 GM PKG PO SCH (08:50)
[2017-02-27] MEDS: FUROSEMIDE 40 MG/4 ML VIAL IV PUSH SCH ×2 (08:50→18:31)
[2017-02-27] MEDS: MAGNESIUM HYDROXIDE SUSP 30 ML CUP PO SCH (08:50)
[2017-02-27] MEDS: SODIUM CHLORIDE 0.9% FLUSH 10 ML FLUSH IV FLUSH SCH ×2 (08:50→21:00)
--- NOTE | 2017-02-27 10:12 | HHI.FPPN ---
Subjective Remarks Patient states that she is doing well this morning in terms of her breathing. She however, is concerned about pain in her right shoulder. This pain started this morning and is worse with movement. She has decreased range of motion, so minimizes her movements. (Yudy Soriano MD R1) Objective Vitals Vital Signs Date Time Temp Pulse Resp B/P (MAP) Pulse Ox O2 Delivery O2 Flow Rate FiO2 02/27/17 08:51 18 02/27/17 07:38 96 Venturi Mask 6.00 35 02/27/17 07:29 93 02/27/17 07:29 97 Venturi Mask 50 02/27/17 07:28 97.9 93 19 117/55 (75) 97 02/27/17 03:52 86 02/27/17 03:52 97 Venturi Mask 50 02/27/17 03:52 99.0 87 16 102/64 (77) 97 02/26/17 23:42 95 Venturi Mask 50 02/26/17 23:42 83 02/26/17 23:42 98.9 84 16 115/68 (84) 95 02/26/17 21:54 94 Venturi Mask 6.00 40 02/26/17 19:36 93 Venturi Mask 50 02/26/17 19:36 99.2 98 17 114/70 (85) 92 02/26/17 19:00 99 02/26/17 15:00 91 Venturi Mask 40 02/26/17 11:21 98.6 92 18 127/77 (94) 91 02/26/17 11:20 90 Venturi Mask 40 I/O 02/26/17 02/26/17 02/26/17 02/27/17 02/27/17 02/27/17 07:00 15:00 23:00 07:00 15:00 23:00 Intake Total 480 ml 100 ml 1335 ml 580 ml 300 ml Output Total 950 ml 1550 ml 1750 ml Balance -470 ml 100 ml -215 ml -1170 ml 300 ml Intake Oral 480 ml 720 ml 480 ml IV Total 100 ml 615 ml 100 ml 300 ml Output Urine Total 950 ml 1550 ml 1750 ml # Bowel Movements 0 0 0 (Yudy Soriano MD R1) Result Diagram: 02/27/17 0525 02/23/17 0345 Objective Remarks GENERAL: Sitting in chair, no distress, nasal cannula in place SKIN: Venous graft site is clear, dry, and intact, no surrounding erythema, no rashes or lesions CARDIOVASCULAR: Regular rate and rhythm. RESPIRATORY: nasal cannula in place, no respiratory distress, clear to auscultation bilaterally GASTROINTESTINAL: Abdomen soft, non-tender, nondistended. MUSCULOSKELETAL: Extremities without clubbing, cyanosis, or edema. No obvious deformities. NEUROLOGICAL: Awake and alert. Normal speech. PSYCHIATRIC: Appropriate mood and affect; insight and judgment normal. Procedures Cardiac catheterization 02/17/17 CABG 02/20/17 (Yudy Soriano MD R1) A/P Assessment and Plan 56 year old female with DM2 and HTN who came into the ED complaining of chest tightness. She has had chest tightness for 3 months, had an abnormal nuclear stress test and had a cardiac catheterization with stent scheduled for 02/16/17 which was cancelled when she changed cardiologists. Continued to have severe chest tightness and shortness of breath during minimal physical activity upon admission. Cardiac Cath 02/17/17 - 90% occlusion of the circumflex, RCA, distal left main and 80-90% occlusion of the LAD. S/p CABG on 02/20. Now with hospital acquired pneumonia and on vancomycin and Zosyn. Discharge Planning Pending post-op CABG recovery, CTS clearance, improvement in pneumonia symptoms (Yudy Soriano MD R1) Attending Attestation Patient seen and examined. Case reviewed and discussed with the resident team. Agree with plan of care as discussed with me and documented in the resident note. (Reyes Al MD) Problem List: (1) Hospital-acquired pneumonia ICD Codes: J18.9 - Pneumonia, unspecified organism Status: Acute Plan: CTA showing bibasilar consolidation and scattered parenchymal infiltrates , treating empirically for hospital acquired pneumonia. Having coughing with sputum production. White count is trending down. No fevers overnight. - Vancomycin and Zosyn started on 02/26 - Encourage incentive spirometry/resp acapella - O2 monitoring and supplementation, currently on Venturi mask - Atrovent 0.5 mg bid via nebulizer - Lasix 40 mg IV bid for diuresis - Pulmonology consulted, appreciate recs - Critical Care consulted by CT surg, appreciate recs * aggressive forced diuresis until there is laboratory evidence of intravascular volume depletion such as creatinine bump or elevated BUN. * Wean oxygen as tolerated to keep SPO2 greater than 90%. (2) CAD (coronary artery disease) ICD Codes: I25.10 - Atherosclerotic heart disease of [place] coronary artery without angina pectoris Status: Acute Plan: 3 months of chest pain, worsening, had a scheduled cath with stent on which was cancelled after changing cardiologists. S/p cath, results below, s/p CABG on 02/20/17 -Cardiology consulted-appreciate recommendations -Cardiac Cath 02/17/17 - 90% occlusion of the circumflex, RCA, distal left main and 80-90% occlusion of the LAD. -CT surgery consulted for CABG -CABG performed on 02/20/17 -Post-op management per CTS -Pulmonary toileting -ASA 81 mg daily, Atorvastatin 80 mg daily, metoprolol 12.5 mg q12hrs - Pain management: Percocet 5/325 PO q3hrs PRN for pain - Cardiac rehab as an outpatient (3) Diabetes mellitus type 2 in obese ICD Codes: E11.9 - Type 2 diabetes mellitus without complications; E66.9 - Obesity, unspecified Status: Acute Plan: Held home medications. A1c of 10.2. Will need f/u of insulin and DM control - Low dose sliding scale insulin - Glipizide 5 mg bid (4) Benign hypertension ICD Codes: I10 - Benign hypertension Status: Chronic Plan: Well-controlled -See plan above for meds (5) FEN Status: Acute Plan: Fluids: PO fluids Electrolytes: Monitor and correct as needed Nutrition: Heart healthy DVT ppx: per CTS (Yudy Soriano MD R1) Problem Qualifiers (1) CAD (coronary artery disease): Yudy Soriano MD R1 Feb 27, 2017 10:12 Reyes Al MD Feb 28, 2017 12:58
--- NOTE | 2017-02-27 11:05 | HHI.CCPN ---
Subjective Remarks/Hospital Course Hospital Course: This is a 56-year-old female with a past history of hypertension, diabetes who presented originally to the emergency department with intermittent chest tightness was found to have multivessel disease. She underwent CABG 4 (TSE- LAD, SVG-D1, SVG-OM1, SVG-PDA) on 02/20. Her operative course was on, gated. Postoperatively she had persistent hypoxemia requiring high FiO2 including nonrebreather, BiPAP, high flow nasal cannula, and most recently 50% Ventimask. She has no history of chronic lung disease. She does not wear oxygen at home. She is not dyspneic at home. She denies any shortness of breath at home. Chest x-rays only significant for poor respiratory effort with questionable mild pulmonary vascular congestion. She has been aggressively diuresed, and her diuresis was increased today. She denies any additional symptoms, chest pain, fever. She was started on empiric antibiotics for presumed healthcare associated pneumonia given increased lower lobe interstitial markings with rising white count. The remainder the review systems otherwise negative except for noted in the history of present illness. Subjective: 02/27: feeling much better. clinically improving. down to 6L NC. diuresed very well overnight. subjectively she feels much better. out of bed to chair this morning. she does complain of right shoulder pain, worse with movement. a new problem for her. subjectively she states it feels musculoskeletal to her. PT to eval today. Objective Vital Signs Date Time Temp Pulse Resp B/P (MAP) Pulse Ox O2 Delivery O2 Flow Rate FiO2 02/27/17 08:51 18 02/27/17 07:38 96 Venturi Mask 6.00 35 02/27/17 07:29 93 02/27/17 07:28 97.9 117/55 (75) Intake and Output 02/27/17 02/27/17 02/28/17 08:00 16:00 00:00 Intake Total 630 ml 250 ml Output Total 1750 ml Balance -1120 ml 250 ml Result Diagram: 02/27/17 0525 02/23/17 0345 Imaging Last Impressions Chest X-Ray 02/23/17 0600 Signed Impressions: Service Date/Time: Thursday, February 23, 2017 03:57 - CONCLUSION: 1. Stable bibasilar airspace disease. 2. Stable cardiomegaly Chepe Smiht MD Lower Extremity Ultrasound 02/18/17 0000 Signed Impressions: Service Date/Time: Saturday, February 18, 2017 17:42 - CONCLUSION: Within normal limits. Oamr Hogan MD Carotid Artery Ultrasound 02/18/17 0000 Signed Impressions: Service Date/Time: Saturday, February 18, 2017 18:05 - CONCLUSION: No evidence of hemodynamically significant carotid stenosis. Omar Hogan MD Objective Remarks GENERAL: Morbidly obese female, sitting in bed, NC in place. HEENT: Normocephalic. Atraumatic. Pupils equal, round, reactive, conjugate. Mucous membranes are moist NECK: Trachea is midline. JVD unable to be assessed due to large neck circumference CHEST: Unlabored respirations. Equal chest rise. Clear to auscultation. Midline sternal incision with wound VAC dressing which is clean and dry. CARDIOVASCULAR: Normal Rate, regular rhythm. Sinus by telemetry. No murmurs rubs or gallops. ABDOMEN: Obese, Soft, nontender, nondistended. No guarding. MUSCULOSKELETAL: Pulses 2+. 1+ edema NEUROLOGICAL: RASS 0. GCS 15. No gross focal deficits. A/P Assessment and Plan Assessment: 56-year-old female status post CABG 4 with persistent hypoxemia. Most likely secondary to volume overload. Now clinically improving. Would recommend continuing empiric abx for a total of 48h and if clinically stable either de-escalating to Levaqin x 5 more days (total 7 day course), or discontinue altogether. Agree with transition to step-down or floor status. Acute and persistent hypoxemia- improving. Post-operative Atelectasis Possible healthcare associated pneumonia Probable acute intravascular volume overload Possible Obesity Hypoventilation syndrome -- wean fio2 for spo2 > 90% -- aggressive pulmonary toilet -- agree with aggressive forced diuresis until signs of intravascular volume depletion such as elevated Cr. -- repeat BMP today. -- transition to CIC -- discussed with CT surgery service OT consult vs. possible xray films of shoulder depending on clinical course. -- OOB with PT. -- continue full 24h of diamox. could consider a second 24h of diamox. -- would plan for at least another net negative 1-2L/24h. -- [facility] will sign-off. Please re-consult as needed Wenceslao Rodriguez MD Feb 27, 2017 11:05
--- NOTE | 2017-02-27 11:07 | PD.CAR.PN ---
CVT Progress Note Subjective/Hospital Course: 56/ black female presented to ED with chest pain / ruled in for NSTEMI, underwent heart cath showing multivessel disease/ LM 80-90% EF 50% . PMH: obesity BMI 42/ DM on oral glipizide, HTN scheduled for surgery in am , currently pain free 02/21/17 doing well this morning. no complaints. 02/22 pt had low grade temp last night , now requiring 100% NRB mask to maintain sat > 92% will place on intermittent Bipap during day and at night chest tubes dc without difficulty , post CXr pending WBC 20K , did receive steroids in OR needs aggressive pulm toileting OOB ambulate 02/23 was on B[place] last pm total of 4 hrs, sats high 90's with Bipap 92/93% with 100% NRB, desats with ambulation / poor 02 reserve add singular, symbicort 02/24 Clinically stable On high oxygen requirements. Appreciate Dr. Jo's input Continue diuresis and pulmonary toiletry Keep in ICU 02/26 remains on high flow 02, intermittent Bipap / VM leukocytosis / CT chest noted, bilateral infiltrates add Vanc and zosyn, continue aggressive pulm toileting consult Fur Blowing Machine Attendant CTA neg for PE, on lovenox prophylactic continue diuresis + 3 kg 02/27 now on 6liter nasal cannula / on Bipap at night WBC 14K, no fever, appreciate Fur Blowing Machine Attendant input/ on Diamox x 3 doses - 1285/24 hrs / BC neg to date, sputum neg continue vanc and Zosyn until am , then change to po levaquin x 5 days continue pulm toileting ambulation, will transfer to stepdown continue diabetic meds transfer to stepdown Objective: GENERAL: SKIN: Warm and dry. prevena dressing to chest , incision intact to leg HEAD: Normocephalic. EYES: No scleral icterus. No injection or drainage. NECK: Supple, trachea midline. No JVD or lymphadenopathy. CARDIOVASCULAR: Regular rate and rhythm without murmurs, gallops, or rubs. RESPIRATORY: Breath sounds equal bilaterally. No accessory muscle use. few crackles in bases GASTROINTESTINAL: Abdomen soft, non-tender, nondistended. MUSCULOSKELETAL: No cyanosis, or edema. BACK: Nontender without obvious deformity. No CVA tenderness. Vital Signs Date Time Temp Pulse Resp B/P (MAP) Pulse Ox O2 Delivery O2 Flow Rate FiO2 02/27/17 08:51 18 02/27/17 07:38 96 Venturi Mask 6.00 35 02/27/17 07:29 93 02/27/17 07:29 97 Venturi Mask 50 02/27/17 07:28 97.9 93 19 117/55 (75) 97 02/27/17 03:52 86 02/27/17 03:52 97 Venturi Mask 50 02/27/17 03:52 99.0 87 16 102/64 (77) 97 02/26/17 23:42 95 Venturi Mask 50 02/26/17 23:42 83 02/26/17 23:42 98.9 84 16 115/68 (84) 95 02/26/17 21:54 94 Venturi Mask 6.00 40 02/26/17 19:36 93 Venturi Mask 50 02/26/17 19:36 99.2 98 17 114/70 (85) 92 02/26/17 19:00 99 02/26/17 15:00 91 Venturi Mask 40 02/26/17 11:21 98.6 92 18 127/77 (94) 91 02/26/17 11:20 90 Venturi Mask 40 Labs: Laboratory Tests Test 02/27/17 05:25 White Blood Count 14.1 TH/MM3 (4.0-11.0) Red Blood Count 4.17 MIL/MM3 (4.00-5.30) Hemoglobin 10.8 GM/DL (11.6-15.3) Hematocrit 33.6 % (35.0-46.0) Mean Corpuscular Volume 80.6 FL (80.0-100.0) Mean Corpuscular Hemoglobin 25.8 PG (27.0-34.0) Mean Corpuscular Hemoglobin Concent 32.1 % (32.0-36.0) Red Cell Distribution Width 14.0 % (11.6-17.2) Platelet Count 301 TH/MM3 (150-450) Mean Platelet Volume 8.2 FL (7.0-11.0) Result Diagram: 02/27/17 0525 02/23/17 0345 Telemetry: NSR (1) CAD (coronary artery disease) Plan: on ASA, stain , BB diuresis / diamox OOB pulm toileting nebs ezpap acapella Antibiotics (2) NSTEMI (non-ST elevated myocardial infarction) (3) Obesity (4) Diabetes mellitus type 2 in obese Plan: insulin sliding scale / re-add glipizide diabetic diet (5) Benign hypertension (6) Hospital-acquired pneumonia Plan: aggressive pulm toileting HCAP coverage Problem Qualifiers (1) CAD (coronary artery disease): (2) Obesity: Concepcion Oquendo Feb 27, 2017 11:06
[2017-02-27 13:30] LABS: BICARBONATE 30.1 MEQ/L (21.0-32.0); POTASSIUM 3.1 MEQ/L (3.5-5.1)
[2017-02-27] MEDS: POTASSIUM CHLORIDE 10 MEQ CONTROLLED RELEASE TAB PO SCH ×2 (16:00→21:18)
[2017-02-27] MEDS: glipiZIDE 10 MG TAB PO SCH (17:00)
[2017-02-27] MEDS: ENOXAPARIN SODIUM 30 MG/0.3 ML SYRINGE SQ SCH (18:30)
[2017-02-27] MEDS: SENNOSIDES 8.6 MG TAB PO SCH (21:00)
[2017-02-27] MEDS: ATORVASTATIN 80 MG TAB PO SCH (21:18)
[2017-02-28] VITALS (29 sets, daily range): BP systolic 92–129; BP diastolic 54–77; PULSE 74–99; RESP 18–20; TEMP 97.6–99.5; O2SAT 92–100
[2017-02-28] MEDS: PIPERACIL-TAZO 3.375 GM PREMIX 50 ML IV SCH ×3 (00:51→12:23)
[2017-02-28] MEDS: PANTOPRAZOLE SOD 40 MG DELAYED RELEASE TAB PO SCH (06:36)
[2017-02-28] MEDS: INSULIN ASPART SUPPLEMENTAL SCALE SQ SCH ×4 (06:36→21:13)
[2017-02-28 06:41] LABS: HEMATOCRIT 30.8 % (35.0-46.0); MEAN CELL VOLUME 79.8 FL (80.0-100.0); MEAN CORPUSCULAR HEMOGLOBIN 25.7 PG (27.0-34.0); MEAN CORPUSCULAR HGB CONC 32.2 % (32.0-36.0); PLATELET COUNT 346 TH/MM3 (150-450); RED BLOOD COUNT 3.86 MIL/MM3 (4.00-5.30); RED CELL DISTRIBUTION WIDTH 14.1 % (11.6-17.2); REVIEW FLAG FINAL; WHITE BLOOD COUNT 16.2 TH/MM3 (4.0-11.0)
[2017-02-28 07:06] LABS: BICARBONATE 28.7 MEQ/L (21.0-32.0); MAGNESIUM 2.6 MG/DL (1.5-2.5); POTASSIUM 3.3 MEQ/L (3.5-5.1)
[2017-02-28] MEDS ORDERED: VANCOMYCIN INJ 1,500 MG in SODIUM CHLORID 0.9% 500 ML INJ 500 ML IV SCH (08:00)
[2017-02-28] MEDS: glipiZIDE 10 MG TAB PO SCH ×2 (08:00→17:05)
[2017-02-28] MEDS: RESP: IPRATROPIUM 0.5 MG/2.5 ML NEB NEB SCH ×2 (08:52→21:14)
[2017-02-28] MEDS: SODIUM CHLORIDE 0.9% FLUSH 10 ML FLUSH IV FLUSH SCH ×2 (09:00→21:00)
[2017-02-28] MEDS: POLYETHYLENE GLYCOL 17 GM PKG PO SCH (09:11)
[2017-02-28] MEDS: POTASSIUM CHLORIDE 20 MEQ CONTROLLED RELEASE TAB PO SCH ×2 (09:13→21:04)
[2017-02-28] MEDS: FUROSEMIDE 40 MG/4 ML VIAL IV PUSH SCH ×2 (09:13→17:05)
[2017-02-28] MEDS: METOPROLOL TARTRATE 25 MG TAB PO SCH ×2 (09:14→21:04)
[2017-02-28] MEDS: MAGNESIUM HYDROXIDE SUSP 30 ML CUP PO SCH (09:14)
[2017-02-28] MEDS: ASPIRIN 81 MG CHEW TAB PO SCH (09:15)
[2017-02-28] MEDS: DOCUSATE SODIUM 100 MG CAP PO SCH ×2 (09:15→21:03)
[2017-02-28] MEDS: MULTIVITAMINS/MINERALS THERAPEUTIC TAB PO SCH (09:16)
[2017-02-28] MEDS: AMIODARONE 200 MG TAB PO SCH ×2 (09:51→21:03)
[2017-02-28] MEDS ORDERED: POTASSIUM CHLORIDE 25 MEQ EFFERVESCENT TAB PO ONE (11:00)
--- NOTE | 2017-02-28 12:05 | HHI.FPPN ---
Subjective Remarks Patient states that she is doing well this morning. She is excited about the possibility of foreign home. No chest pain, shortness of breath has improved greatly, no fever or chills, no nausea or vomiting, no abdominal pain. Left shoulder is doing better. She is able to move a little bit more. She has been working with PT on this. (Yudy Soriano MD R1) Objective Vitals Vital Signs Date Time Temp Pulse Resp B/P (MAP) Pulse Ox O2 Delivery O2 Flow Rate FiO2 02/28/17 08:57 98 Nasal Cannula 4.00 02/28/17 07:30 97 Nasal Cannula 3.00 02/28/17 07:30 87 02/28/17 07:00 97.9 94 18 129/77 (94) 98 02/28/17 06:00 86 02/28/17 05:00 85 02/28/17 04:00 85 02/28/17 03:30 97.6 78 18 116/65 (82) 100 02/28/17 03:30 100 6.00 02/28/17 03:00 78 02/28/17 02:01 83 02/28/17 01:03 91 02/28/17 00:06 93 02/27/17 23:00 96 02/27/17 23:00 99.1 98 20 104/57 (73) 99 02/27/17 23:00 99 6.00 02/27/17 22:00 92 02/27/17 21:43 95 Nasal Cannula 4.00 02/27/17 21:00 94 02/27/17 20:00 96 02/27/17 19:45 96 6.00 02/27/17 19:45 98.9 100 22 127/80 (96) 96 02/27/17 19:00 92 02/27/17 18:01 92 02/27/17 17:00 90 02/27/17 16:00 84 02/27/17 15:45 97.9 87 18 103/66 (78) 98 02/27/17 15:45 98 6.00 02/27/17 15:00 81 02/27/17 14:01 80 02/27/17 13:00 80 I/O 02/27/17 02/27/17 02/27/17 02/28/17 02/28/17 02/28/17 06:59 14:59 22:59 06:59 14:59 22:59 Intake Total 580 ml 350 ml 580 ml 3710 ml Output Total 1750 ml 600 ml Balance -1170 ml 350 ml -20 ml 3710 ml Intake Oral 480 ml 480 ml 3660 ml IV Total 100 ml 350 ml 100 ml 50 ml Output Urine Total 1750 ml 600 ml # Voids 3 1 # Bowel Movements 0 0 0 (Yudy Soriano MD R1) Result Diagram: 02/28/1760402/28/17604 Objective Remarks GENERAL: Sitting in chair, no distress, nasal cannula in place SKIN: Venous graft site is clear, dry, and intact, no surrounding erythema, no rashes or lesions CARDIOVASCULAR: Regular rate and rhythm. RESPIRATORY: nasal cannula in place, no respiratory distress, clear to auscultation bilaterally GASTROINTESTINAL: Abdomen soft, non-tender, nondistended. MUSCULOSKELETAL: Extremities without clubbing, cyanosis, or edema. No obvious deformities. NEUROLOGICAL: Awake and alert. Normal speech. PSYCHIATRIC: Appropriate mood and affect; insight and judgment normal. Procedures Cardiac catheterization 02/17/17 CABG 02/20/17 (Yudy Soriano MD R1) A/P Assessment and Plan 56 year old female with DM2 and HTN who came into the ED complaining of chest tightness. She has had chest tightness for 3 months, had an abnormal nuclear stress test and had a cardiac catheterization with stent scheduled for 02/16/17 which was cancelled when she changed cardiologists. Continued to have severe chest tightness and shortness of breath during minimal physical activity upon admission. Cardiac Cath 02/17/17 - 90% occlusion of the circumflex, RCA, distal left main and 80-90% occlusion of the LAD. S/p CABG on 02/20. Now with hospital acquired pneumonia and on vancomycin and Zosyn. Discharge Planning Pending post-op CABG recovery, CTS clearance, improvement in pneumonia symptoms (Yudy Soriano MD R1) Attending Attestation Patient seen and examined. Case reviewed and discussed with the resident team. Agree with plan of care as discussed with me and documented in the resident note. (Reyes Al MD) Problem List: (1) Hospital-acquired pneumonia ICD Codes: J18.9 - Pneumonia, unspecified organism Status: Acute Plan: CTA showing bibasilar consolidation and scattered parenchymal infiltrates , treating empirically for hospital acquired pneumonia. Having coughing with sputum production. White count is trending down. No fevers overnight. - Vancomycin and Zosyn started on 02/26-02/27 - Levaquin 750 mg po 02-28- - Encourage incentive spirometry/resp acapella - O2 monitoring and supplementation, currently on Venturi mask - Atrovent 0.5 mg bid via nebulizer - Lasix 40 mg IV bid for diuresis - Pulmonology consulted, appreciate recs - Critical Care consulted by CT surg, appreciate recs * aggressive forced diuresis until there is laboratory evidence of intravascular volume depletion such as creatinine bump or elevated BUN. * Wean oxygen as tolerated to keep SPO2 greater than 90%. (2) CAD (coronary artery disease) ICD Codes: I25.10 - Atherosclerotic heart disease of [place] coronary artery without angina pectoris Status: Acute Plan: 3 months of chest pain, worsening, had a scheduled cath with stent on which was cancelled after changing cardiologists. S/p cath, results below, s/p CABG on 02/20/17 -Cardiology consulted-appreciate recommendations -Cardiac Cath 02/17/17 - 90% occlusion of the circumflex, RCA, distal left main and 80-90% occlusion of the LAD. -CT surgery consulted for CABG -CABG performed on 02/20/17 -Post-op management per CTS -Pulmonary toileting -ASA 81 mg daily, Atorvastatin 80 mg daily, metoprolol 12.5 mg q12hrs - Pain management: Percocet 5/325 PO q3hrs PRN for pain - Cardiac rehab as an outpatient (3) Diabetes mellitus type 2 in obese ICD Codes: E11.9 - Type 2 diabetes mellitus without complications; E66.9 - Obesity, unspecified Status: Acute Plan: Held home medications. A1c of 10.2. Will need f/u of insulin and DM control - Low dose sliding scale insulin - Glipizide 5 mg bid (4) Benign hypertension ICD Codes: I10 - Benign hypertension Status: Chronic Plan: Well-controlled -See plan above for meds (5) FEN Status: Acute Plan: Fluids: PO fluids Electrolytes: Monitor and correct as needed Nutrition: Heart healthy DVT ppx: per CTS (Yudy Soriano MD R1) Problem Qualifiers (1) CAD (coronary artery disease): Yudy Soriano MD R1 Feb 28, 2017 12:05 Reyes Al MD Mar 01, 2017 08:26
[2017-02-28] MEDS: ONDANSETRON HCL 4 MG/2 ML VIAL IV PUSH PRN (12:18)
--- NOTE | 2017-02-28 12:46 | PD.CAR.PN ---
CVT Progress Note Subjective/Hospital Course: 56/ black female presented to ED with chest pain / ruled in for NSTEMI, underwent heart cath showing multivessel disease/ LM 80-90% EF 50% . PMH: obesity BMI 42/ DM on oral glipizide, HTN scheduled for surgery in am , currently pain free 02/21/17 doing well this morning. no complaints. 02/22 pt had low grade temp last night , now requiring 100% NRB mask to maintain sat > 92% will place on intermittent Bipap during day and at night chest tubes dc without difficulty , post CXr pending WBC 20K , did receive steroids in OR needs aggressive pulm toileting OOB ambulate 02/23 was on B[place] last pm total of 4 hrs, sats high 90's with Bipap 92/93% with 100% NRB, desats with ambulation / poor 02 reserve add singular, symbicort 02/24 Clinically stable On high oxygen requirements. Appreciate Dr. Jo's input Continue diuresis and pulmonary toiletry Keep in ICU 02/26 remains on high flow 02, intermittent Bipap / VM leukocytosis / CT chest noted, bilateral infiltrates add Vanc and zosyn, continue aggressive pulm toileting consult Quality Improvement Analyst CTA neg for PE, on lovenox prophylactic continue diuresis + 3 kg 02/27 now on 6liter nasal cannula / on Bipap at night WBC 14K, no fever, appreciate Quality Improvement Analyst input/ on Diamox x 3 doses - 1285/24 hrs / BC neg to date, sputum neg continue vanc and Zosyn until am , then change to po levaquin x 5 days continue pulm toileting ambulation, will transfer to stepdown continue diabetic meds transfer to stepdown 02/28 now on 3 liter nasal cannula will dc IV antibiotics and change to po levaquin continue to wean 02/ may need walk test in am eval for dc in am will need HHC continue ambulation / pulm toileting Objective: Vital Signs Date Time Temp Pulse Resp B/P (MAP) Pulse Ox O2 Delivery O2 Flow Rate FiO2 02/28/17 08:57 98 Nasal Cannula 4.00 02/28/17 07:30 97 Nasal Cannula 3.00 02/28/17 07:30 87 02/28/17 07:00 97.9 94 18 129/77 (94) 98 02/28/17 06:00 86 02/28/17 05:00 85 02/28/17 04:00 85 02/28/17 03:30 97.6 78 18 116/65 (82) 100 02/28/17 03:30 100 6.00 02/28/17 03:00 78 02/28/17 02:01 83 02/28/17 01:03 91 02/28/17 00:06 93 02/27/17 23:00 96 02/27/17 23:00 99.1 98 20 104/57 (73) 99 02/27/17 23:00 99 6.00 02/27/17 22:00 92 02/27/17 21:43 95 Nasal Cannula 4.00 02/27/17 21:00 94 02/27/17 20:00 96 02/27/17 19:45 96 6.00 02/27/17 19:45 98.9 100 22 127/80 (96) 96 02/27/17 19:00 92 02/27/17 18:01 92 02/27/17 17:00 90 02/27/17 16:00 84 02/27/17 15:45 97.9 87 18 103/66 (78) 98 02/27/17 15:45 98 6.00 02/27/17 15:00 81 02/27/17 14:01 80 02/27/17 13:00 80 Labs: Laboratory Tests Test 02/28/17 06:05 White Blood Count 16.2 TH/MM3 (4.0-11.0) Red Blood Count 3.86 MIL/MM3 (4.00-5.30) Hemoglobin 9.9 GM/DL (11.6-15.3) Hematocrit 30.8 % (35.0-46.0) Mean Corpuscular Volume 79.8 FL (80.0-100.0) Mean Corpuscular Hemoglobin 25.7 PG (27.0-34.0) Mean Corpuscular Hemoglobin Concent 32.2 % (32.0-36.0) Red Cell Distribution Width 14.1 % (11.6-17.2) Platelet Count 346 TH/MM3 (150-450) Mean Platelet Volume 8.3 FL (7.0-11.0) Blood Urea Nitrogen 21 MG/DL (7-18) Creatinine 1.16 MG/DL (0.50-1.00) Random Glucose 77 MG/DL (74-106) Calcium Level 8.5 MG/DL (8.5-10.1) Magnesium Level 2.6 MG/DL (1.5-2.5) Sodium Level 137 MEQ/L (136-145) Potassium Level 3.3 MEQ/L (3.5-5.1) Chloride Level 101 MEQ/L (98-107) Carbon Dioxide Level 28.7 MEQ/L (21.0-32.0) Anion Gap 7 MEQ/L (5-15) Estimat Glomerular Filtration Rate 59 ML/MIN (>89) Result Diagram: 02/28/1760402/28/17604 Telemetry: NSR (1) CAD (coronary artery disease) Plan: on ASA, stain , BB diuresis / OOB pulm toileting nebs ezpap acapella Antibiotics / change to po levaquin (2) NSTEMI (non-ST elevated myocardial infarction) (3) Obesity (4) Diabetes mellitus type 2 in obese Plan: insulin sliding scale / glipizide diabetic diet (5) Benign hypertension (6) Hospital-acquired pneumonia Plan: aggressive pulm toileting HCAP coverage Problem Qualifiers (1) CAD (coronary artery disease): (2) Obesity: Concepcion Oquendo Feb 28, 2017 12:45
[2017-02-28] MEDS: LEVOFLOXACIN 750 MG TAB PO SCH (14:00)
[2017-02-28] MEDS: ENOXAPARIN SODIUM 30 MG/0.3 ML SYRINGE SQ SCH (17:05)
[2017-02-28] MEDS: SENNOSIDES 8.6 MG TAB PO SCH (21:00)
[2017-02-28] MEDS: ATORVASTATIN 80 MG TAB PO SCH (21:04)
[2017-03-01] VITALS (18 sets, daily range): BP systolic 106–122; BP diastolic 60–70; PULSE 74–96; RESP 14–18; TEMP 98.6–99; O2SAT 95–96
[2017-03-01 06:07] LABS: AUTOMATED NEUTROPHIL # 9.4 TH/MM3 (1.8-7.7); BASOPHIL % 0.2 % (0.0-2.0); EOSINOPHIL # 0.3 TH/MM3 (0-0.4); EOSINOPHIL % 2.2 % (0.0-4.0); HEMATOCRIT 32.7 % (35.0-46.0); HEMO FLAGS DIFF FINAL; LYMPH % 16.3 % (9.0-44.0); LYMPHOCYTE # 2.1 TH/MM3 (1.0-4.8); MEAN CORPUSCULAR HEMOGLOBIN 25.6 PG (27.0-34.0); MONO % 9.5 % (0.0-8.0); NEUT % 71.8 % (16.0-70.0); PLATELET COUNT 375 TH/MM3 (150-450); RED BLOOD COUNT 4.08 MIL/MM3 (4.00-5.30); RED CELL DISTRIBUTION WIDTH 14.2 % (11.6-17.2); WHITE BLOOD COUNT 13.1 TH/MM3 (4.0-11.0)
[2017-03-01] MEDS: PANTOPRAZOLE SOD 40 MG DELAYED RELEASE TAB PO SCH (06:32)
[2017-03-01] MEDS: INSULIN ASPART SUPPLEMENTAL SCALE SQ SCH ×2 (06:32→11:23)
--- NOTE | 2017-03-01 06:37 | RADRPT ---
EXAM DATE/TIME: 03/01/2017 06:16 [facility] COMPARISON: CHEST SINGLE AP, February 23, 2017, 3:57. INDICATIONS : Shortness of breath. MEDICAL HISTORY : Hypertension. Diabetes mellitus type II. SURGICAL HISTORY : Hysterectomy. CABG. ENCOUNTER: Subsequent ACUITY: 1 week PAIN SCORE: 6/10 LOCATION: Bilateral chest FINDINGS: PA and lateral views of the chest demonstrate subsegmental opacity at the lung bases most characteris tic of atelectasis or scarring. Findings slightly improved from February 23. Previous median sternotomy . No significant effusion. No pneumothorax. CONCLUSION: 1. Subsegmental basilar airspace disease slightly improved from February 23. Fernando Archer MD on March 01, 2017 at 6:34 Board Certified Radiologist. This report was verified electronically.
[2017-03-01 06:43] LABS: BICARBONATE 26.9 MEQ/L (21.0-32.0); POTASSIUM 3.6 MEQ/L (3.5-5.1)
[2017-03-01] MEDS ORDERED: PHARMACY ORDERED LAB ONE (07:45)
[2017-03-01] MEDS: RESP: IPRATROPIUM 0.5 MG/2.5 ML NEB NEB SCH (08:10)
[2017-03-01] MEDS: MAGNESIUM HYDROXIDE SUSP 30 ML CUP PO SCH (08:51)
[2017-03-01] MEDS: POLYETHYLENE GLYCOL 17 GM PKG PO SCH (08:51)
[2017-03-01] MEDS: ASPIRIN 81 MG CHEW TAB PO SCH (08:52)
[2017-03-01] MEDS: METOPROLOL TARTRATE 25 MG TAB PO SCH (08:52)
[2017-03-01] MEDS: glipiZIDE 10 MG TAB PO SCH (08:52)
[2017-03-01] MEDS: POTASSIUM CHLORIDE 20 MEQ CONTROLLED RELEASE TAB PO SCH (08:52)
[2017-03-01] MEDS: MULTIVITAMINS/MINERALS THERAPEUTIC TAB PO SCH (08:52)
[2017-03-01] MEDS: AMIODARONE 200 MG TAB PO SCH (08:52)
[2017-03-01] MEDS: DOCUSATE SODIUM 100 MG CAP PO SCH (08:52)
[2017-03-01] MEDS: SODIUM CHLORIDE 0.9% FLUSH 10 ML FLUSH IV FLUSH SCH (08:55)
[2017-03-01] MEDS: FUROSEMIDE 40 MG/4 ML VIAL IV PUSH SCH (08:55)
[2017-03-01] MEDS: LEVOFLOXACIN 750 MG TAB PO SCH (11:23)
--- NOTE | 2017-03-01 12:04 | HHI.FPPN ---
Subjective Remarks Patient seen and examined this morning. No acute events overnight. Patient reports feeling a lot better. She is off oxygen. She is excited about the possibility of going home today. She denies any other concerns/complaints. Denies any chest pain or difficulty breathing. No pain in her legs. (Gus Alarcon MD, R2) Objective Vitals Vital Signs Date Time Temp Pulse Resp B/P (MAP) Pulse Ox O2 Delivery O2 Flow Rate FiO2 03/01/17 11:37 98.6 85 14 106/70 (82) 96 03/01/17 11:37 96 Room Air 03/01/17 10:00 90 03/01/17 09:00 90 03/01/17 08:32 98.6 91 14 109/69 (82) 96 03/01/17 08:32 96 Room Air 03/01/17 08:10 95 21 03/01/17 08:00 92 03/01/17 07:00 90 03/01/17 06:36 88 03/01/17 05:12 92 03/01/17 04:20 87 03/01/17 03:00 96 Room Air 03/01/17 03:00 85 03/01/17 03:00 99.0 96 18 122/60 (80) 96 03/01/17 02:17 84 03/01/17 01:21 90 03/01/17 00:00 90 02/28/17 23:00 94 02/28/17 23:00 98.9 99 20 96/63 (74) 93 02/28/17 23:00 93 Room Air 02/28/17 22:00 94 02/28/17 21:16 92 02/28/17 21:00 92 02/28/17 20:00 90 02/28/17 19:33 94 Room Air 02/28/17 19:33 97.8 93 18 114/66 (82) 94 02/28/17 19:00 90 02/28/17 18:03 88 02/28/17 17:17 86 02/28/17 16:12 84 02/28/17 15:14 99.5 81 18 93/60 (71) 96 02/28/17 15:14 83 02/28/17 15:14 96 Room Air 02/28/17 14:13 80 02/28/17 13:36 77 02/28/17 12:00 80 I/O 02/28/17 02/28/17 02/28/17 03/01/17 03/01/17 03/01/17 07:00 15:00 23:00 07:00 15:00 23:00 Intake Total 3710 ml 1080 ml 200 ml Balance 3710 ml 1080 ml 200 ml Intake Oral 3660 ml 480 ml 200 ml IV Total 50 ml 600 ml # Voids 1 4 1 # Bowel Movements 0 0 (Gus Alarcon MD, R2) Result Diagram: 03/01/1743603/01/17436 Objective Remarks GENERAL: Sitting in chair, no distress SKIN: Venous graft site is clear, dry, and intact, no surrounding erythema, no rashes or lesions CARDIOVASCULAR: Regular rate and rhythm. RESPIRATORY: no respiratory distress, clear to auscultation bilaterally GASTROINTESTINAL: Abdomen soft, non-tender, nondistended. MUSCULOSKELETAL: Extremities without clubbing, cyanosis, or edema. No obvious deformities. NEUROLOGICAL: Awake and alert. Normal speech. PSYCHIATRIC: Appropriate mood and affect; insight and judgment normal. Procedures Cardiac catheterization 02/17/17 CABG 02/20/17 (Gus Alarcon MD, R2) A/P Assessment and Plan 56 year old female with DM2 and HTN who came into the ED complaining of chest tightness. She has had chest tightness for 3 months, had an abnormal nuclear stress test and had a cardiac catheterization with stent scheduled for 02/16/17 which was cancelled when she changed cardiologists. Continued to have severe chest tightness and shortness of breath during minimal physical activity upon admission. Cardiac Cath 02/17/17 - 90% occlusion of the circumflex, RCA, distal left main and 80-90% occlusion of the LAD. S/p CABG on 02/20. Now with hospital acquired pneumonia and on vancomycin and Zosyn. Discharge Planning Pending post-op CABG recovery, CTS clearance (Gus Alarcon MD, R2) Problem List: (1) Hospital-acquired pneumonia ICD Codes: J18.9 - Pneumonia, unspecified organism Status: Resolved Plan: CTA showing bibasilar consolidation and scattered parenchymal infiltrates , treating empirically for hospital acquired pneumonia. Having coughing with sputum production. White count is trending down. No fevers overnight. - Vancomycin and Zosyn started on 02/26-02/28 - Levaquin 750 mg po 02-28- - Encourage incentive spirometry/resp acapella - O2 monitoring and supplementation, currently on Venturi mask - Atrovent 0.5 mg bid via nebulizer - Lasix 40 mg IV bid for diuresis - Pulmonology consulted, appreciate recs - Critical Care consulted by CT surg, appreciate recs * aggressive forced diuresis until there is laboratory evidence of intravascular volume depletion such as creatinine bump or elevated BUN. * Wean oxygen as tolerated to keep SPO2 greater than 90%. (2) CAD (coronary artery disease) ICD Codes: I25.10 - Atherosclerotic heart disease of [place] coronary artery without angina pectoris Status: Acute Plan: 3 months of chest pain, worsening, had a scheduled cath with stent on which was cancelled after changing cardiologists. S/p cath, results below, s/p CABG on 02/20/17 -Cardiology consulted-appreciate recommendations -Cardiac Cath 02/17/17 - 90% occlusion of the circumflex, RCA, distal left main and 80-90% occlusion of the LAD. -CT surgery consulted for CABG -CABG performed on 02/20/17 -Post-op management per CTS -Possible d/c today with home health -Will need cardiac rehab outpatient -ASA 81 mg daily, Atorvastatin 80 mg daily, metoprolol 12.5 mg q12hrs -Amiodarone 200mg BID -Lasix 40mg BID -Pain management: Percocet 5/325 PO q3hrs PRN for pain (3) Diabetes mellitus type 2 in obese ICD Codes: E11.9 - Type 2 diabetes mellitus without complications; E66.9 - Obesity, unspecified Status: Chronic Plan: Held home medications. A1c of 10.2. Will need f/u of insulin and DM control - Low dose sliding scale insulin - Glipizide 5 mg bid (4) Benign hypertension ICD Codes: I10 - Benign hypertension Status: Chronic Plan: Well-controlled -See plan above for meds (5) FEN Status: Acute Plan: Fluids: PO fluids Electrolytes: Monitor and correct as needed Nutrition: Diabetic diet DVT ppx: Lovenox, per CTS (Gus Alarcon MD, R2) Problem Qualifiers (1) CAD (coronary artery disease): Gus Alarcon MD, R2 Mar 01, 2017 12:04 Deepa Thurston MD Mar 01, 2017 21:00
[2017-03-01] MEDS ORDERED: OXYC1TAB63 PO (14:46)
[2017-03-01] MEDS ORDERED: AMIO200T PO (14:46)
[2017-03-01] MEDS ORDERED: LEVA750T9 PO (14:46)
[2017-03-01] MEDS ORDERED: METO25TA3 PO (14:46)
[2017-03-01] MEDS ORDERED: ASPI81CH25 PO (14:46)
[2017-03-01] MEDS ORDERED: GLIP10TA6 PO (14:46)
[2017-03-01] MEDS ORDERED: THERM PO (14:46)
[2017-03-01] MEDS ORDERED: DOCU1CAP39 PO (14:46)
[2017-03-01] MEDS ORDERED: FURO1TAB60 PO (14:46)
[2017-03-01] MEDS ORDERED: POTA20TA5 PO (14:46)
[2017-03-01] MEDS ORDERED: CYCL1TAB29 PO (14:46)
[2017-03-01] MEDS ORDERED: ATOR1TAB18 PO (14:46)
--- NOTE | 2017-03-01 14:51 | HHI.DS ---
Discharge Summary Admission Date Feb 16, 2017 at 12:26 Discharge Date: Mar 01, 2017 Admitting Diagnosis angina (1) NSTEMI (non-ST elevated myocardial infarction) ICD Codes: I21.4 - Non-ST elevation (NSTEMI) myocardial infarction Status: Acute (2) Hospital-acquired pneumonia ICD Codes: J18.9 - Pneumonia, unspecified organism Status: Resolved (3) Diabetes mellitus type 2 in obese ICD Codes: E11.9 - Type 2 diabetes mellitus without complications; E66.9 - Obesity, unspecified Status: Chronic (4) BMI 40.0-44.9, adult ICD Codes: Z68.41 - Body mass index (BMI) 40.0-44.9, adult Status: Chronic (5) S/P CABG (coronary artery bypass graft) ICD Codes: Z95.1 - Presence of aortocoronary bypass graft Status: Acute Procedures CABG x 4 02/20 TSE to LAD - good SVG to D1 - good SVG to OM1 - good SVG to PDA - good EVH Brief History 56/ black female presented to ED with chest pain / ruled in for NSTEMI, underwent heart cath showing multivessel disease/ LM 80-90% EF 50% . PMH: obesity BMI 42/ DM on oral glipizide, HTN CBC/BMP: 03/01/17 0437 03/01/17 0437 Significant Findings Laboratory Tests Test 02/27/17 05:25 02/27/17 11:47 02/28/17 06:05 03/01/17 04:37 White Blood Count 14.1 TH/MM3 (4.0-11.0) 16.2 TH/MM3 (4.0-11.0) 13.1 TH/MM3 (4.0-11.0) Hemoglobin 10.8 GM/DL (11.6-15.3) 9.9 GM/DL (11.6-15.3) 10.4 GM/DL (11.6-15.3) Hematocrit 33.6 % (35.0-46.0) 30.8 % (35.0-46.0) 32.7 % (35.0-46.0) Mean Corpuscular Hemoglobin 25.8 PG (27.0-34.0) 25.7 PG (27.0-34.0) 25.6 PG (27.0-34.0) Blood Urea Nitrogen 22 MG/DL (7-18) 21 MG/DL (7-18) 23 MG/DL (7-18) Creatinine 1.44 MG/DL (0.50-1.00) 1.16 MG/DL (0.50-1.00) 1.09 MG/DL (0.50-1.00) Random Glucose 352 MG/DL (74-106) Calcium Level 8.4 MG/DL (8.5-10.1) Sodium Level 134 MEQ/L (136-145) Potassium Level 3.1 MEQ/L (3.5-5.1) 3.3 MEQ/L (3.5-5.1) Chloride Level 94 MEQ/L (98-107) Estimat Glomerular Filtration Rate 46 ML/MIN (>89) 59 ML/MIN (>89) 63 ML/MIN (>89) Red Blood Count 3.86 MIL/MM3 (4.00-5.30) Mean Corpuscular Volume 79.8 FL (80.0-100.0) Magnesium Level 2.6 MG/DL (1.5-2.5) Neutrophils (%) (Auto) 71.8 % (16.0-70.0) Monocytes (%) (Auto) 9.5 % (0.0-8.0) Neutrophils # (Auto) 9.4 TH/MM3 (1.8-7.7) Monocytes # (Auto) 1.2 TH/MM3 (0-0.9) Imaging Last Impressions Chest X-Ray 03/01/17 0600 Signed Impressions: Service Date/Time: February 06:16 - CONCLUSION: 1. Subsegmental basilar airspace disease slightly improved from February 23. Fernando Archer MD CT Angiography 02/25/17 0000 Signed Impressions: Service Date/Time: Saturday, February 25, 2017 17:01 - CONCLUSION: Bibasilar consolidation with scattered areas of parenchymal infiltrates and no evidence for pulmonary embolus. Carlo Fisher MD Lower Extremity Ultrasound 02/18/17 0000 Signed Impressions: Service Date/Time: Saturday, February 18, 2017 17:42 - CONCLUSION: Within normal limits. Omar Hogan MD Carotid Artery Ultrasound 02/18/17 0000 Signed Impressions: Service Date/Time: Saturday, February 18, 2017 18:05 - CONCLUSION: No evidence of hemodynamically significant carotid stenosis. Omar Hogan MD Current Medications Medications (Trade) Dose Ordered Sig/Telma Route Start Time Stop Time Status Last Admin (NS Flush) 2 ml UNSCH PRN IV FLUSH 02/16/17 14:15 (NS Flush) 2 ml BID IV FLUSH 02/16/17 21:00 03/01/17 08:55 (Narcan Inj) 0.4 mg UNSCH PRN IV 02/16/17 14:15 (Lipitor) 80 mg HS PO 02/17/17 21:00 02/28/17 21:04 (Aspirin Chew) 81 mg DAILY PO 02/21/17 09:00 03/01/17 08:52 (Protonix) 40 mg DAILY@06 PO 02/21/17 06:00 03/01/17 06:32 (Tylenol) 650 mg Q4H PRN PO 02/20/17 18:00 (Percocet 5-325 Mg) 1 tab Q3H PRN PO 02/20/17 18:00 02/27/17 18:28 (Zofran Inj) 4 mg Q6H PRN IV PUSH 02/20/17 18:00 02/28/17 12:18 (Apresoline Inj) 10 mg Q4H PRN IV 02/20/17 18:00 (Lopressor Inj) 2.5 mg Q1H PRN IV PUSH 02/20/17 18:00 (Duoneb Neb) 1 ampule Q2HR NEB PRN NEB 02/20/17 18:00 02/22/17 09:51 (Colace) 100 mg BID PO 02/21/17 21:00 03/01/17 08:52 (Theragran M Tab) 1 tab DAILY PO 02/21/17 09:00 03/01/17 08:52 (Milk Of Magnesia Liq) 30 ml DAILY PO 02/21/17 13:00 02/28/17 09:14 (Miralax) 17 gm DAILY PO 02/22/17 09:00 02/28/17 09:11 (Senokot) 8.6 mg HS PO 02/21/17 21:00 02/28/17 21:00 (Fleets Enema (Adult)) 133 ml UNSCH PRN RECTAL 02/21/17 06:45 (D50w (Vial) Inj) 50 ml UNSCH PRN IV 02/21/17 06:45 (Glucagon Inj) 1 mg UNSCH PRN OTHER 02/21/17 06:45 (Lasix Inj) 40 mg BID@09,18 IV PUSH 02/21/17 09:00 03/01/17 08:55 (Flexeril) 5 mg Q8H PRN PO 02/21/17 13:00 02/26/17 20:43 (Lopressor) 12.5 mg Q12HR PO 02/23/17 09:00 03/01/17 08:52 (Atrovent Neb) 0.5 mg BID NEB NEB 02/23/17 20:00 03/01/17 08:10 (NovoLOG SUPPLEMENTAL SCALE) 1 ACHS SQ 02/24/17 11:00 03/01/17 11:23 (Lovenox Inj) 30 mg DAILY@18 SQ 02/24/17 17:30 02/28/17 17:05 (Cordarone) 200 mg Q12HR PO 02/26/17 21:00 03/01/17 08:52 (Glucotrol) 10 mg BID@, PO 02/27/17 17:00 03/01/17 08:52 (KCl) 20 meq Q12HR PO 02/28/17 09:00 03/01/17 08:52 (Levaquin) 750 mg DAILY@1100 PO 02/28/17 14:00 03/01/17 11:23 PE at Discharge GENERAL: SKIN: Warm and dry. sternal incision intact and well approximated , incision left leg intact HEAD: Normocephalic. EYES: No scleral icterus. No injection or drainage. NECK: Supple, trachea midline. No JVD or lymphadenopathy. CARDIOVASCULAR: Regular rate and rhythm without murmurs, gallops, or rubs. RESPIRATORY: Breath sounds equal bilaterally. No accessory muscle use. GASTROINTESTINAL: Abdomen soft, non-tender, nondistended. MUSCULOSKELETAL: No cyanosis, or edema. BACK: Nontender without obvious deformity. No CVA tenderness. Hospital Course PMH: obesity BMI 42/ DM on oral glipizide, HTN scheduled for surgery in am , currently pain free 02/21/17 doing well this morning. no complaints. 02/22 pt had low grade temp last night , now requiring 100% NRB mask to maintain sat > 92% will place on intermittent Bipap during day and at night chest tubes dc without difficulty , post CXr pending WBC 20K , did receive steroids in OR needs aggressive pulm toileting OOB ambulate 02/23 was on Bipapa last pm total of 4 hrs, sats high 90's with Bipap 92/93% with 100% NRB, desats with ambulation / poor 02 reserve add singular, symbicort 02/24 Clinically stable On high oxygen requirements. Appreciate Dr. Jo's input Continue diuresis and pulmonary toiletry Keep in ICU 02/26 remains on high flow 02, intermittent Bipap / VM leukocytosis / CT chest noted, bilateral infiltrates add Vanc and zosyn, continue aggressive pulm toileting consult [employer] Member CTA neg for PE, on lovenox prophylactic continue diuresis + 3 kg 02/27 now on 6liter nasal cannula / on Bipap at night WBC 14K, no fever, appreciate [employer] Member input/ on Diamox x 3 doses - 1285/24 hrs / BC neg to date, sputum neg continue vanc and Zosyn until am , then change to po levaquin x 5 days continue pulm toileting ambulation, will transfer to stepdown continue diabetic meds transfer to stepdown 02/28 now on 3 liter nasal cannula will dc IV antibiotics and change to po levaquin continue to wean 02/ may need walk test in am eval for dc in am will need HHC continue ambulation / pulm toileting 03/01 remains on room air in NSR , stable for dc home continue amiodarone for 2 weeks , prophylaxis only continue diuretic daily f/u appointment in [address] Perry continue levaquin x 5 days Pt Condition on Discharge: Good Discharge Disposition: Disch w/ Home Health Serv Discharge Instructions DIET: Follow Instructions for: Heart Healthy Diet Activities you can perform: Full Weight Bearing, Shower Only-No Bath Activities to avoid: Strenuous Activity, Driving Additional Activity Instructio: no lifting >8 lbs or gallons of milk Follow up Referrals: Cardiology with Cedric Bush MD PCP Follow-up with Stephen Perez MD Surgical with Lluvia Perry MD New Orders: BASIC METABOLIC PROF - 2 Weeks CBC NO DIFF - 2 Weeks X-RAY CHEST PA & LAT - 2 Weeks New Medications: Furosemide (Lasix) 40 Mg Tab 40 MG PO DAILY for Blood Pressure Management, #30 TAB 0 Refills Amiodarone (Amiodarone) 200 Mg Tab 200 MG PO Q12HR for heart rhythm for 14 Days, #28 TAB 0 Refills for heart rhythm prophylaxis / only for two weeks, no refill Aspirin (Aspirin Low Strength) 81 Mg Chew 81 MG PO DAILY for Blood Clot Prevention, #100 EA 2 Refills Atorvastatin (Atorvastatin) 80 Mg Tab 80 MG PO HS for Cholesterol Management, #30 TAB 2 Refills Cyclobenzaprine (Flexeril) 10 Mg Tab 5 MG PO Q12HR PRN for MUSCLE SPASMS, #30 TAB 0 Refills Docusate Sodium (Dok) 100 Mg Cap 100 MG PO BID for Constipation, #60 CAP Glipizide (Glipizide) 10 Mg Tab 10 MG PO BID@08,17 for Blood Sugar Management, #60 TAB Take 30 minutes before a meal Levofloxacin (Levaquin) 750 Mg Tablet 750 MG PO DAILY@1100 for bronchitis , #5 TAB 0 Refills Metoprolol Tartrate (Metoprolol Tartrate) 25 Mg Tab 12.5 MG PO Q12HR for Blood Pressure Management, #30 TAB 2 Refills Multiple Vitamins W/ Minerals (Thera M Plus) 1 Tab 1 TAB PO DAILY for multi vitamin, #30 TAB Oxycodone-Acetaminophen (Oxycodone-Acetaminophen) 5-325 mg Tab 1 TAB PO Q6HR PRN for PAIN SCALE 1 TO 5, #40 TAB 0 Refills Potassium Chloride Microencaps (Potassium Chloride Microencaps) 20 Meq Tab 20 MEQ PO DAILY for Blood Pressure Management, #30 TAB 0 Refills take with lasix Continued Medications: Glipizide (Glipizide) 10 Mg Tab 10 MG PO DAILY for Blood Sugar Management, #180 TAB 0 Refills Take 30 minutes before a meal Discontinued Medications: Aspirin DR (Aspir-81) 81 Mg Tabdr Lisinopril (Lisinopril) 40 Mg Tab 40 MG PO DAILY for Blood Pressure Management, #180 TAB 0 Refills Nitroglycerin SL (Nitroglycerin SL) 0.4 Mg Subl 0.4 MG SL DIRECTED PRN for CHEST PAIN, #25 TAB.SL 5 Refills ONE TABLET UNDER THE TONGUE NEEDED FOR CHEST PAIN, MAY REPEAT EVERY FIVE MINUTES FOR A TOTAL OF 3 DOSES OR CALL 911 IF NO RELIEF Concepcion Oquendo Mar 01, 2017 14:51
--- NOTE | 2017-03-02 09:28 | RSPPFT ---
DATE OF PROCEDURE: 02/19/17 COMMENTS: Spirometry demonstrates an FEV1 of 0.2 at 42% of predicted, FVC of 0.7 at 47%, FEF 25-75 is 27% of predicted. Post-bronchodilator study was not conducted. Flow volume loops are atypical and cannot be interpreted. IMPRESSION: 1. Moderately severe obstructive airways disease.
[2017-03-28] MEDS ORDERED: METO25TA3 PO (11:11)
[2017-03-28] MEDS ORDERED: PERI8.6T PO (11:11)
== END 2017-03-01 15:40 | disposition home health service (06) | DRG 233 ==
LOC: NEPE 10:28 → NEDA 12:26 → HCIN 15:07 → HCPC 02-20 12:55 → HCVR 02-20 17:06 → HCIN 02-27 10:04
PROVIDERS: ADMIT Thoracic Surgery (Cardiothoracic Vascular Surgery); ATTEND Thoracic Surgery (Cardiothoracic Vascular Surgery)
PROC: 4A023N7 Measurement of Cardiac Sampling and Pressure, Left Heart, Percutaneous Approach (ICD-10-PCS; 2017-02-17)
PROC: B2111ZZ Fluoroscopy of Multiple Coronary Arteries using Low Osmolar Contrast (ICD-10-PCS; 2017-02-17)
PROC: B2151ZZ Fluoroscopy of Left Heart using Low Osmolar Contrast (ICD-10-PCS; 2017-02-17)
PROC: 021209W Bypass Coronary Artery, Three Arteries from Aorta with Autologous Venous Tissue, Open Approach (ICD-10-PCS; 2017-02-20)
PROC: 06BQ4ZZ Excision of Left Saphenous Vein, Percutaneous Endoscopic Approach (ICD-10-PCS; 2017-02-20)
PROC: 5A1221Z Performance of Cardiac Output, Continuous (ICD-10-PCS; 2017-02-20)
PROC: 02100Z9 Bypass Coronary Artery, One Artery from Left Internal Mammary, Open Approach (ICD-10-PCS; principal; 2017-02-20 12:44)
DX: I21.4 Non-ST elevation (NSTEMI) myocardial infarction (principal); J18.9 Pneumonia, unspecified organism; Z68.41 Body mass index [BMI] 40.0-44.9, adult; J95.89 Other postprocedural complications and disorders of respiratory system, not elsewhere classified; J98.11 Atelectasis; E11.65 Type 2 diabetes mellitus with hyperglycemia; I10 Essential (primary) hypertension; E66.01 Morbid (severe) obesity due to excess calories; I25.10 Atherosclerotic heart disease of native coronary artery without angina pectoris; E87.70 Fluid overload, unspecified; M25.511 Pain in right shoulder; Y95 Nosocomial condition; Z79.82 Long term (current) use of aspirin; Z79.84 Long term (current) use of oral hypoglycemic drugs
CPT/HCPCS: 36430; 71010; 71020; 71275; 76937; 80048; 80053; 80061; 81001; 82550; 82552; 82948; 83036; 83735; 84484; 85002; 85007; 85025; 85027; 85610; 85730; 86850; 86900; 86901; 86920; 87040; 87070; 87205; 87641; 90732; 93005; 93306; 93458; 93880; 93970; 93998; 94002; 94003; 94010; 94150; 94640; 94664; 94667; 94668; C1769; C1893; J0131; J0171; J0690; J1120; J1200; J1644; J1650; J1815; J1817; J1940; J2150; J2250; J2270; J2370; J2405; J2440; J2543; J2710; J2720; J2930; J3010; J3370; J3475; J3480; J7030; J7040; J7050; J7120; J7644; P9016; P9047; Q9967